=== PATIENT | female | born 1960 | race Caucasian/White ===

== ENCOUNTER 2019-08-13 07:08 | Outpatient (CLI) | payer OTHER, SELFPAY ==
[2019-08-13 08:14] LABS: Alanine Aminotransferase 24 U/L (4-35); Albumin Level 4.2 g/dL (3.5-5.1); Alkaline Phosphatase 97 U/L (38-126); Aspartate Amino Transferase 26 U/L (14-36); Bilirubin,Total 0.5 mg/dL (0.2-1.3); Blood Urea Nitrogen 15 mg/dL (7-17); CRP 0.7 mg/dL (<1.0); Calcium 9.3 mg/dL (8.4-10.2); Carbon Dioxide 24 mmol/L (22-30); Chloride 102 mmol/L (98-107); Creatine Kinase 84 U/L (30-135); Estimated Glomerular Filt Rate > 60; Glucose 171 mg/dL (65-105); Potassium 3.7 mmol/L (3.4-5.0); Sodium 136 mmol/L (137-145)
[2019-08-13 08:17] LABS: Rheumatoid Factor < 8.6 IU/ML (<12)
[2019-08-13 08:19] LABS: Basophils Percent Auto 0.6 % (0.2-1.2); Eosinophils Absolute Auto 0.3 K/mm3 (0-0.3); Eosinophils Percent Auto 6.1 % (0-4.4); Hematocrit 41.8 % (37.0-47.0); Hemoglobin 13.9 g/dL (12.0-15.0); Immature Granulocyte Absolute 0.01 K/mm3 (0.00-0.031); Immature Granulocyte Percent A 0.2 % (0-0.5); Lymphocytes Absolute Auto 1.78 K/mm3 (0.9-3.2); Lymphocytes Percent Auto 33.1 % (18.3-44.2); Mean Corpuscular HGB Conc 33.3 g/dl (32-36); Mean Corpuscular Volume 93.1 fl (80-100); Mean Platelet Volume 10.5 fl (7.4-10.4); Monocytes Absolute Auto 0.5 K/mm3 (0.1-0.6); Monocytes Percent Auto 8.8 % (2.6-8.5); Neutrophils Absolute Auto 2.8 K/mm3 (1.3-6.7); Neutrophils Percent Auto 51.2 % (45.5-73.1); Platelet Count Result 209 k/mm3 (150-375); Red Blood Count 4.49 M/mm3 (4.2-5.4); Red Cell Distribution Width 12.6 % (11.5-14.5); White Blood Count 5.4 K/mm3 (4.5-10.0)
[2019-08-13 09:31] LABS: Add Urine Microscopic? NO; Appearance Urine Clear (Clear); Bilirubin Urine Negative (Negative); Blood Urine Negative (Negative); Color Urine Yellow (Yellow); Glucose Urine UA Negative (Negative); Ketones Urine Negative (Negative); Leukocyte Esterase Ur Negative LEU/UL (NEGATIVE); Mucus Urine Rare /lpf; Nitrate Urine Negative (Negative); Protein Urine Negative (Negative); RBC Urine 0-2 /hpf (0-2); Specific Grav Ur 1.016 (1.001-1.035); Squamous Epithelial Cell Urine Occasional /hpf (Few); Urobilinogen Urine Negative mg/dL (<2.0); WBC Urine 0-3 /hpf (0-3)
[2019-08-15 12:11] LABS: Aldolase 6.4 U/L (<=8.1)
[2019-08-15 20:48] LABS: Anti Cardio Antibody IgM <12 MPL (<=12); Anti Cardiolipin Antibody IgA <11 APL (<=11); Anti Cardiolipin Antibody IgG <14 GPL (<=14)
[2019-08-18 19:58] LABS: JO 1 Antibody <1.0; SS-A <1.0; SS-B <1.0
[2019-08-20 12:54] LABS: Anti Nuclear Antibody Pattern Nuclear, Speckled; Anti Nuclear Antibody Titer 1:40 (Negative)
== END 2019-08-13 07:09 | disposition home or self-care (01) ==
PROVIDERS: PCP Physician Assistant
DX: R21 Rash and other nonspecific skin eruption (principal)
CPT/HCPCS: 36415; 80053; 81003; 82085; 82550; 85025; 86038; 86039; 86140; 86147; 86225; 86235; 86430

== ENCOUNTER 2019-09-13 08:13 | Outpatient (RCR) | payer OTHER, SELFPAY ==
[2019-09-12 15:29] LABS: Basophils Percent Auto 0.6 % (0.2-1.2); Eosinophils Absolute Auto 0.5 K/mm3 (0-0.3); Eosinophils Percent Auto 8.9 % (0-4.4); Hematocrit 39.2 % (37.0-47.0); Hemoglobin 13.2 g/dL (12.0-15.0); Immature Granulocyte Absolute 0.01 K/mm3 (0.00-0.031); Immature Granulocyte Percent A 0.2 % (0-0.5); Lymphocytes Absolute Auto 1.48 K/mm3 (0.9-3.2); Lymphocytes Percent Auto 28.5 % (18.3-44.2); Mean Corpuscular HGB Conc 33.7 g/dl (32-36); Mean Corpuscular Hemoglobin 31.3 pg (26-34); Mean Corpuscular Volume 92.9 fl (80-100); Monocytes Absolute Auto 0.5 K/mm3 (0.1-0.6); Neutrophils Absolute Auto 2.7 K/mm3 (1.3-6.7); Neutrophils Percent Auto 51.8 % (45.5-73.1); Platelet Count Result 228 k/mm3 (150-375); Red Blood Count 4.22 M/mm3 (4.2-5.4); Red Cell Distribution Width 12.8 % (11.5-14.5); White Blood Count 5.2 K/mm3 (4.5-10.0)
[2019-09-12 15:44] LABS: Alanine Aminotransferase 33 U/L (4-35); Alkaline Phosphatase 82 U/L (38-126); Aspartate Amino Transferase 37 U/L (14-36); Bilirubin,Total 0.4 mg/dL (0.2-1.3); Blood Urea Nitrogen 20 mg/dL (7-17); CRP < 0.5 mg/dL (<1.0); Calcium 8.9 mg/dL (8.4-10.2); Carbon Dioxide 25 mmol/L (22-30); Chloride 100 mmol/L (98-107); Creatine Kinase 162 U/L (30-135); Estimated Glomerular Filt Rate > 60; Glucose 140 mg/dL (65-105); Potassium 3.7 mmol/L (3.4-5.0); Sodium 136 mmol/L (137-145)
[2019-09-12 15:55] LABS: Erythrocyte Sedimentation Rate 17 mm/hr (0-20)
[2019-09-13 09:35] LABS: Cholesterol 187 mg/dL (0-200); HDL Direct 88 mg/dL; Triglycerides 83 mg/dL (<150)
[2019-09-13 09:46] LABS: LDL Cholesterol Direct 86 mg/dL
== END 2019-12-11 23:59 | disposition home or self-care (01) ==
LOC: ANHLAB 08:13
PROVIDERS: PCP Physician Assistant
DX: R21 Rash and other nonspecific skin eruption (principal)
CPT/HCPCS: 36415; 80053; 80061; 82550; 84182; 85025; 85652; 86140; 86235

== ENCOUNTER 2019-09-19 13:07 | Outpatient (CLI) | payer OTHER, SELFPAY ==
--- NOTE | ~2019-09-19 | XR_ITS ---
EXAMINATION: XR chest 2V DATE: 09/19/2019 13:41 INDICATION: Rash of unknown origin. TECHNIQUE: Frontal and lateral views of the chest were obtained. COMPARISON: Chest 2 views 08/22/2014 FINDINGS: The chest demonstrates clear lungs without pneumonia, pleural effusion, or pneumothorax. Th e heart size is normal. There is a fracture deformity of left seventh rib, new from 08/22/2014. IMPRESSION: 1. No acute cardiopulmonary disease. Reviewed, dictated and finalized at location A. R WORKER
--- NOTE | ~2019-09-19 | MR_ITS ---
EXAMINATION: MR femur RT wo/w con, MR femur LT wo/w con DATE: 09/19/2019 15:12 INDICATION: Rash/other nonspecific skin interruption. TECHNIQUE: Magnetic resonance imaging (MRI) of the right thigh and left thigh were performed without and with 18 mL Multihance intravenous contrast. Sequences included axial, sagittal and coronal T1-weighted FSE, axial and sagittal T2-weighted FS FSE, coronal fluid sensitive FSE STIR, axial, coronal T1-weighted F S FSE and post contrast axial, and coronal T1-weighted FS FSE. Axial and coronal images of both thigh s were obtained together. Sagittal images of the left and right thigh were obtained separately. COMPARISON: None. FINDINGS: Bone alignment is normal. There is normal bone marrow signal throughout. No evident the hip or knee j oint effusions. There is a relatively symmetric pattern of small patchy regions of increased fluid si gnal and enhancement in some of the musculature of the proximal thighs. This includes within the bila teral proximal vastus lateralis, proximal semitendinosus muscles, obturator internus and quadratus fe kate with relatively symmetric distribution. Small region of mild increased T2 signal at the proxima l left gracilis muscle which is without evident associated enhancement. No asymmetric fatty muscular atrophy of the thighs or pelvis. Subcutaneous varicosities at the lateral, posterolateral and to a le sser degree medial aspect of both thighs. IMPRESSION: 1. Relatively symmetric pattern of small regions of nonspecific increased T2 signal and enhancement w ithin bilateral obturator internus, quadratus femoris, semitendinosus and vastus lateralis muscles. D ifferential particularly given the distribution the proximal lower limbs would include dermatomyositi s, polymyositis, drug related myelopathy, HIV related myelopathy, autoimmune connective tissue diseas es and inclusion body myositis. Given the distribution, infection, vascular, trauma or overuse etiolo gies would be less likely. Reviewed, dictated and finalized at location A. E TEAM LEADER IMPRESSION: 1. Relatively symmetric pattern of small regions of nonspecific increased T2 si gnal and enhancement within bilateral obturator internus, quadratus femoris, se mitendinosus and vastus lateralis muscles. Differential particularly given the distribution the proximal lower limbs would include dermatomyositis, polymyosit is, drug related myelopathy, HIV related myelopathy, autoimmune connective tiss ue diseases and inclusion body myositis. Given the distribution, infection, vas cular, trauma or overuse etiologies would be less likely.
[2019-09-19 13:54] LABS: Estimated Glomerular Filt Rate > 60
== END 2019-09-19 13:08 | disposition home or self-care (01) ==
PROVIDERS: PCP Physician Assistant
DX: R21 Rash and other nonspecific skin eruption (principal); R93.7 Abnormal findings on diagnostic imaging of other parts of musculoskeletal system
CPT/HCPCS: 36415; 71046; 73720; A9577

== ENCOUNTER 2019-09-23 14:05 | Outpatient (CLI) | payer OTHER, SELFPAY ==
--- NOTE | ~2019-09-23 | MR_ITS ---
EXAMINATION: MR shoulder LT wo/w con DATE: 09/23/2019 17:36 INDICATION: Dermatomyositis. Rash and other nonspecific skin interruption. TECHNIQUE: Magnetic resonance imaging (MRI) of the left shoulder was performed without and with 18 mL MultiHance intravenous contrast. Sequences included axial PD-weighted FS FSE, coronal oblique PD-barb ghted FS FSE and T2-weighted FS FSE, and sagittal oblique T2-weighted FS FSE and T1-weighted FSE. Pos tcontrast sequences included coronal oblique and axial oblique T1-weighted FS FSE. COMPARISON: None. FINDINGS: Coracoacromial arch: The acromion undersurface is curved in morphology (type II). Subacromial spurring is noted. There is moderate acromioclavicular joint osteoarthritis. There is moderate subacromial/subdeltoid bursitis. Rotator cuff: There is a full-thickness tear of anterior supraspinatus tendon measuring 4 mm anterior to posterior by 1.8 cm proximal to distal. There is moderate infraspinatus tendinopathy. Teres minor tendon is nor mal. There is severe subscapularis tendinopathy with partial tear. There is volume loss and mild fatt y atrophy of supraspinatus and subscapularis muscle bellies. There is patchy increased T2-weighted si gnal intensity and contrast enhancement involving the supraspinatus, infraspinatus, teres minor, delt oid, coracobrachialis, and triceps muscles. Biceps tendon and glenoid labrum: There is a complete tear of proximal biceps tendon. The glenoid labrum is intact. Fluid: There is no glenohumeral joint effusion. Bones/cartilage: Humeral head cartilage is normal. Glenoid cartilage is normal. IMPRESSION: 1. Patchy abnormalities of the musculature. These findings are not specific for any particular myopat hy. The differential diagnosis includes rhabdomyolysis, autoimmune myositis, polymyositis, dermatomyo sitis, infectious myositis, sarcoid myopathy, and muscular dystrophy. 2. Full-thickness rotator cuff tear. 3. Complete tear of proximal biceps tendon. Reviewed, dictated and finalized at location A. IMPRESSION: 1. Patchy abnormalities of the musculature. These findings are not specific for any particular myopathy. The differential diagnosis includes rhabdomyolysis, a utoimmune myositis, polymyositis, dermatomyositis, infectious myositis, sarcoid myopathy, and muscular dystrophy. 2. Full-thickness rotator cuff tear. 3. Complete tear of proximal biceps tendon.
--- NOTE | ~2019-09-23 | MR_ITS ---
EXAMINATION: MR shoulder RT wo/w con DATE: 09/23/2019 17:36 INDICATION: Dermatomyositis. Rash and other nonspecific skin eruption. TECHNIQUE: Magnetic resonance imaging (MRI) of the right shoulder was performed without intravenous c ontrast. Sequences included axial PD-weighted FS FSE, coronal oblique PD-weighted FS FSE and T2-weigh lissette FS FSE, and sagittal oblique T2-weighted FS FSE and T1-weighted FSE. Postcontrast sequences inclu ded sagittal oblique and coronal oblique T1-weighted FS FSE. COMPARISON: None. FINDINGS: Coracoacromial arch: The acromion undersurface is curved in morphology (type II). Subacromial spurring is noted. There is mild acromioclavicular joint osteoarthritis. There is moderate subacromial/subdeltoid bursitis. Rotator cuff: There is a full-thickness tear of anterior supraspinatus tendon measuring 9 mm anterior to posterior by 10 mm proximal to distal. There is severe infraspinatus tendinopathy. There is a partial tear of t he infraspinatus myotendinous junction. Teres minor tendon is normal. There is mild subscapularis ten dinopathy. There is no asymmetric fatty atrophy of the rotator cuff muscle bellies. There is patchy i ncreased T2-weighted signal intensity and contrast enhancement involving the rotator cuff muscles, de ltoid muscle, and triceps muscle. Biceps tendon and glenoid labrum: Biceps tendon is in bicipital groove. There is mild intra-articular biceps tendinopathy. The glenoid labrum is normal. Fluid: There is no glenohumeral joint effusion. Bones/cartilage: Glenoid cartilage is normal. Humeral head cartilage is normal. IMPRESSION: 1. Patchy abnormalities of the musculature including the rotator cuff muscles, deltoid muscle, and tr iceps muscle. These findings are not specific for any particular diffuse myopathy. The differential d iagnosis includes rhabdomyolysis, autoimmune myositis, polymyositis, dermatomyositis, infectious myos itis, sarcoid myopathy, and muscular dystrophy. 2. Full-thickness rotator cuff tear. Partial tear of infraspinatus myotendinous junction. Reviewed, dictated and finalized at location A. IMPRESSION: 1. Patchy abnormalities of the musculature including the rotator cuff muscles, deltoid muscle, and triceps muscle. These findings are not specific for any par ticular diffuse myopathy. The differential diagnosis includes rhabdomyolysis, a utoimmune myositis, polymyositis, dermatomyositis, infectious myositis, sarcoid myopathy, and muscular dystrophy. 2. Full-thickness rotator cuff tear. Partial tear of infraspinatus myotendinous junction.
[2019-09-23 15:20] LABS: Estimated Glomerular Filt Rate > 60
== END 2019-09-23 14:06 | disposition home or self-care (01) ==
LOC: ANHIMG 14:09
PROVIDERS: PCP Physician Assistant
DX: R21 Rash and other nonspecific skin eruption (principal); S46.212A Strain of muscle, fascia and tendon of other parts of biceps, left arm, initial encounter; X58.XXXA Exposure to other specified factors, initial encounter
CPT/HCPCS: 36415; 73223; A9577

== ENCOUNTER 2019-10-03 10:07 | Outpatient (CLI) | payer OTHER, SELFPAY ==
--- NOTE | 2019-10-11 12:10 | WPDPFTINT ---
PFT Interpretation PFT Interpretation: DOS: 10/03/2019 REQUESTING: Yolis Gonzalez MD REASON FOR TESTING: Autoimmune disease PULMONARY FUNCTION TESTS The results are reproducible. Spirometry: Normal FEV1, FVC, and FEV1%. No significant change with bronchodilator. Lung volumes: Normal total lung capacity 108%, mild air trapping residual volume 129%, increased airway resistance 143%. Diffusion: DLCO 94% normal Flow volume loop: Normal. IMPRESSION: Normal spirometry, mild air trapping suggestive of an obstructive defect, normal diffusion and flow volume loop. No evidence of interstitial lung disease. Leah Farias MD
== END 2019-10-03 10:08 | disposition home or self-care (01) ==
PROVIDERS: PCP Physician Assistant
DX: R21 Rash and other nonspecific skin eruption (principal)
CPT/HCPCS: 94060; 94726; 94729

== ENCOUNTER 2019-10-19 13:01 | Emergency (ER) | payer OTHER, SELFPAY ==
[2019-10-19 13:08] VITALS: BP 130/100; PULSE 119; RESP 19; TEMP 36.4; O2SAT 95
--- NOTE | 2019-10-19 13:14 | ED.URI ---
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 Pt's PCP called in a prescription of Ciprodex for her that she has been taking with no relief. Pt has also been using OTC antihistamine. Pt notes that she had a hole that collapsed in her right ear when she was a child. Pt has a recent PMHx of Dermatomyositis that she was diagnosed with after she started to experience a rash and itching. Pt denies any drainage from these lesions. Pt is on Prednisone, etc for this. She denies congestion, a fever, a sore throat, rhinorrhea, a cough, ear drainage, dental pain, tinnitus, hearing changes, and recent travel. Onset (ago): day(s) (5) Relieving factors: nothing Treatments prior to arrival: other (Ciprodex) Related Data Home Medications Medication Instructions Recorded Confirmed aspirin 81 mg tablet,delayed 81 mg PO DAILY 07/02/19 10/19/19 release calcium polycarbophil 625 mg tablet 1,250 mg PO DAILY 07/02/19 10/19/19 cholecalciferol (vitamin D3) 125 5,000 unit PO DAILY 07/02/19 10/19/19 mcg (5,000 unit) capsule dexlansoprazole 60 mg 60 mg PO DAILY 07/02/19 10/19/19 capsule,biphase delayed release vitamin B complex 1 cap PO DAILY 07/02/19 10/19/19 hydroxychloroquine 200 mg tablet 200 mg PO BID 10/15/19 10/19/19 methotrexate sodium 2.5 mg tablet 2.5 mg PO WEEKLY 10/15/19 10/19/19 prednisone 10 mg tablet 10 mg PO DAILY 10/15/19 10/19/19 Allergies Allergy/AdvReac Type Severity Reaction Status Date / Time No Known Allergies Allergy Unverified 10/15/19 15:10 Review of Systems Review of Systems: Narrative: The patient has been informed that they may have pre-hypertension or Hypertension based on a BP reading in the department. I recommend that the patient call the primary care provider listed on their discharge instructions or a physician of their choice this week to arrange follow up for further evaluation of possible pre-hypertension or Hypertension General/Constitutional: Denies: weight loss,fever Eyes: Denies: Redness,discharge Ears/Nose/Throat: Reports: right ear discomfort; Denies: Epistaxis, ear drainage, congestion, sore throat, rhinorrhea, dental pain, tinnitus, hearing changes Respiratory: Denies: Hemoptysis, cough Gastrointestinal: Denies: Vomiting, Bleeding-rectal Skin: Denies: Lumps, eruption Neurologic: Denies: Focal Weakness,Sz Hematologic: Denies: Petechiae/Purpura Psychiatric: Denies: Suicidal ideation REPLACED BY [facility] Past Medical History Medical History Dermatomyositis Gallstones GERD (gastroesophageal reflux disease) IBS (irritable bowel syndrome) Surgical History Surgical History H/O: hysterectomy Family History Family History Mother Family history of thyroid disease Family history of diabetes mellitus in first degree relative Family history of malignant neoplasm of breast in first degree relative Sibling Family history of malignant neoplasm of breast in first degree relative Family history of type 2 diabetes mellitus Social History Social History Smoking status: Never smoker Second hand tobacco smoke exposure: Yes Alcohol intake: never Comments PCP: TRINY Lopez At time of signature, agree with nursing past medical, surgical, social and family history. There is no relevant family history pertinent to the presenting complaint Exam Narrative: Exam Narrative: General Appearance: Obese Normocephalic, Conjunctiva clear Ear: L. Ext
== END 2019-10-19 13:45 | disposition home or self-care (01) ==
PROVIDERS: Emergency Provider Emergency Medicine; PCP Physician Assistant
DX: H92.01 Otalgia, right ear (principal); K21.9 Gastro-esophageal reflux disease without esophagitis; Z79.82 Long term (current) use of aspirin
CPT/HCPCS: 99213; G0463

== ENCOUNTER 2019-11-12 10:33 | Outpatient (CLI) | payer OTHER, SELFPAY ==
--- NOTE | ~2019-11-12 | MM_ITS ---
EXAMINATION: MM screening thuy BI w gina HISTORY: Screening mammogram TECHNIQUE: Craniocaudal and mediolateral oblique 3-D tomosynthesis images were obtained and synthetic 2-D images were generated. CAD analysis was submitted and interpreted. COMPARISON: Comparison to multiple prior studies sequentially, with oldest reviewed study dated 06/16. BREAST PARENCHYMAL COMPOSITION: The breasts are almost entirely fatty. FINDINGS: There is no evidence of suspicious mass, calcification, or architectural distortion to sugg est malignancy in either breast. There has been no suspicious interval change. IMPRESSION: 1. No mammographic evidence of malignancy. 2. Recommend routine screening mammography in one year. BI-RADS Category 1: Negative Reviewed, dictated and finalized at location A.
== END 2019-11-12 10:34 | disposition home or self-care (01) ==
LOC: ANHIMG 10:35
PROVIDERS: PCP Physician Assistant; Visit Provider Obstetrics & Gynecology
DX: Z12.31 Encounter for screening mammogram for malignant neoplasm of breast (principal)
CPT/HCPCS: 77063; 77067

== ENCOUNTER 2019-11-23 08:30 | Outpatient (CLI) | payer OTHER, SELFPAY ==
--- NOTE | 2019-11-23 09:09 | ECG_ITS ---
Measurements Intervals [place] Rate: 93 P: 38 MT: 150 QRS: -20 QRSD: 98 T: 30 QT: 346 QTc: 431 Interpretive Statements SINUS RHYTHM VOLTAGE CRITERIA FOR LVH LATERAL INFARCT, AGE INDETERMINATE ABNORMAL ECG Electronically Signed On 11-23-2019 14:48:38 CDT by David Tsang D.O.
[2019-11-23 09:48] LABS: Hemoglobin A1C 8.7 % (<5.7)
[2019-11-23 09:52] LABS: Alanine Aminotransferase 32 U/L (4-35); Albumin Level 3.9 g/dL (3.5-5.1); Alkaline Phosphatase 84 U/L (38-126); Aspartate Amino Transferase 24 U/L (14-36); Bilirubin,Total 0.5 mg/dL (0.2-1.3); Blood Urea Nitrogen 12 mg/dL (7-17); Calcium 8.9 mg/dL (8.4-10.2); Carbon Dioxide 29 mmol/L (22-30); Chloride 103 mmol/L (98-107); Estimated Glomerular Filt Rate > 60; Glucose 171 mg/dL (65-105); Potassium 3.6 mmol/L (3.4-5.0); Sodium 136 mmol/L (137-145)
== END 2019-11-23 08:31 | disposition home or self-care (01) ==
PROVIDERS: PCP Physician Assistant; Visit Provider Physician Assistant
DX: E11.9 Type 2 diabetes mellitus without complications (principal); R94.31 Abnormal electrocardiogram [ECG] [EKG]
CPT/HCPCS: 36415; 80053; 83036; 93005

== ENCOUNTER 2020-01-03 16:09 | Outpatient (CLI) | payer OTHER, SELFPAY ==
--- NOTE | ~2020-01-03 | US_ITS ---
EXAMINATION: US venous doppler [facility] DATE: 01/03/2020 16:43 INDICATION: Left lower limb pain and swelling. TECHNIQUE: Grayscale ultrasound images without and with compression and Doppler ultrasound images of the left lower extremity veins were obtained. COMPARISON: None. FINDINGS: The visualized portions of left common femoral vein, profunda (deep) femoral vein, femoral vein, popl iteal vein, peroneal veins, posterior tibial veins, gastrocnemius vein and greater saphenous vein out flow are patent. IMPRESSION: 1. No deep venous thrombosis in the left lower limb. Reviewed, dictated and finalized at location A.
== END 2020-01-03 16:10 | disposition home or self-care (01) ==
PROVIDERS: PCP Physician Assistant; Visit Provider Physician Assistant
DX: M79.89 Other specified soft tissue disorders (principal)
CPT/HCPCS: 93971

== ENCOUNTER 2020-02-12 16:06 | Outpatient (CLI) | payer OTHER, SELFPAY ==
[2020-02-12 17:05] LABS: Hemoglobin 12.8 g/dL (12.0-15.0); Mean Corpuscular HGB Conc 34.6 g/dl (32-36); Mean Corpuscular Hemoglobin 32.8 pg (26-34); Mean Corpuscular Volume 94.9 fl (80-100); Mean Platelet Volume 10.1 fl (7.4-10.4); Platelet Count Result 214 k/mm3 (150-375); Red Cell Distribution Width 13.1 % (11.5-14.5); White Blood Count 4.7 K/mm3 (4.5-10.0)
[2020-02-12 17:36] LABS: Erythrocyte Sedimentation Rate 14 mm/hr (0-20)
[2020-02-12 17:46] LABS: Alanine Aminotransferase 92 U/L (4-35); Albumin Level 4.3 g/dL (3.5-5.1); Alkaline Phosphatase 76 U/L (38-126); Anion Gap 10.8 mmol/L (7-16); Aspartate Amino Transferase 56 U/L (14-36); Bilirubin,Total 0.4 mg/dL (0.2-1.3); Blood Urea Nitrogen 20 mg/dL (7-17); CRP < 0.5 mg/dL (<1.0); Calcium 10.2 mg/dL (8.4-10.2); Carbon Dioxide 27 mmol/L (22-30); Chloride 102 mmol/L (98-107); Creatine Kinase 93 U/L (30-135); Estimated Glomerular Filt Rate 57; Glucose 105 mg/dL (65-105); Potassium 3.8 mmol/L (3.4-5.0); Sodium 136 mmol/L (137-145)
[2020-02-12 17:50] LABS: Complement C3 92 mg/dL (88-165)
[2020-02-12 18:46] LABS: Folic Acid > 20.0 ng/mL (2.76->20)
[2020-02-14 22:11] LABS: Mitochondrial (M2) Ab (IgG) <=20.0 U (<=20.0)
[2020-02-15 18:36] LABS: Anti Cardio Antibody IgM <12 MPL (<=12); Anti Cardiolipin Antibody IgA <11 APL (<=11); Anti Cardiolipin Antibody IgG <14 GPL (<=14)
[2020-02-16 10:30] LABS: SS-A <1.0; SS-B <1.0
[2020-02-16 17:47] LABS: JO 1 Antibody <1.0; Scleroderma 70 Antibody <1.0
[2020-02-16 21:55] LABS: Anti Nuclear Antibody Pattern Nuclear, Speckled; Anti Nuclear Antibody Titer 1:40 (Negative)
[2020-02-17 01:52] LABS: Aldolase 9.1 U/L (<=8.1)
[2020-02-19 20:05] LABS: Complement Total CH50 >60 U/mL (31-60)
== END 2020-02-12 16:07 | disposition home or self-care (01) ==
PROVIDERS: PCP Internal Medicine; Visit Provider Internal Medicine Rheumatology
DX: R53.83 Other fatigue (principal); E55.9 Vitamin D deficiency, unspecified; E53.8 Deficiency of other specified B group vitamins; Z51.81 Encounter for therapeutic drug level monitoring; M33.90 Dermatopolymyositis, unspecified, organ involvement unspecified
CPT/HCPCS: 36415; 80053; 82085; 82306; 82550; 82607; 82746; 83520; 84439; 84443; 85027; 85652; 86038; 86039; 86140; 86146; 86147; 86160; 86162; 86225; 86235

== ENCOUNTER 2020-02-13 15:03 | Outpatient (CLI) | payer OTHER, SELFPAY ==
[2020-02-13 19:37] LABS: Add Urine Microscopic? YES; Appearance Urine Clear (Clear); Bilirubin Urine Negative (Negative); Blood Urine Negative (Negative); Color Urine Yellow (Yellow); Glucose Urine UA Negative (Negative); Ketones Urine Negative (Negative); Leukocyte Esterase Ur Trace LEU/UL (NEGATIVE); Mucus Urine Rare /lpf; Nitrate Urine Negative (Negative); Protein Urine Negative (Negative); RBC Urine 0-2 /hpf (0-2); Specific Grav Ur 1.018 (1.001-1.035); Squamous Epithelial Cell Urine Occasional /hpf (Few); Urobilinogen Urine Negative mg/dL (<2.0); WBC Urine 0-3 /hpf (0-3)
[2020-02-20 21:12] LABS: Lupus dRVVT 1:1 Mix Interpreta Not Indicated; Lupus dRVVT Screen 26 sec (<=45); PTT-LA Screen 29 sec (<=40)
== END 2020-02-13 15:04 | disposition home or self-care (01) ==
LOC: ANHWCLAB 15:07
PROVIDERS: PCP Internal Medicine; Visit Provider Internal Medicine Rheumatology
DX: D23.9 Other benign neoplasm of skin, unspecified (principal)
CPT/HCPCS: 36415; 81001; 85613; 85730

== ENCOUNTER 2020-03-04 14:38 | Outpatient (CLI) | payer OTHER, SELFPAY ==
[2020-03-13 16:05] LABS: TPMT Activity 13
== END 2020-03-04 14:39 | disposition home or self-care (01) ==
PROVIDERS: PCP Internal Medicine
DX: M33.90 Dermatopolymyositis, unspecified, organ involvement unspecified (principal)
CPT/HCPCS: 36415; 82657

== ENCOUNTER 2020-04-01 08:09 | Outpatient (CLI) | payer OTHER, SELFPAY ==
[2020-04-01 08:41] LABS: Hemoglobin A1C 6.7 % (<5.7)
[2020-04-01 08:43] LABS: Alanine Aminotransferase 26 U/L (4-35); Alkaline Phosphatase 75 U/L (38-126); Anion Gap 3 mmol/L (8-16); Aspartate Amino Transferase 25 U/L (14-36); Bilirubin,Total 0.5 mg/dL (0.2-1.3); Blood Urea Nitrogen 17 mg/dL (7-17); Carbon Dioxide 30 mmol/L (22-30); Chloride 106 mmol/L (98-107); Estimated Glomerular Filt Rate > 60; Glucose 186 mg/dL (65-105); Potassium 3.8 mmol/L (3.4-5.0); Sodium 139 mmol/L (137-145)
== END 2020-04-01 08:10 | disposition home or self-care (01) ==
PROVIDERS: PCP Internal Medicine; Visit Provider Physician Assistant
DX: E11.9 Type 2 diabetes mellitus without complications (principal)
CPT/HCPCS: 36415; 80053; 83036

== ENCOUNTER 2020-04-03 14:58 | Outpatient (CLI) | payer OTHER, SELFPAY ==
[2020-04-03 15:53] LABS: Basophils Percent Auto 0.3 % (0.2-1.2); Eosinophils Absolute Auto 0.1 K/mm3 (0-0.3); Eosinophils Percent Auto 0.5 % (0-4.4); Hemoglobin 13.6 g/dL (12.0-15.0); Immature Granulocyte Absolute 0.06 K/mm3 (0.00-0.031); Immature Granulocyte Percent A 0.6 % (0-0.5); Lymphocytes Absolute Auto 1.57 K/mm3 (0.9-3.2); Lymphocytes Percent Auto 16.8 % (18.3-44.2); Mean Corpuscular Hemoglobin 32.8 pg (26-34); Mean Corpuscular Volume 96.4 fl (80-100); Mean Platelet Volume 10.4 fl (7.4-10.4); Monocytes Absolute Auto 0.6 K/mm3 (0.1-0.6); Monocytes Percent Auto 6.2 % (2.6-8.5); Neutrophils Absolute Auto 7.1 K/mm3 (1.3-6.7); Neutrophils Percent Auto 75.6 % (45.5-73.1); Platelet Count Result 231 k/mm3 (150-375); Red Blood Count 4.15 M/mm3 (4.2-5.4); Red Cell Distribution Width 13.2 % (11.5-14.5); White Blood Count 9.4 K/mm3 (4.5-10.0)
[2020-04-03 16:03] LABS: Alanine Aminotransferase 32 U/L (4-35); Albumin Level 4.1 g/dL (3.5-5.1); Alkaline Phosphatase 77 U/L (38-126); Anion Gap 3 mmol/L (8-16); Aspartate Amino Transferase 30 U/L (14-36); Bilirubin,Total 0.5 mg/dL (0.2-1.3); Blood Urea Nitrogen 18 mg/dL (7-17); Calcium 9.7 mg/dL (8.4-10.2); Carbon Dioxide 28 mmol/L (22-30); Chloride 103 mmol/L (98-107); Estimated Glomerular Filt Rate > 60; Glucose 150 mg/dL (65-105); Potassium 3.8 mmol/L (3.4-5.0); Sodium 134 mmol/L (137-145)
== END 2020-04-03 14:59 | disposition home or self-care (01) ==
PROVIDERS: PCP Internal Medicine
DX: Z51.81 Encounter for therapeutic drug level monitoring (principal); Z79.899 Other long term (current) drug therapy
CPT/HCPCS: 36415; 80053; 85025

== ENCOUNTER 2020-04-17 14:32 | Outpatient (CLI) | payer OTHER, SELFPAY ==
[2020-04-17 15:05] LABS: Basophils Percent Auto 0.3 % (0.2-1.2); Eosinophils Absolute Auto 0.1 K/mm3 (0-0.3); Eosinophils Percent Auto 1.4 % (0-4.4); Hematocrit 38.7 % (37.0-47.0); Hemoglobin 13.4 g/dL (12.0-15.0); Immature Granulocyte Absolute 0.02 K/mm3 (0.00-0.031); Immature Granulocyte Percent A 0.3 % (0-0.5); Lymphocytes Absolute Auto 1.27 K/mm3 (0.9-3.2); Lymphocytes Percent Auto 19.7 % (18.3-44.2); Mean Corpuscular HGB Conc 34.6 g/dl (32-36); Mean Corpuscular Hemoglobin 33.2 pg (26-34); Mean Corpuscular Volume 95.8 fl (80-100); Mean Platelet Volume 10.2 fl (7.4-10.4); Monocytes Absolute Auto 0.5 K/mm3 (0.1-0.6); Neutrophils Absolute Auto 4.6 K/mm3 (1.3-6.7); Neutrophils Percent Auto 71.3 % (45.5-73.1); Platelet Count Result 200 k/mm3 (150-375); Red Blood Count 4.04 M/mm3 (4.2-5.4); Red Cell Distribution Width 13.1 % (11.5-14.5); White Blood Count 6.5 K/mm3 (4.5-10.0)
[2020-04-17 15:19] LABS: Alanine Aminotransferase 22 U/L (4-35); Albumin Level 3.9 g/dL (3.5-5.1); Alkaline Phosphatase 71 U/L (38-126); Anion Gap 5 mmol/L (8-16); Aspartate Amino Transferase 28 U/L (14-36); Bilirubin,Total 0.5 mg/dL (0.2-1.3); Blood Urea Nitrogen 21 mg/dL (7-17); Calcium 9.9 mg/dL (8.4-10.2); Carbon Dioxide 31 mmol/L (22-30); Chloride 103 mmol/L (98-107); Creatine Kinase 93 U/L (30-135); Estimated Glomerular Filt Rate > 60; Glucose 173 mg/dL (65-105); Potassium 3.6 mmol/L (3.4-5.0); Sodium 139 mmol/L (137-145)
== END 2020-04-17 14:33 | disposition home or self-care (01) ==
PROVIDERS: PCP Internal Medicine; Visit Provider Internal Medicine Rheumatology
DX: M33.10 Other dermatomyositis, organ involvement unspecified (principal); Z51.81 Encounter for therapeutic drug level monitoring
CPT/HCPCS: 36415; 80053; 82085; 82550; 85025

== ENCOUNTER 2020-05-01 14:49 | Outpatient (CLI) | payer OTHER, SELFPAY ==
[2020-05-01 15:30] LABS: Basophils Percent Auto 0.5 % (0.2-1.2); Eosinophils Absolute Auto 0.2 K/mm3 (0-0.3); Eosinophils Percent Auto 3.5 % (0-4.4); Hematocrit 39.6 % (37.0-47.0); Hemoglobin 13.5 g/dL (12.0-15.0); Immature Granulocyte Absolute 0.03 K/mm3 (0.00-0.031); Immature Granulocyte Percent A 0.5 % (0-0.5); Lymphocytes Absolute Auto 1.41 K/mm3 (0.9-3.2); Lymphocytes Percent Auto 23.7 % (18.3-44.2); Mean Corpuscular HGB Conc 34.1 g/dl (32-36); Mean Corpuscular Hemoglobin 32.8 pg (26-34); Mean Corpuscular Volume 96.4 fl (80-100); Mean Platelet Volume 9.6 fl (7.4-10.4); Monocytes Absolute Auto 0.7 K/mm3 (0.1-0.6); Monocytes Percent Auto 11.1 % (2.6-8.5); Neutrophils Absolute Auto 3.6 K/mm3 (1.3-6.7); Neutrophils Percent Auto 60.7 % (45.5-73.1); Platelet Count Result 246 k/mm3 (150-375); Red Blood Count 4.11 M/mm3 (4.2-5.4); Red Cell Distribution Width 13.1 % (11.5-14.5)
[2020-05-01 15:45] LABS: Alanine Aminotransferase 22 U/L (4-35); Albumin Level 4.1 g/dL (3.5-5.1); Alkaline Phosphatase 76 U/L (38-126); Anion Gap 3 mmol/L (8-16); Aspartate Amino Transferase 28 U/L (14-36); Bilirubin,Total 0.4 mg/dL (0.2-1.3); Blood Urea Nitrogen 22 mg/dL (7-17); Calcium 9.7 mg/dL (8.4-10.2); Carbon Dioxide 32 mmol/L (22-30); Chloride 104 mmol/L (98-107); Estimated Glomerular Filt Rate > 60; Glucose 154 mg/dL (65-105); Potassium 3.9 mmol/L (3.4-5.0); Sodium 139 mmol/L (137-145)
== END 2020-05-01 14:50 | disposition home or self-care (01) ==
LOC: ANHLAB 14:54
PROVIDERS: PCP Internal Medicine
DX: Z51.81 Encounter for therapeutic drug level monitoring (principal); Z79.899 Other long term (current) drug therapy
CPT/HCPCS: 36415; 80053; 85025

== ENCOUNTER 2020-05-06 14:40 | Outpatient (CLI) | payer OTHER, SELFPAY ==
--- NOTE | ~2020-05-06 | DEXA_ITS ---
Bone Density Report Name: Rachel Galvan Age: 60 Sex: Female Ethnicity: White Date of : 1960 Indication: postmenopausal; height loss; inflammatory bowel disease; history of glucocorticoids; hysterectomy; Referring Provider: WAGNER BRINK Study: Bone densitometry was performed. Exam Date: May 06, 2020 Accession number: [id number] Bone Density: Region BMD T-score Z-score Classification AP Spine (L1-L4) 0.871 -1.6 -0.2 Osteopenia Femoral Neck (Left) 0.796 -0.5 0.8 Normal Total Hip (Left) 0.971 0.2 1.1 Normal Total Hip Bilateral Avg 0.972 0.2 1.1 Normal Femoral Neck (Right) 0.749 -0.9 0.3 Normal Total Hip (Right) 0.972 0.2 1.1 Normal World Health Organization criteria for BMD impression classify patients as: Normal (T-score at or above -1.0), Osteopenia (T-score between -1.0 and -2.5), or Osteoporosis (T-score at or below -2.5). 10-year Fracture Risk(1): Major Osteoporotic Fracture 10% Hip Fracture 0.6% Reported Risk Factors: [place] (), Neck BMD=0.749, BMI=34.2, glucocorticoids (1) FRAX(R) Version 3.08. Fracture probability calculated for an untreated patient. Fracture probability may be lower if the patient has received treatment. Previous Exams: Region Exam Age BMD T-score BMD Change BMD Change Date g/cm2 vs Baseline vs Previous AP Spine(L1-L4) 05/06/2020 60 0.871 -1.6 -0.070(-7.4%)* -0.070(-7.4%)* 07/01/2013 53 0.941 -1.0 Total Hip(Left) 05/06/2020 60 0.971 0.2 -0.176(-15.3%) -0.176(-15.3%) 07/01/2013 53 1.147 1.7 Total Hip(Right) 05/06/2020 60 0.972 0.2 -0.213(-18.0%) -0.213(-18.0%) 07/01/2013 53 1.185 2.0 *Denotes significance at 95% confidence level, LSC for AP Spine = 0.022 g/cm2, LSC for Total Hip = 0.027 g/cm2 Clinical Information Provided by Patient: Has taken Glucocorticoids Has used the following medications: Vitamin D Has the following medical conditions: Inflammatory bowel diseases, Hysterectomy Patient maximum height was 65 Menopause Age: 53 Onset of menses at age 17 Number of children 3 Impression: The patient has low bone mass, based on the Total Spine T-score. The patient has an estimated ten-year risk of hip fracture of 0.6% and an estimated ten-year risk of major fracture of 10%, based on the WHO FRAX algorithm. The patient has risk factors, including: history of glucocorticoid therapy. The BMD for the AP Spine(L1-L4) decreased, changing by -7.4% since the last DXA exam. T
== END 2020-05-06 14:41 | disposition home or self-care (01) ==
LOC: ANHIMG 14:41
PROVIDERS: PCP Internal Medicine; Visit Provider Internal Medicine Rheumatology
DX: Z78.0 Asymptomatic menopausal state (principal); M85.88 Other specified disorders of bone density and structure, other site
CPT/HCPCS: 77080

== ENCOUNTER 2020-05-15 14:42 | Outpatient (CLI) | payer OTHER, SELFPAY ==
[2020-05-15 15:11] LABS: Basophils Percent Auto 0.6 % (0.2-1.2); Eosinophils Absolute Auto 0.2 K/mm3 (0-0.3); Eosinophils Percent Auto 3.4 % (0-4.4); Hemoglobin 12.7 g/dL (12.0-15.0); Immature Granulocyte Absolute 0.01 K/mm3 (0.00-0.031); Immature Granulocyte Percent A 0.2 % (0-0.5); Lymphocytes Absolute Auto 1.15 K/mm3 (0.9-3.2); Lymphocytes Percent Auto 21.5 % (18.3-44.2); Mean Corpuscular HGB Conc 34.3 g/dl (32-36); Mean Corpuscular Hemoglobin 32.5 pg (26-34); Mean Corpuscular Volume 94.6 fl (80-100); Mean Platelet Volume 9.7 fl (7.4-10.4); Monocytes Absolute Auto 0.5 K/mm3 (0.1-0.6); Monocytes Percent Auto 8.4 % (2.6-8.5); Neutrophils Absolute Auto 3.5 K/mm3 (1.3-6.7); Neutrophils Percent Auto 65.9 % (45.5-73.1); Platelet Count Result 227 k/mm3 (150-375); Red Blood Count 3.91 M/mm3 (4.2-5.4); Red Cell Distribution Width 12.5 % (11.5-14.5); White Blood Count 5.4 K/mm3 (4.5-10.0)
[2020-05-15 15:27] LABS: Alanine Aminotransferase 22 U/L (4-35); Alkaline Phosphatase 84 U/L (38-126); Anion Gap 7 mmol/L (8-16); Aspartate Amino Transferase 28 U/L (14-36); Bilirubin,Total 0.5 mg/dL (0.2-1.3); Blood Urea Nitrogen 17 mg/dL (7-17); Calcium 9.4 mg/dL (8.4-10.2); Carbon Dioxide 27 mmol/L (22-30); Chloride 105 mmol/L (98-107); Estimated Glomerular Filt Rate > 60; Glucose 137 mg/dL (65-105); Sodium 139 mmol/L (137-145)
== END 2020-05-15 14:43 | disposition home or self-care (01) ==
LOC: ANHLAB 14:46
PROVIDERS: PCP Internal Medicine
DX: Z51.81 Encounter for therapeutic drug level monitoring (principal); Z79.899 Other long term (current) drug therapy
CPT/HCPCS: 36415; 80053; 85025

== ENCOUNTER 2020-05-16 01:35 | Outpatient (CLI) | payer OTHER, SELFPAY ==
[2020-05-16 22:13] LABS: SARS-CoV-2 RNA PCR Negative
== END 2020-05-16 01:36 | disposition home or self-care (01) ==
LOC: ANHCOVIDDT 01:36
PROVIDERS: PCP Internal Medicine; Visit Provider Internal Medicine Gastroenterology
DX: Z01.812 Encounter for preprocedural laboratory examination (principal); Z20.828 Contact with and (suspected) exposure to other viral communicable diseases
CPT/HCPCS: 87635; C9803; U0003

== ENCOUNTER 2020-05-19 00:14 | Day surgery (SDC) | payer OTHER, SELFPAY ==
[2020-05-13 15:21] VITALS: BMI 34.3
--- NOTE | 2020-05-18 14:29 | WPDANESEPPF ---
Anes - Initial Pre Proc Eval Procedure: Operation Date: 05/19/20 07:30 Proposed Procedures p Screening Colonoscopy - Regino López MD Date/Time: 05/18/20 14:29 Surgeon: Regino López MD Pre Op Diagnosis: Neoplasm Screening Patient Data Age: 60 Gender: F Height: 1.6 m Weight: 88 kg Allergies Allergy/AdvReac Type Severity Reaction Status Date / Time No Known Allergies Allergy Verified 05/19/20 06:27 Home Medications Medication Instructions Recorded Confirmed Type aspirin 81 mg tablet,delayed 81 mg PO DAILY 07/02/19 05/13/20 History release calcium polycarbophil 625 mg tablet 1,250 mg PO DAILY 07/02/19 05/13/20 History cholecalciferol (vitamin D3) 125 5,000 unit PO DAILY 07/02/19 05/13/20 History mcg (5,000 unit) capsule vitamin B complex 1 cap PO DAILY 07/02/19 05/13/20 History multivitamin 1 tablet PO DAILY 11/20/19 05/13/20 History hydrocortisone 2.5 % lotion 1 applic TOPICAL BID PRN 11/27/19 05/13/20 History metformin 500 mg tablet 500 mg PO DAILY #90 tablet 01/06/20 05/13/20 Rx azathioprine 100 mg PO BID 05/13/20 05/13/20 History fluticasone propionate [Flonase 2 spray NASAL DAILY PRN 05/13/20 05/13/20 History Allergy Relief] prednisone 2.5 mg PO EVERY OTHER DAY 05/13/20 05/13/20 History triamcinolone acetonide See Rx Instructions .ROUTE .COMPLEX 05/13/20 05/13/20 History Patient hx anesthesia problems: none Family hx anesthesia problems: none PMFSH Past Medical History Medical History (Updated 05/18/20 @ 14:30 by Jim Blake MD) Dermatomyositis Diabetes Gallstones GERD (gastroesophageal reflux disease) IBS (irritable bowel syndrome) Obesity Surgical History Surgical History H/O: hysterectomy Family History Family History Mother Family history of thyroid disease Family history of diabetes mellitus in first degree relative Family history of malignant neoplasm of breast in first degree relative Sibling Family history of malignant neoplasm of breast in first degree relative Family history of type 2 diabetes mellitus Social History Social History Smoking status: Never smoker Second hand tobacco smoke exposure: Yes Alcohol intake: never Substance use: never Substance use type: does not use Living arrangements: with family Spiritual care concerns: No Anes - Eval Final PreProcedure Day of Procedure 05/18/20 14:29 Patient weight: obese Heart: regular rate and rhythm Lungs: clear to auscultation and normal air movement Airway: Mallampati scale class II Neurological: alert and oriented Last oral intake: >/= 8 hours ASA classification: III Emergent: no Anesthetic plan: proceed Anesthesia type and monitoring: general GIVS Informed Consent: The patient's anesthetic plan and its attendant risks and benefits were discussed with the patient/family/POA. Questions were solicited and answers provided to the satisfaction of the patient/family/POA.
[2020-05-19 06:28] VITALS: BP 120/73; PULSE 97; RESP 16; TEMP 37.1; O2SAT 97; BMI 33.6
[2020-05-19] MEDS: LACTATED RINGERS 1,000 ML 150 ML IV CONT (06:43)
[2020-05-19 06:46] LABS: Glucose Point of Care 171 (65-105)
--- NOTE | 2020-05-19 07:49 | WPDGICN ---
Assessment and Plan Assessment and plan (1) Encounter for screening colonoscopy: Code(s): Z12.11 - Encounter for screening for malignant neoplasm of colon Status: Acute Assessment and Plan: Patient appears to be at average risk for colon polyps. Screening colonoscopy will be performed. Further recommendations after endoscopy. High-fiber diet advised for irritable bowel syndrome GI Consult Note Consult date/time: 05/19/20 07:49 HPI: Rachel Galvan is a 60 year old female Seen in evaluation at the request of Sawyer Gardner and Dr Jaron Sosa. patient presents for screening colonoscopy. Her current weight appetite bowel movements are normal. She denies abdominal pain. She has had no bleeding. Her weight remains stable. Last colonoscopy was more than 10 years ago. She has been treated for irritable bowel syndrome. Review of Systems Review of Systems: All systems reviewed & are unremarkable except as noted in HPI and below PMFSH Past Medical History Medical History (Updated 05/19/20 @ 07:51 by Regino López MD) Dermatomyositis Diabetes Gallstones GERD (gastroesophageal reflux disease) IBS (irritable bowel syndrome) Obesity Surgical History Surgical History H/O: hysterectomy Family History Family History Mother Family history of thyroid disease Family history of diabetes mellitus in first degree relative Family history of malignant neoplasm of breast in first degree relative Sibling Family history of malignant neoplasm of breast in first degree relative Family history of type 2 diabetes mellitus Social History Social History Smoking status: Never smoker Second hand tobacco smoke exposure: Yes Alcohol intake: never Substance use: never Substance use type: does not use Living arrangements: with family Spiritual care concerns: No Meds Home Medications and Allergies Home Medications Medication Instructions Recorded Confirmed Type aspirin 81 mg tablet,delayed 81 mg PO DAILY 07/02/19 05/13/20 History release calcium polycarbophil 625 mg tablet 1,250 mg PO DAILY 07/02/19 05/13/20 History cholecalciferol (vitamin D3) 125 5,000 unit PO DAILY 07/02/19 05/13/20 History mcg (5,000 unit) capsule vitamin B complex 1 cap PO DAILY 07/02/19 05/13/20 History multivitamin 1 tablet PO DAILY 11/20/19 05/13/20 History hydrocortisone 2.5 % lotion 1 applic TOPICAL BID PRN 11/27/19 05/13/20 History metformin 500 mg tablet 500 mg PO DAILY #90 tablet 01/06/20 05/13/20 Rx azathioprine 100 mg PO BID 05/13/20 05/13/20 History fluticasone propionate [Flonase 2 spray NASAL DAILY PRN 05/13/20 05/13/20 History Allergy Relief] prednisone 2.5 mg PO EVERY OTHER DAY 05/13/20 05/13/20 History triamcinolone acetonide See Rx Instructions .ROUTE .COMPLEX 05/13/20 05/13/20 History Allergies Allergy/AdvReac Type Severity Reaction Status Date / Time No Known Allergies Allergy Verified 05/19/20 06:27 Vital Signs Vital Signs - 24 hr 05/19/20 06:28 Temperature 98.8 F Pulse Rate 97 Respiratory Rate 16 Blood Pressure 120/73 Pulse Oximetry 97 Exam Narrative: Exam Narrative: Physical exam reveals Vital Signs to be stable. HEENT exam unremarkable. Lungs are clear to auscultation and percussion. Heart is without murmur or extra sounds. Abdominal exam bowel sounds are present soft nontender with no organomegaly. Digital external rectal exam is normal.
[2020-05-19 07:52] VITALS: BP 100/61; PULSE 78; RESP 25; O2SAT 94
[2020-05-19 08:02] VITALS: BP 105/72; PULSE 77; RESP 21; O2SAT 96
[2020-05-19 08:12] VITALS: BP 129/81; PULSE 69; RESP 22; O2SAT 94
== END 2020-05-19 08:25 | disposition home or self-care (01) ==
PROVIDERS: PCP Internal Medicine; Visit Provider Internal Medicine Gastroenterology
PROC: 0DJD8ZZ Inspection of Lower Intestinal Tract, Via Natural or Artificial Opening Endoscopic (ICD-10-PCS; CPT 45378; principal; 2020-05-19 07:30)
DX: Z12.11 Encounter for screening for malignant neoplasm of colon (principal); K64.8 Other hemorrhoids; E11.9 Type 2 diabetes mellitus without complications; K58.9 Irritable bowel syndrome, unspecified; K21.9 Gastro-esophageal reflux disease without esophagitis; E66.9 Obesity, unspecified; Z68.33 Body mass index [BMI] 33.0-33.9, adult; Z79.82 Long term (current) use of aspirin; Z79.84 Long term (current) use of oral hypoglycemic drugs
CPT/HCPCS: 45378; J2001; J2704; J7120

== ENCOUNTER 2020-05-29 14:37 | Outpatient (CLI) | payer OTHER, SELFPAY ==
[2020-05-29 15:42] LABS: Basophils Percent Auto 0.4 % (0.2-1.2); Eosinophils Absolute Auto 0.1 K/mm3 (0-0.3); Eosinophils Percent Auto 1.6 % (0-4.4); Hematocrit 36.3 % (37.0-47.0); Hemoglobin 12.4 g/dL (12.0-15.0); Immature Granulocyte Absolute 0.02 K/mm3 (0.00-0.031); Immature Granulocyte Percent A 0.4 % (0-0.5); Lymphocytes Absolute Auto 0.98 K/mm3 (0.9-3.2); Lymphocytes Percent Auto 17.5 % (18.3-44.2); Mean Corpuscular HGB Conc 34.2 g/dl (32-36); Mean Corpuscular Hemoglobin 32.7 pg (26-34); Mean Corpuscular Volume 95.8 fl (80-100); Mean Platelet Volume 10.4 fl (7.4-10.4); Monocytes Absolute Auto 0.4 K/mm3 (0.1-0.6); Monocytes Percent Auto 6.8 % (2.6-8.5); Neutrophils Absolute Auto 4.1 K/mm3 (1.3-6.7); Neutrophils Percent Auto 73.3 % (45.5-73.1); Platelet Count Result 233 k/mm3 (150-375); Red Blood Count 3.79 M/mm3 (4.2-5.4); Red Cell Distribution Width 12.2 % (11.5-14.5); White Blood Count 5.6 K/mm3 (4.5-10.0)
[2020-05-29 15:56] LABS: Alanine Aminotransferase 20 U/L (4-35); Albumin Level 4.1 g/dL (3.5-5.1); Alkaline Phosphatase 80 U/L (38-126); Anion Gap 7 mmol/L (8-16); Aspartate Amino Transferase 27 U/L (14-36); Bilirubin,Total 0.5 mg/dL (0.2-1.3); Blood Urea Nitrogen 17 mg/dL (7-17); Calcium 9.3 mg/dL (8.4-10.2); Carbon Dioxide 28 mmol/L (22-30); Chloride 102 mmol/L (98-107); Estimated Glomerular Filt Rate > 60; Glucose 198 mg/dL (65-105); Potassium 3.7 mmol/L (3.4-5.0); Sodium 137 mmol/L (137-145)
== END 2020-05-29 14:38 | disposition home or self-care (01) ==
PROVIDERS: PCP Physician Assistant
DX: Z51.81 Encounter for therapeutic drug level monitoring (principal); Z79.899 Other long term (current) drug therapy
CPT/HCPCS: 36415; 80053; 85025

== ENCOUNTER 2020-06-12 10:57 | Outpatient (CLI) | payer OTHER, SELFPAY ==
[2020-06-12 11:39] LABS: Basophils Percent Auto 0.7 % (0.2-1.2); Eosinophils Absolute Auto 0.2 K/mm3 (0-0.3); Eosinophils Percent Auto 3.9 % (0-4.4); Hematocrit 39.7 % (37.0-47.0); Hemoglobin 13.4 g/dL (12.0-15.0); Immature Granulocyte Absolute 0.01 K/mm3 (0.00-0.031); Immature Granulocyte Percent A 0.2 % (0-0.5); Lymphocytes Absolute Auto 1.05 K/mm3 (0.9-3.2); Lymphocytes Percent Auto 22.8 % (18.3-44.2); Mean Corpuscular HGB Conc 33.8 g/dl (32-36); Mean Corpuscular Hemoglobin 32.4 pg (26-34); Mean Corpuscular Volume 96.1 fl (80-100); Mean Platelet Volume 9.9 fl (7.4-10.4); Monocytes Absolute Auto 0.5 K/mm3 (0.1-0.6); Monocytes Percent Auto 10.2 % (2.6-8.5); Neutrophils Absolute Auto 2.9 K/mm3 (1.3-6.7); Neutrophils Percent Auto 62.2 % (45.5-73.1); Platelet Count Result 210 k/mm3 (150-375); Red Blood Count 4.13 M/mm3 (4.2-5.4); Red Cell Distribution Width 12.6 % (11.5-14.5); White Blood Count 4.6 K/mm3 (4.5-10.0)
[2020-06-12 11:43] LABS: Hemoglobin A1C 7.1 % (<5.7)
[2020-06-12 11:48] LABS: Alanine Aminotransferase 17 U/L (4-35); Alkaline Phosphatase 77 U/L (38-126); Anion Gap 4 mmol/L (8-16); Aspartate Amino Transferase 22 U/L (14-36); Bilirubin,Total 0.4 mg/dL (0.2-1.3); Blood Urea Nitrogen 19 mg/dL (7-17); Calcium 9.6 mg/dL (8.4-10.2); Carbon Dioxide 30 mmol/L (22-30); Chloride 103 mmol/L (98-107); Estimated Glomerular Filt Rate > 60; Glucose 174 mg/dL (65-105); Potassium 3.9 mmol/L (3.4-5.0); Sodium 137 mmol/L (137-145)
== END 2020-06-12 10:58 | disposition home or self-care (01) ==
LOC: ANHLAB 11:04
PROVIDERS: PCP Physician Assistant; Visit Provider Physician Assistant
DX: E11.9 Type 2 diabetes mellitus without complications (principal); Z51.81 Encounter for therapeutic drug level monitoring; Z79.899 Other long term (current) drug therapy
CPT/HCPCS: 36415; 80053; 83036; 85025

== ENCOUNTER 2020-07-27 14:43 | Outpatient (CLI) | payer OTHER, SELFPAY ==
[2020-07-27 16:41] LABS: Creatine Kinase 78 U/L (30-135)
[2020-08-04 03:57] LABS: Aldolase 6.5 U/L (<=8.1)
== END 2020-07-27 14:44 | disposition home or self-care (01) ==
LOC: ANHLAB 14:45
PROVIDERS: PCP Physician Assistant; Visit Provider Internal Medicine Rheumatology
DX: B36.9 Superficial mycosis, unspecified (principal)
CPT/HCPCS: 36415; 82085; 82550

== ENCOUNTER 2020-09-21 14:49 | Outpatient (RCR) | payer OTHER, SELFPAY ==
[2020-06-29 15:37] LABS: Basophils Percent Auto 0.4 % (0.2-1.2); Eosinophils Absolute Auto 0.1 K/mm3 (0-0.3); Eosinophils Percent Auto 1.9 % (0-4.4); Hemoglobin 13.7 g/dL (12.0-15.0); Immature Granulocyte Absolute 0.01 K/mm3 (0.00-0.031); Immature Granulocyte Percent A 0.2 % (0-0.5); Lymphocytes Percent Auto 15.8 % (18.3-44.2); Mean Corpuscular HGB Conc 34.3 g/dl (32-36); Mean Corpuscular Hemoglobin 32.6 pg (26-34); Mean Corpuscular Volume 95.2 fl (80-100); Mean Platelet Volume 10.1 fl (7.4-10.4); Monocytes Absolute Auto 0.5 K/mm3 (0.1-0.6); Monocytes Percent Auto 8.8 % (2.6-8.5); Neutrophils Absolute Auto 4.2 K/mm3 (1.3-6.7); Neutrophils Percent Auto 72.9 % (45.5-73.1); Platelet Count Result 216 k/mm3 (150-375); Red Cell Distribution Width 12.4 % (11.5-14.5); White Blood Count 5.7 K/mm3 (4.5-10.0)
[2020-06-29 15:50] LABS: Alanine Aminotransferase 20 U/L (4-35); Alkaline Phosphatase 87 U/L (38-126); Anion Gap 6 mmol/L (8-16); Aspartate Amino Transferase 29 U/L (14-36); Bilirubin,Total 0.5 mg/dL (0.2-1.3); Blood Urea Nitrogen 17 mg/dL (7-17); Calcium 9.9 mg/dL (8.4-10.2); Carbon Dioxide 28 mmol/L (22-30); Chloride 105 mmol/L (98-107); Estimated Glomerular Filt Rate > 60; Glucose 166 mg/dL (65-105); Potassium 3.8 mmol/L (3.4-5.0); Sodium 139 mmol/L (137-145)
[2020-07-13 15:26] LABS: Basophils Percent Auto 0.4 % (0.2-1.2); Eosinophils Absolute Auto 0.1 K/mm3 (0-0.3); Eosinophils Percent Auto 2.8 % (0-4.4); Hematocrit 39.6 % (37.0-47.0); Hemoglobin 13.6 g/dL (12.0-15.0); Immature Granulocyte Absolute 0.01 K/mm3 (0.00-0.031); Immature Granulocyte Percent A 0.2 % (0-0.5); Lymphocytes Absolute Auto 0.82 K/mm3 (0.9-3.2); Lymphocytes Percent Auto 17.9 % (18.3-44.2); Mean Corpuscular HGB Conc 34.3 g/dl (32-36); Mean Corpuscular Hemoglobin 32.5 pg (26-34); Mean Corpuscular Volume 94.5 fl (80-100); Mean Platelet Volume 10.1 fl (7.4-10.4); Monocytes Absolute Auto 0.4 K/mm3 (0.1-0.6); Monocytes Percent Auto 9.4 % (2.6-8.5); Neutrophils Absolute Auto 3.2 K/mm3 (1.3-6.7); Neutrophils Percent Auto 69.3 % (45.5-73.1); Platelet Count Result 213 k/mm3 (150-375); Red Blood Count 4.19 M/mm3 (4.2-5.4); Red Cell Distribution Width 12.6 % (11.5-14.5); White Blood Count 4.6 K/mm3 (4.5-10.0)
[2020-07-13 15:42] LABS: Alanine Aminotransferase 17 U/L (4-35); Albumin Level 3.8 g/dL (3.5-5.1); Alkaline Phosphatase 84 U/L (38-126); Anion Gap 7 mmol/L (8-16); Aspartate Amino Transferase 29 U/L (14-36); Bilirubin,Total 0.4 mg/dL (0.2-1.3); Blood Urea Nitrogen 19 mg/dL (7-17); Calcium 9.4 mg/dL (8.4-10.2); Carbon Dioxide 25 mmol/L (22-30); Chloride 105 mmol/L (98-107); Estimated Glomerular Filt Rate > 60; Glucose 170 mg/dL (65-105); Potassium 3.8 mmol/L (3.4-5.0); Sodium 137 mmol/L (137-145)
[2020-07-27 16:32] LABS: Basophils Percent Auto 0.2 % (0.2-1.2); Eosinophils Absolute Auto 0.2 K/mm3 (0-0.3); Eosinophils Percent Auto 3.2 % (0-4.4); Hematocrit 39.3 % (37.0-47.0); Hemoglobin 13.7 g/dL (12.0-15.0); Immature Granulocyte Absolute 0.03 K/mm3 (0.00-0.031); Immature Granulocyte Percent A 0.6 % (0-0.5); Lymphocytes Absolute Auto 0.75 K/mm3 (0.9-3.2); Lymphocytes Percent Auto 14.9 % (18.3-44.2); Mean Corpuscular HGB Conc 34.9 g/dl (32-36); Mean Corpuscular Hemoglobin 32.4 pg (26-34); Mean Corpuscular Volume 92.9 fl (80-100); Mean Platelet Volume 10.3 fl (7.4-10.4); Monocytes Absolute Auto 0.5 K/mm3 (0.1-0.6); Monocytes Percent Auto 9.2 % (2.6-8.5); Neutrophils Absolute Auto 3.6 K/mm3 (1.3-6.7); Neutrophils Percent Auto 71.9 % (45.5-73.1); Platelet Count Result 222 k/mm3 (150-375); Red Blood Count 4.23 M/mm3 (4.2-5.4); Red Cell Distribution Width 12.6 % (11.5-14.5)
[2020-07-27 16:46] LABS: Alanine Aminotransferase 17 U/L (4-35); Albumin Level 4.1 g/dL (3.5-5.1); Alkaline Phosphatase 90 U/L (38-126); Anion Gap 6 mmol/L (8-16); Aspartate Amino Transferase 29 U/L (14-36); Bilirubin,Total 0.5 mg/dL (0.2-1.3); Blood Urea Nitrogen 19 mg/dL (7-17); Calcium 9.3 mg/dL (8.4-10.2); Carbon Dioxide 24 mmol/L (22-30); Chloride 105 mmol/L (98-107); Estimated Glomerular Filt Rate > 60; Glucose 155 mg/dL (65-105); Potassium 3.7 mmol/L (3.4-5.0); Sodium 135 mmol/L (137-145)
[2020-08-10 16:16] LABS: Basophils Percent Auto 0.2 % (0.2-1.2); Eosinophils Absolute Auto 0.1 K/mm3 (0-0.3); Eosinophils Percent Auto 2.2 % (0-4.4); Hematocrit 38.7 % (37.0-47.0); Hemoglobin 13.4 g/dL (12.0-15.0); Immature Granulocyte Absolute 0.01 K/mm3 (0.00-0.031); Immature Granulocyte Percent A 0.2 % (0-0.5); Lymphocytes Absolute Auto 0.79 K/mm3 (0.9-3.2); Lymphocytes Percent Auto 17.6 % (18.3-44.2); Mean Corpuscular HGB Conc 34.6 g/dl (32-36); Mean Corpuscular Hemoglobin 32.4 pg (26-34); Mean Corpuscular Volume 93.5 fl (80-100); Mean Platelet Volume 10.1 fl (7.4-10.4); Monocytes Absolute Auto 0.5 K/mm3 (0.1-0.6); Monocytes Percent Auto 10.9 % (2.6-8.5); Neutrophils Absolute Auto 3.1 K/mm3 (1.3-6.7); Neutrophils Percent Auto 68.9 % (45.5-73.1); Platelet Count Result 204 k/mm3 (150-375); Red Blood Count 4.14 M/mm3 (4.2-5.4); Red Cell Distribution Width 12.8 % (11.5-14.5); White Blood Count 4.5 K/mm3 (4.5-10.0)
[2020-08-10 16:51] LABS: Alanine Aminotransferase 17 U/L (4-35); Albumin Level 4.1 g/dL (3.5-5.1); Alkaline Phosphatase 78 U/L (38-126); Anion Gap 7 mmol/L (8-16); Aspartate Amino Transferase 31 U/L (14-36); Bilirubin,Total 0.6 mg/dL (0.2-1.3); Blood Urea Nitrogen 21 mg/dL (7-17); Calcium 9.2 mg/dL (8.4-10.2); Carbon Dioxide 26 mmol/L (22-30); Chloride 103 mmol/L (98-107); Estimated Glomerular Filt Rate > 60; Glucose 141 mg/dL (65-105); Potassium 3.7 mmol/L (3.4-5.0); Sodium 136 mmol/L (137-145)
[2020-08-24 15:42] LABS: Alanine Aminotransferase 16 U/L (4-35); Albumin Level 4.2 g/dL (3.5-5.1); Alkaline Phosphatase 80 U/L (38-126); Anion Gap 5 mmol/L (8-16); Aspartate Amino Transferase 31 U/L (14-36); Bilirubin,Total 0.4 mg/dL (0.2-1.3); Blood Urea Nitrogen 19 mg/dL (7-17); Calcium 9.6 mg/dL (8.4-10.2); Carbon Dioxide 28 mmol/L (22-30); Chloride 105 mmol/L (98-107); Estimated Glomerular Filt Rate > 60; Glucose 175 mg/dL (65-105); Potassium 3.9 mmol/L (3.4-5.0); Sodium 138 mmol/L (137-145)
[2020-08-24 16:11] LABS: Basophils Percent Auto 0.4 % (0.2-1.2); Eosinophils Absolute Auto 0.1 K/mm3 (0-0.3); Eosinophils Percent Auto 2.3 % (0-4.4); Hematocrit 39.2 % (37.0-47.0); Hemoglobin 13.4 g/dL (12.0-15.0); Immature Granulocyte Absolute 0.02 K/mm3 (0.00-0.031); Immature Granulocyte Percent A 0.4 % (0-0.5); Lymphocytes Absolute Auto 0.87 K/mm3 (0.9-3.2); Lymphocytes Percent Auto 18.1 % (18.3-44.2); Mean Corpuscular HGB Conc 34.2 g/dl (32-36); Mean Corpuscular Hemoglobin 32.1 pg (26-34); Mean Corpuscular Volume 93.8 fl (80-100); Mean Platelet Volume 10.3 fl (7.4-10.4); Monocytes Absolute Auto 0.5 K/mm3 (0.1-0.6); Monocytes Percent Auto 10.6 % (2.6-8.5); Neutrophils Absolute Auto 3.3 K/mm3 (1.3-6.7); Neutrophils Percent Auto 68.2 % (45.5-73.1); Platelet Count Result 216 k/mm3 (150-375); Red Blood Count 4.18 M/mm3 (4.2-5.4); Red Cell Distribution Width 12.9 % (11.5-14.5); White Blood Count 4.8 K/mm3 (4.5-10.0)
[2020-09-07 14:58] LABS: Basophils Percent Auto 0.4 % (0.2-1.2); Eosinophils Absolute Auto 0.1 K/mm3 (0-0.3); Eosinophils Percent Auto 2.9 % (0-4.4); Hematocrit 39.7 % (37.0-47.0); Hemoglobin 13.7 g/dL (12.0-15.0); Immature Granulocyte Absolute 0.01 K/mm3 (0.00-0.031); Immature Granulocyte Percent A 0.2 % (0-0.5); Lymphocytes Absolute Auto 0.81 K/mm3 (0.9-3.2); Lymphocytes Percent Auto 18.2 % (18.3-44.2); Mean Corpuscular HGB Conc 34.5 g/dl (32-36); Mean Corpuscular Hemoglobin 32.8 pg (26-34); Mean Platelet Volume 9.7 fl (7.4-10.4); Monocytes Absolute Auto 0.5 K/mm3 (0.1-0.6); Monocytes Percent Auto 10.5 % (2.6-8.5); Neutrophils Percent Auto 67.8 % (45.5-73.1); Platelet Count Result 216 k/mm3 (150-375); Red Blood Count 4.18 M/mm3 (4.2-5.4); Red Cell Distribution Width 13.2 % (11.5-14.5); White Blood Count 4.5 K/mm3 (4.5-10.0)
[2020-09-07 15:21] LABS: Hemoglobin A1C 7.5 % (<5.7)
[2020-09-21 15:58] LABS: Basophils Percent Auto 0.2 % (0.2-1.2); Eosinophils Absolute Auto 0.1 K/mm3 (0-0.3); Eosinophils Percent Auto 2.1 % (0-4.4); Hematocrit 38.6 % (37.0-47.0); Hemoglobin 13.3 g/dL (12.0-15.0); Immature Granulocyte Absolute 0.01 K/mm3 (0.00-0.031); Immature Granulocyte Percent A 0.2 % (0-0.5); Lymphocytes Absolute Auto 0.65 K/mm3 (0.9-3.2); Lymphocytes Percent Auto 15.4 % (18.3-44.2); Mean Corpuscular HGB Conc 34.5 g/dl (32-36); Mean Corpuscular Hemoglobin 33.1 pg (26-34); Mean Platelet Volume 9.9 fl (7.4-10.4); Monocytes Absolute Auto 0.4 K/mm3 (0.1-0.6); Monocytes Percent Auto 9.5 % (2.6-8.5); Neutrophils Absolute Auto 3.1 K/mm3 (1.3-6.7); Neutrophils Percent Auto 72.6 % (45.5-73.1); Platelet Count Result 220 k/mm3 (150-375); Red Blood Count 4.02 M/mm3 (4.2-5.4); Red Cell Distribution Width 13.3 % (11.5-14.5); White Blood Count 4.2 K/mm3 (4.5-10.0)
[2020-09-21 16:21] LABS: Alanine Aminotransferase 15 U/L (4-35); Albumin Level 4.1 g/dL (3.5-5.1); Alkaline Phosphatase 81 U/L (38-126); Anion Gap 4 mmol/L (8-16); Aspartate Amino Transferase 29 U/L (14-36); Bilirubin,Total 0.5 mg/dL (0.2-1.3); Blood Urea Nitrogen 23 mg/dL (7-17); Calcium 9.4 mg/dL (8.4-10.2); Carbon Dioxide 28 mmol/L (22-30); Chloride 105 mmol/L (98-107); Estimated Glomerular Filt Rate > 60; Glucose 186 mg/dL (65-105); Sodium 137 mmol/L (137-145)
== END 2020-09-27 23:59 | disposition home or self-care (01) ==
LOC: ANHLAB 14:49
PROVIDERS: PCP Physician Assistant
DX: Z51.81 Encounter for therapeutic drug level monitoring (principal); Z79.899 Other long term (current) drug therapy
CPT/HCPCS: 36415; 80053; 83036; 85025

== ENCOUNTER 2020-11-13 14:40 | Outpatient (CLI) | payer OTHER, SELFPAY ==
--- NOTE | ~2020-11-13 | MM_ITS ---
EXAMINATION: MM screening thuy BI w gina HISTORY: Screening mammogram TECHNIQUE: Craniocaudal and mediolateral oblique 3-D tomosynthesis images were obtained and synthetic 2-D images were generated. CAD analysis was submitted and interpreted. COMPARISON: 11/12/2019, 10/09/2018, 08/28/2017, 08/18/2016 bilateral digital screening mammogram examinati ons BREAST PARENCHYMAL COMPOSITION: The breasts are almost entirely fatty. FINDINGS: Stable chronic 4.8 x 12 mm circumscribed opacity in the posterior lower outer left breast, unchanged since 08/18/2016. There is no evidence of suspicious mass, calcification, or architectural di stortion to suggest malignancy in either breast. There has been no suspicious interval change. IMPRESSION: 1. No mammographic evidence of malignancy. 2. Recommend routine screening mammography in one year. BI-RADS Category 2: Benign finding(s). Reviewed, dictated and finalized at location A.
== END 2020-11-13 14:41 | disposition home or self-care (01) ==
LOC: ANHIMG 14:47
PROVIDERS: PCP Physician Assistant; Visit Provider Nurse Practitioner Obstetrics & Gynecology
DX: Z12.31 Encounter for screening mammogram for malignant neoplasm of breast (principal)
CPT/HCPCS: 77063; 77067

== ENCOUNTER 2020-12-08 08:25 | Outpatient (CLI) | payer OTHER, SELFPAY ==
[2020-12-08 09:07] LABS: Cholesterol 213 mg/dL (0-200); HDL Direct 80 mg/dL; Triglycerides 92 mg/dL (<150)
[2020-12-08 09:17] LABS: LDL Cholesterol Direct 93 mg/dL
[2020-12-08 10:21] LABS: Hemoglobin A1C 8.4 % (<5.7)
== END 2020-12-08 08:26 | disposition home or self-care (01) ==
PROVIDERS: PCP Physician Assistant; Visit Provider Physician Assistant
DX: E11.9 Type 2 diabetes mellitus without complications (principal); R53.83 Other fatigue
CPT/HCPCS: 36415; 80061; 83036; 84443

== ENCOUNTER 2020-12-22 17:04 | Outpatient (RCR) | payer OTHER, SELFPAY ==
[2020-10-06 15:10] LABS: Basophils Percent Auto 0.3 % (0.2-1.2); Eosinophils Absolute Auto 0.2 K/mm3 (0-0.3); Eosinophils Percent Auto 4.3 % (0-4.4); Hematocrit 36.9 % (37.0-47.0); Hemoglobin 12.8 g/dL (12.0-15.0); Immature Granulocyte Absolute 0.01 K/mm3 (0.00-0.031); Immature Granulocyte Percent A 0.3 % (0-0.5); Lymphocytes Absolute Auto 0.75 K/mm3 (0.9-3.2); Lymphocytes Percent Auto 21.6 % (18.3-44.2); Mean Corpuscular HGB Conc 34.7 g/dl (32-36); Mean Corpuscular Hemoglobin 32.7 pg (26-34); Mean Corpuscular Volume 94.1 fl (80-100); Mean Platelet Volume 9.8 fl (7.4-10.4); Monocytes Absolute Auto 0.3 K/mm3 (0.1-0.6); Monocytes Percent Auto 7.2 % (2.6-8.5); Neutrophils Absolute Auto 2.3 K/mm3 (1.3-6.7); Neutrophils Percent Auto 66.3 % (45.5-73.1); Platelet Count Result 202 k/mm3 (150-375); Red Blood Count 3.92 M/mm3 (4.2-5.4); Red Cell Distribution Width 13.7 % (11.5-14.5); White Blood Count 3.5 K/mm3 (4.5-10.0)
[2020-10-06 15:32] LABS: Alanine Aminotransferase 24 U/L (4-35); Albumin Level 4.1 g/dL (3.5-5.1); Alkaline Phosphatase 87 U/L (38-126); Anion Gap 6 mmol/L (8-16); Aspartate Amino Transferase 41 U/L (14-36); Bilirubin,Total 0.9 mg/dL (0.2-1.3); Blood Urea Nitrogen 24 mg/dL (7-17); Calcium 9.3 mg/dL (8.4-10.2); Carbon Dioxide 26 mmol/L (22-30); Chloride 103 mmol/L (98-107); Estimated Glomerular Filt Rate > 60; Glucose 197 mg/dL (65-105); Potassium 3.9 mmol/L (3.4-5.0); Sodium 135 mmol/L (137-145)
[2020-11-03 15:55] LABS: Basophils Percent Auto 0.4 % (0.2-1.2); Eosinophils Absolute Auto 0.1 K/mm3 (0-0.3); Eosinophils Percent Auto 3.1 % (0-4.4); Hematocrit 35.8 % (37.0-47.0); Hemoglobin 12.5 g/dL (12.0-15.0); Immature Granulocyte Absolute 0.01 K/mm3 (0.00-0.031); Immature Granulocyte Percent A 0.4 % (0-0.5); Lymphocytes Absolute Auto 0.58 K/mm3 (0.9-3.2); Lymphocytes Percent Auto 22.8 % (18.3-44.2); Mean Corpuscular HGB Conc 34.9 g/dl (32-36); Mean Corpuscular Hemoglobin 34.6 pg (26-34); Mean Corpuscular Volume 99.2 fl (80-100); Mean Platelet Volume 9.8 fl (7.4-10.4); Monocytes Absolute Auto 0.3 K/mm3 (0.1-0.6); Monocytes Percent Auto 11.4 % (2.6-8.5); Neutrophils Absolute Auto 1.6 K/mm3 (1.3-6.7); Neutrophils Percent Auto 61.9 % (45.5-73.1); Platelet Count Result 190 k/mm3 (150-375); Red Blood Count 3.61 M/mm3 (4.2-5.4); Red Cell Distribution Width 15.6 % (11.5-14.5); White Blood Count 2.5 K/mm3 (4.5-10.0)
[2020-11-03 16:09] LABS: Alanine Aminotransferase 27 U/L (4-35); Albumin Level 3.9 g/dL (3.5-5.1); Alkaline Phosphatase 96 U/L (38-126); Anion Gap 3 mmol/L (8-16); Aspartate Amino Transferase 40 U/L (14-36); Bilirubin,Total 0.7 mg/dL (0.2-1.3); Blood Urea Nitrogen 17 mg/dL (7-17); Calcium 8.6 mg/dL (8.4-10.2); Carbon Dioxide 29 mmol/L (22-30); Chloride 104 mmol/L (98-107); Estimated Glomerular Filt Rate > 60; Glucose 225 mg/dL (65-105); Potassium 3.9 mmol/L (3.4-5.0); Sodium 136 mmol/L (137-145)
[2020-12-08 08:58] LABS: Basophils Percent Auto 0.4 % (0.2-1.2); Eosinophils Absolute Auto 0.1 K/mm3 (0-0.3); Eosinophils Percent Auto 3.6 % (0-4.4); Hemoglobin 13.3 g/dL (12.0-15.0); Immature Granulocyte Absolute 0.01 K/mm3 (0.00-0.031); Immature Granulocyte Percent A 0.4 % (0-0.5); Lymphocytes Absolute Auto 0.67 K/mm3 (0.9-3.2); Lymphocytes Percent Auto 26.8 % (18.3-44.2); Mean Platelet Volume 9.9 fl (7.4-10.4); Monocytes Absolute Auto 0.3 K/mm3 (0.1-0.6); Monocytes Percent Auto 12.8 % (2.6-8.5); Neutrophils Absolute Auto 1.4 K/mm3 (1.3-6.7); Platelet Count Result 187 k/mm3 (150-375); Red Cell Distribution Width 14.8 % (11.5-14.5); White Blood Count 2.5 K/mm3 (4.5-10.0)
[2020-12-08 09:06] LABS: Alanine Aminotransferase 40 U/L (4-35); Albumin Level 4.1 g/dL (3.5-5.1); Alkaline Phosphatase 93 U/L (38-126); Anion Gap 6 mmol/L (8-16); Aspartate Amino Transferase 52 U/L (14-36); Bilirubin,Total 0.7 mg/dL (0.2-1.3); Blood Urea Nitrogen 14 mg/dL (7-17); Calcium 9.5 mg/dL (8.4-10.2); Carbon Dioxide 29 mmol/L (22-30); Chloride 107 mmol/L (98-107); Estimated Glomerular Filt Rate > 60; Glucose 192 mg/dL (65-105); Sodium 142 mmol/L (137-145)
[2020-12-22 17:20] LABS: Basophils Percent Auto 0.6 % (0.2-1.2); Eosinophils Absolute Auto 0.2 K/mm3 (0-0.3); Immature Granulocyte Absolute 0.01 K/mm3 (0.00-0.031); Immature Granulocyte Percent A 0.3 % (0-0.5); Lymphocytes Absolute Auto 0.76 K/mm3 (0.9-3.2); Lymphocytes Percent Auto 20.9 % (18.3-44.2); Mean Corpuscular HGB Conc 35.1 g/dl (32-36); Mean Corpuscular Hemoglobin 34.8 pg (26-34); Mean Corpuscular Volume 98.9 fl (80-100); Mean Platelet Volume 9.8 fl (7.4-10.4); Monocytes Absolute Auto 0.5 K/mm3 (0.1-0.6); Monocytes Percent Auto 13.2 % (2.6-8.5); Neutrophils Absolute Auto 2.2 K/mm3 (1.3-6.7); Platelet Count Result 182 k/mm3 (150-375); Red Blood Count 3.74 M/mm3 (4.2-5.4); Red Cell Distribution Width 13.8 % (11.5-14.5); White Blood Count 3.6 K/mm3 (4.5-10.0)
[2020-12-22 17:31] LABS: Alanine Aminotransferase 25 U/L (4-35); Albumin Level 4.1 g/dL (3.5-5.1); Alkaline Phosphatase 99 U/L (38-126); Anion Gap 8 mmol/L (8-16); Aspartate Amino Transferase 34 U/L (14-36); Bilirubin,Total 0.7 mg/dL (0.2-1.3); Blood Urea Nitrogen 24 mg/dL (7-17); Calcium 9.7 mg/dL (8.4-10.2); Carbon Dioxide 27 mmol/L (22-30); Chloride 105 mmol/L (98-107); Estimated Glomerular Filt Rate > 60; Glucose 155 mg/dL (65-105); Potassium 3.9 mmol/L (3.4-5.0); Sodium 140 mmol/L (137-145)
== END 2021-01-04 23:59 | disposition home or self-care (01) ==
LOC: ANHLAB 17:04
PROVIDERS: PCP Physician Assistant; Visit Provider Dermatology
DX: Z51.81 Encounter for therapeutic drug level monitoring (principal); Z79.899 Other long term (current) drug therapy
CPT/HCPCS: 36415; 80053; 85025

== ENCOUNTER 2021-01-26 15:16 | Outpatient (RCR) | payer OTHER, SELFPAY ==
[2021-01-26 16:06] LABS: Basophils Percent Auto 0.5 % (0.2-1.2); Eosinophils Absolute Auto 0.1 K/mm3 (0-0.3); Eosinophils Percent Auto 2.9 % (0-4.4); Hematocrit 38.7 % (37.0-47.0); Hemoglobin 13.1 g/dL (12.0-15.0); Immature Granulocyte Absolute 0.01 K/mm3 (0.00-0.031); Immature Granulocyte Percent A 0.2 % (0-0.5); Lymphocytes Absolute Auto 0.61 K/mm3 (0.9-3.2); Lymphocytes Percent Auto 13.8 % (18.3-44.2); Mean Corpuscular HGB Conc 33.9 g/dl (32-36); Mean Corpuscular Hemoglobin 33.8 pg (26-34); Mean Corpuscular Volume 99.7 fl (80-100); Mean Platelet Volume 9.8 fl (7.4-10.4); Monocytes Absolute Auto 0.5 K/mm3 (0.1-0.6); Monocytes Percent Auto 10.9 % (2.6-8.5); Neutrophils Absolute Auto 3.2 K/mm3 (1.3-6.7); Neutrophils Percent Auto 71.7 % (45.5-73.1); Platelet Count Result 191 k/mm3 (150-375); Red Blood Count 3.88 M/mm3 (4.2-5.4); Red Cell Distribution Width 12.4 % (11.5-14.5); White Blood Count 4.4 K/mm3 (4.5-10.0)
[2021-01-26 16:14] LABS: Alanine Aminotransferase 17 U/L (4-35); Albumin Level 4.4 g/dL (3.5-5.1); Alkaline Phosphatase 81 U/L (38-126); Anion Gap 7 mmol/L (8-16); Aspartate Amino Transferase 32 U/L (14-36); Bilirubin,Total 0.7 mg/dL (0.2-1.3); Blood Urea Nitrogen 20 mg/dL (7-17); Calcium 10.2 mg/dL (8.4-10.2); Carbon Dioxide 29 mmol/L (22-30); Chloride 101 mmol/L (98-107); Estimated Glomerular Filt Rate > 60; Glucose 154 mg/dL (65-105); Potassium 3.7 mmol/L (3.4-5.0); Sodium 137 mmol/L (137-145)
== END 2021-01-26 15:17 | disposition home or self-care (01) ==
LOC: ANHLAB 15:16
PROVIDERS: PCP Physician Assistant; Visit Provider Dermatology
DX: Z51.81 Encounter for therapeutic drug level monitoring (principal); Z79.899 Other long term (current) drug therapy
CPT/HCPCS: 36415; 80053; 85025

== ENCOUNTER 2021-03-31 15:07 | Outpatient (RCR) | payer OTHER, SELFPAY ==
[2021-01-05 15:15] LABS: Basophils Percent Auto 0.5 % (0.2-1.2); Eosinophils Absolute Auto 0.2 K/mm3 (0-0.3); Eosinophils Percent Auto 3.8 % (0-4.4); Hematocrit 37.6 % (37.0-47.0); Hemoglobin 12.9 g/dL (12.0-15.0); Immature Granulocyte Absolute 0.01 K/mm3 (0.00-0.031); Immature Granulocyte Percent A 0.3 % (0-0.5); Lymphocytes Absolute Auto 0.69 K/mm3 (0.9-3.2); Lymphocytes Percent Auto 17.4 % (18.3-44.2); Mean Corpuscular HGB Conc 34.3 g/dl (32-36); Mean Corpuscular Hemoglobin 34.4 pg (26-34); Mean Corpuscular Volume 100.3 fl (80-100); Mean Platelet Volume 9.9 fl (7.4-10.4); Monocytes Absolute Auto 0.5 K/mm3 (0.1-0.6); Monocytes Percent Auto 12.1 % (2.6-8.5); Neutrophils Absolute Auto 2.6 K/mm3 (1.3-6.7); Neutrophils Percent Auto 65.9 % (45.5-73.1); Platelet Count Result 185 k/mm3 (150-375); Red Blood Count 3.75 M/mm3 (4.2-5.4); Red Cell Distribution Width 12.9 % (11.5-14.5)
[2021-01-05 15:26] LABS: Alanine Aminotransferase 17 U/L (4-35); Albumin Level 4.2 g/dL (3.5-5.1); Alkaline Phosphatase 82 U/L (38-126); Anion Gap 6 mmol/L (8-16); Aspartate Amino Transferase 32 U/L (14-36); Bilirubin,Total 0.6 mg/dL (0.2-1.3); Blood Urea Nitrogen 19 mg/dL (7-17); Calcium 9.3 mg/dL (8.4-10.2); Carbon Dioxide 29 mmol/L (22-30); Chloride 103 mmol/L (98-107); Estimated Glomerular Filt Rate > 60; Glucose 147 mg/dL (65-105); Potassium 3.8 mmol/L (3.4-5.0); Sodium 138 mmol/L (137-145)
[2021-02-09 11:28] LABS: Basophils Percent Auto 0.7 % (0.2-1.2); Eosinophils Absolute Auto 0.2 K/mm3 (0-0.3); Eosinophils Percent Auto 5.6 % (0-4.4); Hematocrit 36.9 % (37.0-47.0); Hemoglobin 12.9 g/dL (12.0-15.0); Lymphocytes Absolute Auto 0.56 K/mm3 (0.9-3.2); Lymphocytes Percent Auto 18.5 % (18.3-44.2); Mean Corpuscular Hemoglobin 33.8 pg (26-34); Mean Corpuscular Volume 96.6 fl (80-100); Mean Platelet Volume 9.4 fl (7.4-10.4); Monocytes Absolute Auto 0.4 K/mm3 (0.1-0.6); Monocytes Percent Auto 13.5 % (2.6-8.5); Neutrophils Absolute Auto 1.9 K/mm3 (1.3-6.7); Neutrophils Percent Auto 61.7 % (45.5-73.1); Platelet Count Result 173 k/mm3 (150-375); Red Blood Count 3.82 M/mm3 (4.2-5.4); Red Cell Distribution Width 12.2 % (11.5-14.5)
[2021-02-09 11:45] LABS: Alanine Aminotransferase 15 U/L (4-35); Albumin Level 4.1 g/dL (3.5-5.1); Alkaline Phosphatase 69 U/L (38-126); Anion Gap 5 mmol/L (8-16); Aspartate Amino Transferase 29 U/L (14-36); Bilirubin,Total 0.6 mg/dL (0.2-1.3); Blood Urea Nitrogen 19 mg/dL (7-17); Calcium 9.4 mg/dL (8.4-10.2); Carbon Dioxide 28 mmol/L (22-30); Chloride 104 mmol/L (98-107); Estimated Glomerular Filt Rate > 60; Glucose 147 mg/dL (65-110); Potassium 4.1 mmol/L (3.4-5.0); Sodium 137 mmol/L (137-145)
[2021-02-23 16:57] LABS: Basophils Percent Auto 0.6 % (0.2-1.2); Eosinophils Absolute Auto 0.2 K/mm3 (0-0.3); Eosinophils Percent Auto 4.2 % (0-4.4); Hematocrit 37.7 % (37.0-47.0); Hemoglobin 12.6 g/dL (12.0-15.0); Immature Granulocyte Absolute 0.01 K/mm3 (0.00-0.031); Immature Granulocyte Percent A 0.3 % (0-0.5); Lymphocytes Absolute Auto 0.52 K/mm3 (0.9-3.2); Lymphocytes Percent Auto 14.5 % (18.3-44.2); Mean Corpuscular HGB Conc 33.4 g/dl (32-36); Mean Corpuscular Hemoglobin 32.7 pg (26-34); Mean Corpuscular Volume 97.9 fl (80-100); Mean Platelet Volume 9.6 fl (7.4-10.4); Monocytes Absolute Auto 0.4 K/mm3 (0.1-0.6); Monocytes Percent Auto 10.6 % (2.6-8.5); Neutrophils Absolute Auto 2.5 K/mm3 (1.3-6.7); Neutrophils Percent Auto 69.8 % (45.5-73.1); Platelet Count Result 177 k/mm3 (150-375); Red Blood Count 3.85 M/mm3 (4.2-5.4); Red Cell Distribution Width 12.6 % (11.5-14.5); White Blood Count 3.6 K/mm3 (4.5-10.0)
[2021-02-23 17:09] LABS: Alanine Aminotransferase 20 U/L (4-35); Albumin Level 4.3 g/dL (3.5-5.1); Alkaline Phosphatase 75 U/L (38-126); Anion Gap 8 mmol/L (8-16); Aspartate Amino Transferase 32 U/L (14-36); Bilirubin,Total 0.4 mg/dL (0.2-1.3); Blood Urea Nitrogen 19 mg/dL (7-17); Calcium 9.2 mg/dL (8.4-10.2); Carbon Dioxide 25 mmol/L (22-30); Chloride 102 mmol/L (98-107); Estimated Glomerular Filt Rate 57; Glucose 133 mg/dL (65-110); Potassium 3.6 mmol/L (3.4-5.0); Sodium 135 mmol/L (137-145)
[2021-03-31 16:04] LABS: Basophils Percent Auto 0.3 % (0.2-1.2); Eosinophils Absolute Auto 0.1 K/mm3 (0-0.3); Eosinophils Percent Auto 0.8 % (0-4.4); Hematocrit 36.6 % (37.0-47.0); Hemoglobin 12.6 g/dL (12.0-15.0); Immature Granulocyte Absolute 0.03 K/mm3 (0.00-0.031); Immature Granulocyte Percent A 0.5 % (0-0.5); Lymphocytes Absolute Auto 0.97 K/mm3 (0.9-3.2); Lymphocytes Percent Auto 15.1 % (18.3-44.2); Mean Corpuscular HGB Conc 34.4 g/dl (32-36); Mean Corpuscular Hemoglobin 32.6 pg (26-34); Mean Corpuscular Volume 94.6 fl (80-100); Mean Platelet Volume 10.1 fl (7.4-10.4); Monocytes Absolute Auto 0.5 K/mm3 (0.1-0.6); Neutrophils Absolute Auto 4.8 K/mm3 (1.3-6.7); Neutrophils Percent Auto 75.3 % (45.5-73.1); Platelet Count Result 203 k/mm3 (150-375); Red Blood Count 3.87 M/mm3 (4.2-5.4); Red Cell Distribution Width 12.5 % (11.5-14.5); White Blood Count 6.4 K/mm3 (4.5-10.0)
[2021-03-31 16:24] LABS: Alanine Aminotransferase 21 U/L (4-35); Albumin Level 3.7 g/dL (3.5-5.1); Alkaline Phosphatase 78 U/L (38-126); Anion Gap 8 mmol/L (8-16); Aspartate Amino Transferase 32 U/L (14-36); Bilirubin,Total 0.5 mg/dL (0.2-1.3); Blood Urea Nitrogen 22 mg/dL (7-17); Carbon Dioxide 26 mmol/L (22-30); Chloride 102 mmol/L (98-107); Estimated Glomerular Filt Rate > 60; Glucose 133 mg/dL (65-110); Potassium 3.3 mmol/L (3.4-5.0); Sodium 136 mmol/L (137-145)
== END 2021-04-05 23:59 | disposition home or self-care (01) ==
LOC: ANHLAB 15:07
PROVIDERS: PCP Physician Assistant; Visit Provider Dermatology
DX: Z51.81 Encounter for therapeutic drug level monitoring (principal); Z79.899 Other long term (current) drug therapy
CPT/HCPCS: 36415; 80053; 85025

== ENCOUNTER 2021-05-05 16:05 | Outpatient (RCR) | payer OTHER, SELFPAY ==
[2021-05-05 16:24] LABS: Basophils Percent Auto 0.6 % (0.2-1.2); Eosinophils Absolute Auto 0.2 K/mm3 (0-0.3); Hematocrit 34.8 % (37.0-47.0); Hemoglobin 11.9 g/dL (12.0-15.0); Immature Granulocyte Absolute 0.01 K/mm3 (0.00-0.031); Immature Granulocyte Percent A 0.3 % (0-0.5); Lymphocytes Absolute Auto 0.51 K/mm3 (0.9-3.2); Lymphocytes Percent Auto 14.2 % (18.3-44.2); Mean Corpuscular HGB Conc 34.2 g/dl (32-36); Mean Corpuscular Hemoglobin 33.7 pg (26-34); Mean Corpuscular Volume 98.6 fl (80-100); Mean Platelet Volume 9.6 fl (7.4-10.4); Monocytes Absolute Auto 0.3 K/mm3 (0.1-0.6); Monocytes Percent Auto 9.5 % (2.6-8.5); Neutrophils Absolute Auto 2.5 K/mm3 (1.3-6.7); Neutrophils Percent Auto 70.4 % (45.5-73.1); Platelet Count Result 193 k/mm3 (150-375); Red Blood Count 3.53 M/mm3 (4.2-5.4); Red Cell Distribution Width 14.6 % (11.5-14.5); White Blood Count 3.6 K/mm3 (4.5-10.0)
[2021-05-05 16:35] LABS: Alanine Aminotransferase 16 U/L (4-35); Albumin Level 4.2 g/dL (3.5-5.1); Alkaline Phosphatase 82 U/L (38-126); Anion Gap 8 mmol/L (8-16); Aspartate Amino Transferase 32 U/L (14-36); Bilirubin,Total 0.4 mg/dL (0.2-1.3); Blood Urea Nitrogen 19 mg/dL (7-17); Calcium 9.4 mg/dL (8.4-10.2); Carbon Dioxide 25 mmol/L (22-30); Chloride 105 mmol/L (98-107); Estimated Glomerular Filt Rate > 60; Glucose 176 mg/dL (65-110); Potassium 3.9 mmol/L (3.4-5.0); Sodium 138 mmol/L (137-145)
== END 2021-08-03 23:59 | disposition home or self-care (01) ==
LOC: ANHLAB 16:05
PROVIDERS: PCP Physician Assistant; Visit Provider Dermatology
DX: Z51.81 Encounter for therapeutic drug level monitoring (principal); Z79.899 Other long term (current) drug therapy
CPT/HCPCS: 36415; 80053; 85025

== ENCOUNTER 2021-11-01 09:35 | Outpatient (RCR) | payer OTHER, SELFPAY ==
[2021-08-11 17:36] LABS: Basophils Percent Auto 0.3 % (0.2-1.2); Eosinophils Absolute Auto 0.2 K/mm3 (0-0.3); Eosinophils Percent Auto 5.1 % (0-4.4); Hemoglobin 13.3 g/dL (12.0-15.0); Immature Granulocyte Absolute 0.01 K/mm3 (0.00-0.031); Immature Granulocyte Percent A 0.3 % (0-0.5); Lymphocytes Absolute Auto 0.78 K/mm3 (0.9-3.2); Lymphocytes Percent Auto 20.8 % (18.3-44.2); Mean Corpuscular Hemoglobin 32.6 pg (26-34); Mean Corpuscular Volume 93.1 fl (80-100); Mean Platelet Volume 9.5 fl (7.4-10.4); Monocytes Absolute Auto 0.5 K/mm3 (0.1-0.6); Monocytes Percent Auto 12.5 % (2.6-8.5); Neutrophils Absolute Auto 2.3 K/mm3 (1.3-6.7); Platelet Count Result 184 k/mm3 (150-375); Red Blood Count 4.08 M/mm3 (4.2-5.4); Red Cell Distribution Width 13.2 % (11.5-14.5); White Blood Count 3.8 K/mm3 (4.5-10.0)
[2021-08-11 18:17] LABS: Alanine Aminotransferase 18 U/L (4-35); Albumin Level 4.4 g/dL (3.5-5.1); Alkaline Phosphatase 95 U/L (38-126); Anion Gap 7 mmol/L (8-16); Aspartate Amino Transferase 28 U/L (14-36); Bilirubin,Total 0.6 mg/dL (0.2-1.3); Blood Urea Nitrogen 25 mg/dL (7-17); Calcium 9.4 mg/dL (8.4-10.2); Carbon Dioxide 27 mmol/L (22-30); Chloride 103 mmol/L (98-107); Estimated Glomerular Filt Rate > 60; Glucose 167 mg/dL (65-110); Potassium 4.1 mmol/L (3.4-5.0); Sodium 137 mmol/L (137-145)
[2021-11-01 10:08] LABS: Eosinophils Absolute Auto 0.2 K/mm3 (0-0.3); Eosinophils Percent Auto 6.1 % (0-4.4); Hematocrit 41.2 % (37.0-47.0); Hemoglobin 13.8 g/dL (12.0-15.0); Immature Granulocyte Absolute 0.01 K/mm3 (0.00-0.031); Immature Granulocyte Percent A 0.3 % (0-0.5); Lymphocytes Absolute Auto 0.63 K/mm3 (0.9-3.2); Lymphocytes Percent Auto 20.1 % (18.3-44.2); Mean Corpuscular HGB Conc 33.5 g/dl (32-36); Mean Corpuscular Hemoglobin 32.5 pg (26-34); Mean Corpuscular Volume 97.2 fl (80-100); Mean Platelet Volume 9.6 fl (7.4-10.4); Monocytes Absolute Auto 0.4 K/mm3 (0.1-0.6); Monocytes Percent Auto 11.5 % (2.6-8.5); Neutrophils Absolute Auto 1.9 K/mm3 (1.3-6.7); Platelet Count Result 180 k/mm3 (150-375); Red Blood Count 4.24 M/mm3 (4.2-5.4); Red Cell Distribution Width 13.6 % (11.5-14.5); White Blood Count 3.1 K/mm3 (4.5-10.0)
[2021-11-01 10:15] LABS: Alanine Aminotransferase 15 U/L (4-35); Albumin Level 4.3 g/dL (3.5-5.1); Alkaline Phosphatase 87 U/L (38-126); Anion Gap 6 mmol/L (8-16); Aspartate Amino Transferase 30 U/L (14-36); Bilirubin,Total 0.3 mg/dL (0.2-1.3); Blood Urea Nitrogen 12 mg/dL (7-17); Calcium 9.3 mg/dL (8.4-10.2); Carbon Dioxide 27 mmol/L (22-30); Chloride 104 mmol/L (98-107); Estimated Glomerular Filt Rate > 60; Glucose 166 mg/dL (65-110); Potassium 3.9 mmol/L (3.4-5.0); Sodium 137 mmol/L (137-145)
== END 2021-11-09 23:59 | disposition home or self-care (01) ==
LOC: ANHLAB 09:35
PROVIDERS: PCP Physician Assistant; Visit Provider Dermatology
DX: Z51.81 Encounter for therapeutic drug level monitoring (principal); Z79.899 Other long term (current) drug therapy
CPT/HCPCS: 36415; 80053; 85025

== ENCOUNTER 2021-11-01 09:37 | Outpatient (CLI) | payer OTHER, SELFPAY ==
[2021-11-01 10:17] LABS: CRP < 0.5 mg/dL (<1.0); Creatine Kinase 50 U/L (30-135)
[2021-11-01 10:37] LABS: Erythrocyte Sedimentation Rate 11 mm/hr (0-20)
[2021-11-01 10:38] LABS: Vitamin D 25 Hydroxy 51.5 ng/mL
[2021-11-01 11:31] LABS: Folic Acid > 20.0 ng/mL (2.76->20)
[2021-11-05 04:59] LABS: Aldolase 3.8 U/L (<=8.1)
== END 2021-11-01 09:38 | disposition home or self-care (01) ==
LOC: ANHLAB 09:39
PROVIDERS: PCP Physician Assistant; Visit Provider Internal Medicine Rheumatology
DX: E55.9 Vitamin D deficiency, unspecified (principal); Z51.81 Encounter for therapeutic drug level monitoring; M33.90 Dermatopolymyositis, unspecified, organ involvement unspecified
CPT/HCPCS: 36415; 82085; 82306; 82550; 82607; 82746; 85652; 86140

== ENCOUNTER 2021-11-16 16:24 | Outpatient (RCR) | payer OTHER, SELFPAY ==
[2021-11-16 16:41] LABS: Basophils Percent Auto 0.6 % (0.2-1.2); Eosinophils Absolute Auto 0.2 K/mm3 (0-0.3); Eosinophils Percent Auto 4.3 % (0-4.4); Hematocrit 37.8 % (37.0-47.0); Hemoglobin 13.2 g/dL (12.0-15.0); Immature Granulocyte Absolute 0.02 K/mm3 (0.00-0.031); Immature Granulocyte Percent A 0.4 % (0-0.5); Lymphocytes Absolute Auto 0.87 K/mm3 (0.9-3.2); Lymphocytes Percent Auto 17.9 % (18.3-44.2); Mean Corpuscular HGB Conc 34.9 g/dl (32-36); Mean Corpuscular Hemoglobin 32.8 pg (26-34); Mean Corpuscular Volume 93.8 fl (80-100); Mean Platelet Volume 9.3 fl (7.4-10.4); Monocytes Absolute Auto 0.6 K/mm3 (0.1-0.6); Monocytes Percent Auto 11.3 % (2.6-8.5); Neutrophils Absolute Auto 3.2 K/mm3 (1.3-6.7); Neutrophils Percent Auto 65.5 % (45.5-73.1); Platelet Count Result 208 k/mm3 (150-375); Red Blood Count 4.03 M/mm3 (4.2-5.4); Red Cell Distribution Width 12.9 % (11.5-14.5); White Blood Count 4.9 K/mm3 (4.5-10.0)
[2021-11-16 16:50] LABS: Alanine Aminotransferase 17 U/L (4-35); Albumin Level 4.2 g/dL (3.5-5.1); Alkaline Phosphatase 92 U/L (38-126); Anion Gap 2 mmol/L (8-16); Aspartate Amino Transferase 35 U/L (14-36); Bilirubin,Total 0.4 mg/dL (0.2-1.3); Blood Urea Nitrogen 20 mg/dL (7-17); Calcium 9.1 mg/dL (8.4-10.2); Carbon Dioxide 29 mmol/L (22-30); Chloride 105 mmol/L (98-107); Estimated Glomerular Filt Rate > 60; Glucose 127 mg/dL (65-110); Potassium 4.2 mmol/L (3.4-5.0); Sodium 136 mmol/L (137-145)
== END 2022-02-14 23:59 | disposition home or self-care (01) ==
LOC: ANHLAB 16:24
PROVIDERS: PCP Physician Assistant; Visit Provider Dermatology
DX: Z51.81 Encounter for therapeutic drug level monitoring (principal); Z79.899 Other long term (current) drug therapy
CPT/HCPCS: 36415; 80053; 85025

== ENCOUNTER 2021-12-16 15:01 | Outpatient (CLI) | payer OTHER, SELFPAY ==
--- NOTE | ~2021-12-16 | MM_ITS ---
EXAMINATION: MM screening thuy BI w gina HISTORY: Screening mammogram TECHNIQUE: Craniocaudal and mediolateral oblique 3-D tomosynthesis images were obtained and synthetic 2-D images were generated. CAD analysis was submitted and interpreted. COMPARISON: 11/13/2020, 11/04/2019, 10/09/2018 bilateral screening mammogram examinations BREAST PARENCHYMAL COMPOSITION: The breasts are almost entirely fatty. FINDINGS: Stable small circumscribed opacity in the posterior outer left breast since prior examinati ons. There is no evidence of suspicious mass, calcification, or architectural distortion to suggest m alignancy in either breast. There has been no suspicious interval change. IMPRESSION: 1. No mammographic evidence of malignancy. 2. Recommend routine screening mammography in one year. BI-RADS Category 2: Benign Reviewed, dictated and finalized at location A.
== END 2021-12-16 15:02 | disposition home or self-care (01) ==
LOC: ANHIMG 15:03
PROVIDERS: PCP Physician Assistant; Visit Provider Nurse Practitioner Obstetrics & Gynecology
DX: Z12.31 Encounter for screening mammogram for malignant neoplasm of breast (principal)
CPT/HCPCS: 77063; 77067

== ENCOUNTER 2022-01-08 07:44 | Outpatient (CLI) | payer OTHER, SELFPAY ==
[2022-01-08 08:52] LABS: Cholesterol 193 mg/dL (0-200); HDL Direct 88 mg/dL; Triglycerides 52 mg/dL (<150)
[2022-01-08 08:59] LABS: Creatinine Urine 191.4 mg/dL
[2022-01-08 09:02] LABS: LDL Cholesterol Direct 70 mg/dL
[2022-01-08 09:05] LABS: MALB Creatinine Ratio 5.6 mg/g (0-30); Microalbumin Urine Random 10.8 mg/L (0-16.7)
[2022-01-08 09:07] LABS: Hemoglobin A1C 6.6 % (<5.7)
== END 2022-01-08 07:45 | disposition home or self-care (01) ==
LOC: ANHLAB 07:46
PROVIDERS: PCP Physician Assistant; Visit Provider Physician Assistant
DX: E11.9 Type 2 diabetes mellitus without complications (principal); R53.83 Other fatigue
CPT/HCPCS: 36415; 80061; 82043; 83036; 84443

== ENCOUNTER 2022-05-29 14:48 | Emergency (ER) | payer OTHER, SELFPAY ==
--- NOTE | 2022-05-29 14:57 | ED.URI ---
HPI - URI/Sore Throat General Chief Complaint: Upper Respiratory Infection Stated Complaint: eye redness and sinus pressure and drainage Time Seen by Provider: 05/29/22 14:57 Source: patient Mode of arrival: ambulatory Limitations: no limitations History of Present Illness HPI Narrative: Is a 62-year-old female patient presenting to clinic today with possible sinus infection and eyes matting shut. She reports she is having sinus pressure and drainage as well as eye redness. She denies any fever or chills. She reports that her eyes have been matting shut in the morning with yellow discharge. Eyes were itching and mild mildly painful MD elicited complaint: sore throat and nasal congestion Related Data Home Medications Medication Instructions Recorded Confirmed aspirin 81 mg tablet,delayed 81 mg PO DAILY 07/02/19 12/03/21 release (Adult Low Dose Aspirin) calcium polycarbophil 625 mg 1,250 mg PO DAILY 07/02/19 12/03/21 tablet (Fiber (calcium polycarbophil)) cholecalciferol (vitamin D3) 125 5,000 unit PO DAILY 07/02/19 12/03/21 mcg (5,000 unit) capsule vitamin B complex 1 cap PO DAILY 07/02/19 12/03/21 multivitamin (Multiple Vitamins 1 tablet PO DAILY 11/20/19 12/03/21 tablet) azathioprine 50 mg tablet 100 mg PO BID 05/13/20 12/03/21 Allergies Allergy/AdvReac Type Severity Reaction Status Date / Time No Known Allergies Allergy Verified 12/03/21 15:06 Review of Systems Review of Systems: Pertinent positives per HPI. Patient denies any fever, chills, rash, visual changes, dizziness, cough, shortness of breath, chest pain, palpitations, nausea, vomiting, diarrhea, constipation, abdominal pain, or any urinary issues. [facility] Past Medical History Medical History Dermatomyositis Diabetes Gallstones GERD (gastroesophageal reflux disease) IBS (irritable bowel syndrome) Obesity Surgical History Surgical History H/O: hysterectomy Family History Family History Mother Family history of thyroid disease Family history of diabetes mellitus in first degree relative Family history of malignant neoplasm of breast in first degree relative Sibling Family history of malignant neoplasm of breast in first degree relative Family history of type 2 diabetes mellitus Social History Social History Smoking status: Never smoker Second hand tobacco smoke exposure: Yes Alcohol intake: never Substance use: never Substance use type: does not use Spiritual care concerns: No Comments At the time of my signature, I reviewed and agree with the nursing past medical, surgical, social, and family history. There is no relevant family history pertinent to the patient complaint. Exam Narrative: General: Well-developed, well nourished, in no apparent distress Head: Normocephalic, atraumatic Eyes: Pupils equally round and reactive to light bilaterally, EOM intact, sclera and conjunctive injected right greater than left with yellow mucopurulent discharge, bilateral lid swelling Ears: TMs intact and clear, ear canals clear, no drainage, grossly hearing normal. Nose: Nares patent, clear nasal discharge, moderate inflammation, maxillary sinus tenderness. Mouth: Oral pharynx without lesions or masses, good dentition, MMM. Postnasal drip Neck: Supple, trachea midline, no enlargement of anterior or posterior cervical nodes, no thyroid masses or goiter palpable. Cardio: Regular rate and rhythm, s1 and s2 normal, no murmur appreciated. Resp: Clear to auscultation bilaterally, no rhonchi, rales, wheezing or rubs Course Course Emergency Course: Portions of this record may have been created with voice recognition software. Level of Care: Express Care Visit Vital Signs
[2022-05-29 14:58] VITALS: BP 126/76; PULSE 113; RESP 16; TEMP 36.9; O2SAT 96
== END 2022-05-29 15:11 | disposition home or self-care (01) ==
PROVIDERS: Emergency Provider Nurse Practitioner Family; PCP Physician Assistant
DX: J01.00 Acute maxillary sinusitis, unspecified (principal); H10.33 Unspecified acute conjunctivitis, bilateral; E11.9 Type 2 diabetes mellitus without complications; K21.9 Gastro-esophageal reflux disease without esophagitis; E66.9 Obesity, unspecified; Z68.32 Body mass index [BMI] 32.0-32.9, adult; Z79.82 Long term (current) use of aspirin
CPT/HCPCS: 99213; G0463

== ENCOUNTER 2022-06-01 15:26 | Outpatient (RCR) | payer OTHER, SELFPAY ==
[2022-03-24 16:36] LABS: Basophils Percent Auto 0.6 % (0.2-1.2); Eosinophils Absolute Auto 0.2 K/mm3 (0-0.3); Eosinophils Percent Auto 2.8 % (0-4.4); Hematocrit 38.4 % (37.0-47.0); Hemoglobin 13.4 g/dL (12.0-15.0); Immature Granulocyte Absolute 0.01 K/mm3 (0.00-0.031); Immature Granulocyte Percent A 0.2 % (0-0.5); Lymphocytes Absolute Auto 1.07 K/mm3 (0.9-3.2); Lymphocytes Percent Auto 20.3 % (18.3-44.2); Mean Corpuscular HGB Conc 34.9 g/dl (32-36); Mean Corpuscular Hemoglobin 31.9 pg (26-34); Mean Corpuscular Volume 91.4 fl (80-100); Mean Platelet Volume 9.6 fl (7.4-10.4); Monocytes Absolute Auto 0.5 K/mm3 (0.1-0.6); Monocytes Percent Auto 8.5 % (2.6-8.5); Neutrophils Absolute Auto 3.6 K/mm3 (1.3-6.7); Neutrophils Percent Auto 67.6 % (45.5-73.1); Platelet Count Result 187 k/mm3 (150-375); Red Cell Distribution Width 13.3 % (11.5-14.5); White Blood Count 5.3 K/mm3 (4.5-10.0)
[2022-03-24 16:48] LABS: Alanine Aminotransferase 19 U/L (6-35); Albumin Level 4.5 g/dL (3.5-5.1); Alkaline Phosphatase 81 U/L (38-126); Anion Gap 11 mmol/L (8-16); Aspartate Amino Transferase 32 U/L (14-36); Bilirubin,Total 0.4 mg/dL (0.2-1.3); Blood Urea Nitrogen 20 mg/dL (7-17); Calcium 9.2 mg/dL (8.4-10.2); Carbon Dioxide 24 mmol/L (22-30); Chloride 102 mmol/L (98-107); Estimated Glomerular Filt Rate > 60; Glucose 122 mg/dL (65-110); Potassium 3.9 mmol/L (3.4-5.0); Sodium 137 mmol/L (137-145)
[2022-06-01 16:08] LABS: Basophils Percent Auto 0.6 % (0.2-1.2); Eosinophils Absolute Auto 0.1 K/mm3 (0-0.3); Hematocrit 37.7 % (37.0-47.0); Hemoglobin 12.7 g/dL (12.0-15.0); Immature Granulocyte Absolute 0.03 K/mm3 (0.00-0.031); Immature Granulocyte Percent A 0.4 % (0-0.5); Lymphocytes Absolute Auto 0.95 K/mm3 (0.9-3.2); Lymphocytes Percent Auto 13.4 % (18.3-44.2); Mean Corpuscular HGB Conc 33.7 g/dl (32-36); Mean Corpuscular Hemoglobin 31.8 pg (26-34); Mean Corpuscular Volume 94.3 fl (80-100); Mean Platelet Volume 9.2 fl (7.4-10.4); Monocytes Absolute Auto 0.8 K/mm3 (0.1-0.6); Monocytes Percent Auto 10.7 % (2.6-8.5); Neutrophils Absolute Auto 5.2 K/mm3 (1.3-6.7); Neutrophils Percent Auto 72.9 % (45.5-73.1); Platelet Count Result 249 k/mm3 (150-375); Red Cell Distribution Width 12.5 % (11.5-14.5); White Blood Count 7.1 K/mm3 (4.5-10.0)
[2022-06-01 16:13] LABS: Alanine Aminotransferase 19 U/L (6-35); Albumin Level 4.2 g/dL (3.5-5.1); Alkaline Phosphatase 95 U/L (38-126); Anion Gap 11 mmol/L (8-16); Aspartate Amino Transferase 31 U/L (14-36); Bilirubin,Total 0.5 mg/dL (0.2-1.3); Blood Urea Nitrogen 25 mg/dL (7-17); Calcium 9.6 mg/dL (8.4-10.2); Carbon Dioxide 24 mmol/L (22-30); Chloride 102 mmol/L (98-107); Estimated Glomerular Filt Rate 56; Glucose 136 mg/dL (65-110); Sodium 137 mmol/L (137-145)
== END 2022-06-22 23:59 | disposition home or self-care (01) ==
LOC: ANHLAB 15:26
PROVIDERS: PCP Physician Assistant; Visit Provider Dermatology
DX: Z51.81 Encounter for therapeutic drug level monitoring (principal); Z79.899 Other long term (current) drug therapy
CPT/HCPCS: 36415; 80053; 85025

== ENCOUNTER 2022-11-05 07:11 | Outpatient (CLI) | payer OTHER, SELFPAY ==
[2022-11-05 08:24] LABS: Basophils Percent Auto 0.8 % (0.2-1.2); Eosinophils Absolute Auto 0.2 K/mm3 (0-0.3); Eosinophils Percent Auto 6.1 % (0-4.4); Hematocrit 41.5 % (37.0-47.0); Immature Granulocyte Absolute 0.01 K/mm3 (0.00-0.031); Immature Granulocyte Percent A 0.3 % (0-0.5); Lymphocytes Absolute Auto 1.26 K/mm3 (0.9-3.2); Lymphocytes Percent Auto 32.1 % (18.3-44.2); Mean Corpuscular HGB Conc 33.7 g/dl (32-36); Mean Corpuscular Hemoglobin 32.3 pg (26-34); Mean Corpuscular Volume 95.6 fl (80-100); Mean Platelet Volume 10.4 fl (7.4-10.4); Monocytes Absolute Auto 0.3 K/mm3 (0.1-0.6); Monocytes Percent Auto 8.2 % (2.6-8.5); Neutrophils Absolute Auto 2.1 K/mm3 (1.3-6.7); Neutrophils Percent Auto 52.5 % (45.5-73.1); Platelet Count Result 186 k/mm3 (150-375); Red Blood Count 4.34 M/mm3 (4.2-5.4); Red Cell Distribution Width 13.2 % (11.5-14.5); White Blood Count 3.9 K/mm3 (4.5-10.0)
[2022-11-05 08:42] LABS: Alanine Aminotransferase 24 U/L (6-35); Albumin Level 4.3 g/dL (3.5-5.1); Alkaline Phosphatase 84 U/L (38-126); Anion Gap 3 mmol/L (8-16); Aspartate Amino Transferase 29 U/L (14-36); Bilirubin,Total 0.6 mg/dL (0.2-1.3); Blood Urea Nitrogen 19 mg/dL (7-17); Calcium 8.9 mg/dL (8.4-10.2); Carbon Dioxide 31 mmol/L (22-30); Chloride 105 mmol/L (98-107); Estimated Glomerular Filt Rate > 60; Glucose 154 mg/dL (65-110); Potassium 4.2 mmol/L (3.4-5.0); Sodium 139 mmol/L (137-145)
[2022-11-05 09:31] LABS: Hemoglobin A1C 6.3 % (<5.7)
== END 2022-11-05 07:12 | disposition home or self-care (01) ==
PROVIDERS: PCP Physician Assistant; Visit Provider Physician Assistant
DX: E11.9 Type 2 diabetes mellitus without complications (principal); Z79.899 Other long term (current) drug therapy
CPT/HCPCS: 36415; 80053; 83036; 85025

== ENCOUNTER 2023-03-17 09:05 | Outpatient (CLI) | payer OTHER, SELFPAY ==
--- NOTE | ~2023-03-17 | MM_ITS ---
EXAMINATION: MM screening thuy BI w gina HISTORY: Screening mammogram, family history of breast cancer in her mother and sister. TECHNIQUE: Craniocaudal and mediolateral oblique 3-D tomosynthesis images were obtained and synthetic 2-D images were generated. CAD analysis was submitted and interpreted. COMPARISON: 12/16/2021, 11/13/2020, 11/12/2019 BREAST PARENCHYMAL COMPOSITION: The breasts are almost entirely fatty. FINDINGS: Again noted is a stable benign mass in the posterior third of the outer left breast. No shreyas picious mass, calcification, or architectural distortion are identified in either breast to suggest m alignancy. There has been no suspicious interval change. IMPRESSION: 1. No mammographic evidence of malignancy. 2. Recommend routine screening mammography in one year. BI-RADS Category 2: Benign finding(s). Reviewed, dictated and finalized at location B.
== END 2023-03-17 09:06 | disposition home or self-care (01) ==
LOC: ANHIMG 09:07
PROVIDERS: PCP Physician Assistant; Visit Provider Nurse Practitioner Obstetrics & Gynecology
DX: Z12.31 Encounter for screening mammogram for malignant neoplasm of breast (principal)
CPT/HCPCS: 77063; 77067

== ENCOUNTER 2023-05-20 07:31 | Outpatient (CLI) | payer OTHER, SELFPAY ==
[2023-05-20 08:14] LABS: Basophils Percent Auto 0.7 % (0.2-1.2); Eosinophils Absolute Auto 0.3 K/mm3 (0-0.3); Eosinophils Percent Auto 6.6 % (0-4.4); Hematocrit 40.6 % (37.0-47.0); Hemoglobin 13.7 g/dL (12.0-15.0); Immature Granulocyte Absolute 0.01 K/mm3 (0.00-0.031); Immature Granulocyte Percent A 0.2 % (0-0.5); Lymphocytes Absolute Auto 1.44 K/mm3 (0.9-3.2); Lymphocytes Percent Auto 31.8 % (18.3-44.2); Mean Corpuscular HGB Conc 33.7 g/dl (32-36); Mean Corpuscular Hemoglobin 31.4 pg (26-34); Mean Corpuscular Volume 92.9 fl (80-100); Monocytes Absolute Auto 0.3 K/mm3 (0.1-0.6); Monocytes Percent Auto 7.3 % (2.6-8.5); Neutrophils Absolute Auto 2.4 K/mm3 (1.3-6.7); Neutrophils Percent Auto 53.4 % (45.5-73.1); Platelet Count Result 193 k/mm3 (150-375); Red Blood Count 4.37 M/mm3 (4.2-5.4); Red Cell Distribution Width 12.7 % (11.5-14.5); White Blood Count 4.5 K/mm3 (4.5-10.0)
[2023-05-20 08:28] LABS: Alanine Aminotransferase 24 U/L (6-35); Albumin Level 4.1 g/dL (3.5-5.1); Alkaline Phosphatase 77 U/L (38-126); Anion Gap 3 mmol/L (8-16); Aspartate Amino Transferase 27 U/L (14-36); Bilirubin,Total 0.6 mg/dL (0.2-1.3); Blood Urea Nitrogen 19 mg/dL (7-17); Calcium 9.1 mg/dL (8.4-10.2); Carbon Dioxide 27 mmol/L (22-30); Chloride 108 mmol/L (98-107); Cholesterol 197 mg/dL (0-200); Estimated Glomerular Filt Rate > 60; Glucose 145 mg/dL (65-110); HDL Direct 101 mg/dL; Potassium 3.7 mmol/L (3.4-5.0); Sodium 138 mmol/L (137-145); Triglycerides 63 mg/dL (<150)
[2023-05-20 08:39] LABS: Hemoglobin A1C 6.2 % (<5.7); LDL Cholesterol Direct 74 mg/dL
[2023-05-20 08:57] LABS: Thyroid Stimulating Hormone 0.642 uIU/mL (0.465-4.680)
[2023-05-20 09:07] LABS: Creatinine Urine 87.5 mg/dL
[2023-05-20 09:13] LABS: MALB Creatinine Ratio < 6.9 mg/g (0-30); Microalbumin Urine Random < 6.0 mg/L (0-16.7)
[2023-05-20 09:38] LABS: Folic Acid > 20.0 ng/mL (2.76->20)
== END 2023-05-20 07:32 | disposition home or self-care (01) ==
PROVIDERS: Dermatology; PCP Physician Assistant; Visit Provider Physician Assistant
DX: R53.83 Other fatigue (principal); E11.9 Type 2 diabetes mellitus without complications
CPT/HCPCS: 36415; 80053; 80061; 82043; 82607; 82746; 83036; 84443; 85025

== ENCOUNTER 2023-12-07 09:02 | Outpatient (CLI) | payer OTHER, SELFPAY ==
[2023-12-07 09:45] LABS: Alanine Aminotransferase 20 U/L (6-35); Alkaline Phosphatase 91 U/L (38-126); Anion Gap 3 mmol/L (4-12); Aspartate Amino Transferase 24 U/L (14-36); Bilirubin,Total 0.5 mg/dL (0.2-1.3); Blood Urea Nitrogen 18 mg/dL (7-17); Calcium 8.9 mg/dL (8.4-10.2); Carbon Dioxide 25 mmol/L (22-30); Chloride 112 mmol/L (98-107); Estimated Glomerular Filt Rate > 60; Glucose 141 mg/dL (65-110); Hemoglobin A1C 6.5 % (<5.7); Sodium 140 mmol/L (137-145)
== END 2023-12-07 09:03 | disposition home or self-care (01) ==
LOC: ANHLAB 09:03
PROVIDERS: PCP Internal Medicine; Visit Provider Physician Assistant
DX: E11.9 Type 2 diabetes mellitus without complications (principal)
CPT/HCPCS: 36415; 80053; 83036

== ENCOUNTER 2024-03-19 08:03 | Outpatient (CLI) | payer OTHER, SELFPAY ==
--- NOTE | ~2024-03-19 | MM_ITS ---
EXAMINATION: MM screening thuy BI w gina HISTORY: Screening TECHNIQUE: Craniocaudal and mediolateral oblique 3-D tomosynthesis images were obtained and synthetic 2-D images were generated. CAD analysis was submitted and interpreted. COMPARISON: Comparison to multiple prior studies sequentially, with oldest reviewed study dated 08/28. BREAST PARENCHYMAL COMPOSITION: Not Dense. The breasts are almost entirely fatty. FINDINGS: There is no evidence of suspicious mass, calcification, or architectural distortion to sugg est malignancy in either breast. There has been no suspicious interval change. IMPRESSION: 1. No mammographic evidence of malignancy. 2. Recommend routine screening mammography in one year. BI-RADS Category 1: Negative Reviewed, dictated and finalized at location B.
== END 2024-03-19 08:04 | disposition home or self-care (01) ==
LOC: ANHIMG 08:05
PROVIDERS: PCP Internal Medicine; Visit Provider Obstetrics & Gynecology
DX: Z12.31 Encounter for screening mammogram for malignant neoplasm of breast (principal)
CPT/HCPCS: 77063; 77067

== ENCOUNTER 2024-06-27 11:39 | Outpatient (CLI) | payer OTHER, SELFPAY ==
[2024-06-27 12:05] LABS: Basophils Percent Auto 0.5 % (0.2-1.2); Eosinophils Absolute Auto 0.3 K/mm3 (0-0.3); Eosinophils Percent Auto 4.3 % (0-4.4); Hematocrit 40.4 % (37.0-47.0); Hemoglobin 13.5 g/dL (12.0-15.0); Immature Granulocyte Absolute 0.01 K/mm3 (0.00-0.031); Immature Granulocyte Percent A 0.2 % (0-0.5); Lymphocytes Absolute Auto 2.21 K/mm3 (0.9-3.2); Lymphocytes Percent Auto 38.2 % (18.3-44.2); Mean Corpuscular HGB Conc 33.4 g/dl (32-36); Mean Corpuscular Hemoglobin 31.3 pg (26-34); Mean Corpuscular Volume 93.7 fl (80-100); Mean Platelet Volume 10.1 fl (7.4-10.4); Monocytes Absolute Auto 0.4 K/mm3 (0.1-0.6); Monocytes Percent Auto 7.4 % (2.6-8.5); Neutrophils Absolute Auto 2.9 K/mm3 (1.3-6.7); Neutrophils Percent Auto 49.4 % (45.5-73.1); Platelet Count Result 203 k/mm3 (150-375); Red Blood Count 4.31 M/mm3 (4.2-5.4); White Blood Count 5.8 K/mm3 (4.5-10.0)
[2024-06-27 12:23] LABS: Alanine Aminotransferase 23 U/L (6-35); Albumin Level 4.5 g/dL (3.5-5.1); Alkaline Phosphatase 73 U/L (38-126); Anion Gap 6 mmol/L (4-12); Aspartate Amino Transferase 28 U/L (14-36); Bilirubin,Total 0.6 mg/dL (0.2-1.3); Blood Urea Nitrogen 24 mg/dL (7-17); Calcium 9.4 mg/dL (8.4-10.2); Carbon Dioxide 24 mmol/L (22-30); Chloride 110 mmol/L (98-107); Cholesterol 189 mg/dL (0-200); Estimated Glomerular Filt Rate > 60; Glucose 127 mg/dL (65-110); Potassium 3.8 mmol/L (3.4-5.0); Sodium 140 mmol/L (137-145); Triglycerides 81 mg/dL (<150)
[2024-06-27 12:25] LABS: HDL Direct 107 mg/dL
[2024-06-27 12:27] LABS: LDL Cholesterol Direct 57 mg/dL
[2024-06-27 12:43] LABS: Creatinine Urine 182.9 mg/dL
[2024-06-27 12:43] LABS: Hemoglobin A1C 6.6 % (<5.7)
[2024-06-27 12:47] LABS: Thyroid Stimulating Hormone 0.808 uIU/mL (0.465-4.680)
[2024-06-27 12:47] LABS: MALB Creatinine Ratio 12.2 mg/g (0-30); Microalbumin Urine Random 22.3 mg/L (0-16.7)
[2024-06-27 13:05] LABS: Vitamin D 25 Hydroxy 43.4 ng/mL
== END 2024-06-27 11:40 | disposition home or self-care (01) ==
LOC: ANHLAB 11:41
PROVIDERS: PCP Internal Medicine; Visit Provider Internal Medicine
DX: E78.5 Hyperlipidemia, unspecified (principal); E55.9 Vitamin D deficiency, unspecified; E11.9 Type 2 diabetes mellitus without complications; R53.83 Other fatigue; Z13.29 Encounter for screening for other suspected endocrine disorder
CPT/HCPCS: 36415; 80053; 80061; 82043; 82306; 83036; 84443; 85025

== ENCOUNTER 2024-12-19 13:50 | Outpatient (CLI) | payer OTHER, SELFPAY ==
--- OUTSIDE RECORDS SUMMARY | 2024-12-19 14:32 | XMS_ITS | Encounter Summary ---
Author Organization [facility] Health Address [address] [place] [address] Care Team Providers Care Water Project Manager Name Role Phone Kayode Brizuela MD Unavailable [phone] Jacques Holguin DO Primary Care Provider [phone] Reason for Visit * Reason Onset Date Comments Appointment 11/18/2024 Encounter Details Date Type Department Care Team (Late st Contact Info) Description 11/18/2024 Telephone [facility] - Dermatology [address] [place] [address], [place] [address] Floridalma Gonzalez MD [facility] [place] [address] Appointment Social History Tobacco Use Types Packs/Day Years Used Date Smoking Tobacco: Never Smokeless Tobacco: Never Alcohol Use Standard Drinks/Week Comments Never 0 (1 standard drink = 0.6 oz pur e alcohol) AUDIT-C Answer Date Recorded Q1: How often do you have a drink containing alc ohol? 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 Pt would like to be seen sooner. Pt can be reached at * Telephone Encounter - Nii Perry - 11/18/2024 11:27 AM CDT Pt is requesting to scheduled sooner visit with provider. CB# [phone] documented in this encounter Plan of Treatment Upcoming Encounters Date Type Department Care Team (Late st Contact Info) Description 03/03/2025 11:30 AM CDT Office Visit [facility] - Dermatology [address] [place] [phone] Floridalma Gonzalez MD [address] [place] [address] [place] [address] 06/02/2025 10:00 AM KLYSTROM TUBE TESTER Office Visit [facility] Derm[facility]ology [address] [place] [phone] Floridalma Gonzalez MD [address] [place] [address] [place] [address] documented as of this encounter Visit Diagnoses Not on filedocumented in this encounter Care Teams Water Project Manager Relationship Specialty Start Date End Date Jacques Holguin DO [address] [place], [place] [phone] PCP - General Internal Medicine 06/03/24 Kayode Brizuela MD [address] [facility] [place] [address] Collaborating Physician Dermatology 09/12/19 documented as of this encounter
--- OUTSIDE RECORDS SUMMARY | 2024-12-19 14:32 | XMS_ITS | Clinical Summary ---
Author Organization [facility] Address [address] [place] [address] Care Team Providers Care Director Of Human Resources Name Role Phone Kayode Brizuela MD Unavailable [phone] Jacques Holguin DO Primary Care Provider [phone] Source Comments [facility],non-owned Affiliates and Associated Physician Practices is amultiple site organization consisting of ambulatory clinics and hospital sitesin [place], [place], [place] and [place]. This disclosure is being madepursuant to the Care Everywhere program and may not contain all information available regarding this patient. Last updated 18.[facility] Allergies No known active allergies Medications * Be aware that medications may not be up to date on this document. Alwaysverify current medications with the patient. metFORMIN (GLUCOPHAGE) 500 MG tablet Take 1 (one) tablet by mouth 2 times daily with morning and evening meal 9 Active aspirin (ASPIRIN) 81 MG tablet Take 1 (one) tablet by mouth once daily Active Calcium Polycarbophil (FIBER-CAPS PO) Take 1 capsule by mouth once daily Active Multiple Vitamin (MULTI-VITAMIN DAILY PO) Take 1 tablet by mouth once daily Active Calcium Carb-Cholecalcife rol (CALCIUM 1000 + D PO) Take 1 capsule by mouth once daily Active hydrocortisone (HYTONE) 2.5 % creamIndications: Rash and other nonspecific skin eruption Apply to rash on face twice daily. 30 days supply. 30 g 0 Active prednisoLONE acetate (PRED FORTE) 1 % ophthalmic suspension Instill 1 drop into left eye once daily 0 Active acyclovir (ZOVIRAX) 400 MG tablet Take 400 mg by mouth 3 times daily 2 Active ibuprofen (ADVIL) 200 MG capsule ibuprofen 200 mg capsule take 1 capsule by oral route every 6 hours as needed Active Vitamins-Lipotrop ics (SUPER B-50 COMPLEX PLUS PO) Super B-50 Complex Active valACYclovir (Valtrex) 1 GM tablet Take 2 (two) tablets by mouth every 12 hours 3 Active triamcinolone acetonide (Kenalog) 0.1 % creamIndications: Dermatomyositis (HCC) Apply to affected area on body BID PRN. 30 day supply. 80 g 5 4 Active azaTHIOprine (Imuran) 50 MG tabletIndications :Dermatomyositis (HCC) Take 1 (one) tablet by mouth 2 times daily 60 tablet 5 Active clobetasol (Temovate) 0.05 % solutionIndicatio ns:Dermatomyositi s (HCC) Apply to the scalp nightly. 30 days supply. Put on at night and wash your hair in the morning (on the scalp for 6-8 hours) 50 mL 3 5 Active predniSONE (Deltasone) 10 MG tabletIndications :Dermatomyositis (HCC) Take 4 (four) tablets by mouth once daily for 7 days, THEN 3 (three) tablets once daily for 7 days, THEN 2 (two) tablets once daily for 7 days, THEN 1 (one) tablet once daily for 7 days, THEN 0.5 (one-half) tablet once daily for 7 days, THEN 0.5 (one-half) tablet every 2 days for 7 days. 75 tablet 5 025 Active predniSONE (DELTASONE) 5 MG tabletIndications :Dermatomyositis (HCC) Take 1 tablet by mouth once daily 30 tablet 1 0 025 Discontin ued(List Clean-Up) azaTHIOprine (IMURAN) 50 MG tabletIndications :Dermatomyositis (HCC) Decrease to 75/50 mg for 3 months and if you are still clear then decrease to 50/50 mg for 3 months 120 tablet 2 2 025 Discontin ued(List Clean-Up) clobetasol (Temovate) 0.05 % solutionIndicatio ns:Dermatomyositi s (HCC) Apply to affected area on scalp BID PRN. 30 day supply. 50 mL 3 025 Discontin ued(List Clean-Up) Active Problems Problem Noted Date Diagnosed Date Dermatomyositis 12/11/2019 Assessment & Plan (12/28/2020 11:11 AM CDT): - Significantly improved from onset, persistent pink scaly patches to chest, back, arms, face - Continue Imuran 100 mg BID, if WBC stable/improved at next draw consider increasing to 125 mg BID - Continue clobetasol solution up to BID PRN to scalp - Switch TAC ointment to cream to use up to BID PRN on body - Continue HC 2.5% cream to face up to BID PRN Assessment & Plan (09/16/2020 5:24 PM RAILWAY HEAD TENDER): Status: better controlled, still active -Increase azathioprine to 150 mg BID - Clobetasol solution to scalp BID PRN for itch - TAC PRN to body for itch - Hydrocortisone 2.5% cream BID to face - Will ask rheum if he has any guidance on adding other medications Hair loss 12/11/2019 Rash and other nonspecific skin eruption 020 Medication monitoring encounter 09/12/2019 Assessment & Plan (12/28/2020 11:11 AM CDT): - Leukopenia to 2.5 on Imuran 150 mg BID, improved to 3.6 with decrease in dose - Continue lower dose of Imuran as above - Repeat CBC, CMP in 2 weeks - printed lab orders given to patient today Assessment & Plan (09/16/2020 4:19 PM RAILWAY HEAD TENDER): - CBC, CMP Q2w ORDERED; provided paper orders Encounters Date Type Department Care Team Description 12/18/2024 2:00 PM CDT Office Visit [facility] - Dermatology [address] [place] [address], [place] [phone] Floridalma Gonzalez MD Dermatomyositis (HCC) (Primary Dx); High risk medication use; Melanocytic nevi of trunk; Solar lentiginosis; Xerosis cutis; Medication monitoring encounter 12/18/2024 Travel 11/18/2024 Telephone [facility] Dermatology [address] [place] [address] Floridalma Gonzalez MD Appointment from Last 3 Months Immunizations Immunization Administration Dates Next Due INFLUENZA VACCINE 05/02/2022,05/05/2021,05/06/20,05/11/2019 Family History Medical History Relation Name Comments None Known Brother None Known Father Cancer - Breast Maternal Aunt None Known Maternal Grandfather None Known Maternal Grandmother None Known Maternal Uncle Cancer - Breast Mother None Known Other None Known Paternal Aunt None Known Paternal Grandfather None Known Paternal Grandmother None Known Paternal Uncle Cancer - Breast Sister Asthma Neg Hx CVA Neg Hx Cancer - Other Neg Hx Cancer - Skin, Melanoma Neg Hx Cancer - Skin, Non Melanoma Neg Hx Eczema Neg Hx Hemophilia Neg Hx Psoriasis Neg Hx Relation Name Status Comments Brother Father Maternal Aunt Maternal Grandfather Maternal Grandmother Maternal Uncle Mother Other Paternal Aunt Paternal Grandfather Paternal Grandmother Paternal Uncle Sister Social History Tobacco Use Types Packs/Day Years Used Date Smoking Tobacco: Never Smokeless Tobacco: Never Tobacco Cessation:Counseling Given: Not Answered Alcohol Use Standard Drinks/Week Comments Never 0 [...] on file Legal Sex Female 6:12 AM RAILWAY HEAD TENDER Gender Identity Not on file Sexual Orientation Not on file Last Filed Vital Signs Vital Sign Reading Time Taken Comments Blood Pressure 125/73 12/31/2020 10:02 AM CDT Pulse 76 12/31/2020 10:02 AM CDT Temperature 37.1 C (98.8 F) 12/31/2020 10:02 AM CDT Respiratory Rate - - Oxygen Saturation 96% 12/31/2020 10:02 AM CDT Inhaled Oxygen Concentration - - Weight 88.5 kg (195 lb) 12/31/2020 10:02 AM CDT Height 160 cm (5' 3) 12/31/2020 10:02 AM CDT Body Mass Index 34.54 12/31/2020 10:02 AM CDT Plan of Treatment Upcoming Encounters Date Type Department Care Team (Late st Contact Info) Description 03/03/2025 11:30 AM CDT Office Visit [facility] - Dermatology [address] [place] [phone] Floridalma Gonzalez MD [address] [place] [address] [place] [phone] 06/02/2025 10:00 AM RAILWAY HEAD TENDER Office Visit [facility] Dermatology [address] [place] [phone] Floridalma Gonzalez MD [address] [place] [address] [place] [phone] Health Maintenance Due Date Last Done Comments COLOGUARD (AGES 45-75) - COLON CA SCREENING 1961 COLON MONITORING 1961 COLONOSCOPY - COLON CA SCREENING 1961 CT COLONOGRAPHY - COLON CA SCREENING 1961 Colorectal Cancer Screening 1961 FIT - COLON CA SCREENING 1961 FLEX SIG - COLON CA SCREENING 1961 LIPID TESTING 1961 COVID-19 VACCINE (#1) 1966 HIV SCREENING 02/28/1976 HEPATITIS C SCREENING 02/23/1979 DTAP/TDAP/TD VACCINES (1 - Tdap) 02/28/1980 PNEUMOCOCCAL VACCINE 50+ (1 of 2 - PCV) 02/28/1980 ZOSTER VACCINE (1 of 2) 02/28/1980 Respiratory Syncytial Virus (RSV) Vaccine Pt: or over 60 yrs (1 - Risk 60-74 years 1-dose series) 2021 MAMMOGRAM 12/31/2022 12/31/2020 DEPRESSION SCREENING 07/17/2024 PAP SMEAR 09/28/2024 09/28/2021, 09/14, 09/24/2020, Additional history exists INFLUENZA VACCINE (Season Ended) 2025 05/02/2022, 05/05/2021, 05/06/2020, Additional history exists HEPATITIS B VACCINE Aged Out No longe r eligible based on patient's age to complete this topic HIB VACCINE Aged Out No longer eligi ble based on patient's age to complete this topic HPV VACCINE Aged Out No longer eligi ble based on patient's age to complete this topic MENINGOCOCCAL (Group B) VACCINE SHARED DECISION-MAKING Aged Out No longer eligible based on patient's age to complete this topic MENINGOCOCCAL GROUPS A/C/Y/W VACCINE Aged Out No longer eligible based on patient's age to complete this topic Procedures Procedure Name Priority Date/Time Associated Diagnosis Comments MM OUTSIDE MAMMOGRAM Routine 12/31/2020 11:03 AM CDT Lump or mass in breast from Last 3 Months or Most Recently Relevant to Health Maintenance Results * MM OUTSIDE MAMMO FILM READ (12/31/2020 11:03 AM CDT) Anatomical Region Laterality Modality Other 01/07/2021 8:03 AM CDT Impressions 01/07/2021 8:24 AM CDT IMPRESSION: No mammographic evidence of malignancy. No change from the prior. RECOMMENDATION: Return to annual screening intervals, pending no interval breast concerns. BI-RADS CATEGORY 2: BENIGN. This report was electronically signed by DANTE MEIER on 01/07/2021 8:24 AM . Narrative 01/07/2021 8:24 AM CDT EXAMINATION: RADIOLOGY CONSULTATION ON OUTSIDE IMAGING STUDY (Bilateral Digital Screening Mammography with Tomosynthesis, but without CAD, 11/13/2020) STUDY INITIALLY PERFORMED ON [11/13/2020] AT [[place], [place]]. The outside final report was provided at the time of this second opinion. DATE OF CONSULTATION: 01/06/2021 REASON FOR CONSULTATION: Left breast mass COMPARISON: Bilateral digital mammograms dated 11/12/2019 and 10/09/2018-[facility] The findings, conclusions and recommendations within this report do not replace the initial findings, conclusions and recommendations made at the facility where the study was performed based upon the imaging and clinical condition at that time. Comparison with the prior report and clinical history is necessary. The provided images may or may not represent the kake source data set and thus may contain changes which may lower the sensitivity in the second opinion interpretation. FINDINGS: BREAST COMPOSITION: Category A: Breasts are almost entirely fatty. FINDINGS: The 12 x 5 mm oval equal density focal asymmetry in the lower outer quadrant posterior depth of left breast, 11.5 cm deep to the nipple, is stable since the 2019 examination and is benign. This has been reported as an asymmetry in the 2019 examination and as a mass in 2020 examination, but is visible in all 3 studies without changes. No suspicious microcalcifications, focal dominant masses, or areas of architectural distortion are evident on mammography. No significant change from the prior. Procedure Note Dante Meier MD - 01/07/2021 EXAMINATION: RADIOLOGY CONSULTATION ON OUTSIDE IMAGING STUDY (Bilateral Digital Screening Mammography with Tomosynthesis, but without CAD, 11/13/2020) STUDY INITIALLY PERFORMED ON [11/13/2020] AT [[place], [place] The outside final report was provided at the time of this secondopinion. DATE OF CONSULTATION: 01/06/2021 REASON FOR CONSULTATION: Left breast mass COMPARISON: Bilateral digital mammograms dated 11/12/2019 and 10/09/2018-[facility] The findings, conclusions and recommendations within this report do not replace the initial findings, conclusions and recommendations made atthe facility where the study was performed based upon the imaging andclinical condition at that time. Comparison with the prior report and clinical history is necessary. The provided images may or may not represent the kake source data set and thus may contain changes which may lower the sensitivity in the second opinion interpretation. FINDINGS: BREAST COMPOSITION: Category A: Breasts are almost entirely fatty. FINDINGS: The 12 x 5 mm oval equal density focal asymmetry in the lower outer quadrant posterior depth of left breast, 11.5 cm deep to the nipple, is stable since the 2019 examination and is benign. This has been reportedas an asymmetry in the 2019 examination and as a mass in 2020 examination, but is visible in all 3 studies without changes. No suspicious microcalcifications, focal dominant masses, or areas of architectural distortion are evident on mammography. No significant change from the prior. IMPRESSION: No mammographic evidence of malignancy. No change from the prior. RECOMMENDATION: Return to annual screening intervals, pending nointerval breast concerns. BI-RADS CATEGORY 2: BENIGN. This report was electronically signed by DANTE MEIER on 01/07/2021 8:24 AM . Ladi Ralph MD IMAGING Final Resul t from Last 3 Months or Most Recently Relevant to Health Maintenance Insurance Care Teams Director Of Human Resources Relationship Specialty Start Date End Date Jacques Holguin DO [address] [place] [address] PCP - General Internal Medicine 06/03/24 Kayode Brizuela MD [address] [facility] [address] Collaborating Physician Dermatology 09/12/19
--- OUTSIDE RECORDS SUMMARY | 2024-12-19 14:32 | XMS_ITS | Encounter Summary ---
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 Gender Identity Not on file Sexual Orientation Not on file documented as of this encounter Plan of Treatment Upcoming Encounters Date Type Department Care Team (Late st Contact Info) Description 03/03/2025 11:30 AM CDT Office Visit [facility] - Dermatology [address] [place] [address], [facility] [place] [id number] Floridalma Gonzalez MD [address] [place] [address] [address] [place] [phone] 06/02/2025 10:00 AM BINDERY MACHINE SETTER Office Visit [facility] - Dermatology [address] [facility] [place] [phone] Floridalma Gonzalez MD [facility] [address] [place] [phone] documented as of this encounter Visit Diagnoses Not on filedocumented in this encounter Care Teams Through Operator Relationship Specialty Start Date End Date Jacques Holguin DO [address] [place], [place] [id number] PCP - General Internal Medicine 06/03/24 Kayode Brizuela MD [address] [place] [address] Collaborating Physician Dermatology 09/12/19 documented as of this encounter
--- OUTSIDE RECORDS SUMMARY | 2024-12-19 14:32 | XMS_ITS | Data Portability ---
Author Organization [facility] [place] Address [address] [place] [place] [address] [place] [address] Care Team Providers Care Siene Maker Name Role Phone [facility] Primary Care Provider Assessment Encounter Date Assessment Date Assessment LastModified by Organization Details LastModified Time 01/06/2023 01/06/2023 Annual gynecological exam performed. Patient will come back in a year unless there are new symptoms. [email or web address] Not available 01/06/2023 09:32:34 02/20/2024 02/20/2024 Annual gynecological exam performed. Patient will come back in a year unless there are new symptoms. [email or web address] Not available 02/20/2024 09:32:23 Plan of Treatment Reminders Order Date Submit Date Provider Last Modified By Organization Details Last Modified Time Details Appointments None recorded. Lab None recorded. Referral None recorded. Procedures None recorded. Surgeries None recorded. Imaging MAMMO, screening, digital, bilateral 2023 024 [facility], [address], [place], [address], 4 09:35:57 US, pelvis 2022 023 [email or web address] [place], [address], [address], [place], [address], 3 22:05:56 US, transvagina l [address] [facility], [address], [place], [address], 3 05:01:08 MAMMO, screening, bilateral [email or web address] [place] [address] Ctr, [address], [place], [address], 4 15:15:27 US, pelvis, complete [email or web address] [place] [address] Ctr, [address], [place], [address], 4 15:57:06 US, pelvis [email or web address] [facility] [address], [place], [address], 2 19:20:42 US, transvagina l 2021 [address]22 [address], [address], [place], [address], 2 19:20:42 Medication Orders None recorded. Patient TargetsNo targets recorded. Patient InstructionsNo instructions recorded. Reason for Referral None Reported. Results Created Date Observation Date Name Description Value Unit Range Abnormal Flag Note LastModifiedBy Organization Detail LastModifiedTime 11/02/19 22 11/01/2021 US, pelvi s No observ ation record ed. [email or web address] [place] [address], [place], [address], 11/01/2021 13:17:45 11/02/19 22 11/01/2021 US, trans vagin al No observ ation record ed. [email or web address] [place] [address], [place], [address], 11/01/2021 13:17:56 11/02/19 22 11/01/2021 US, pelvi s No observ ation record ed. LINA Kamryn [address], [place], [address], 11/15/2021 09:55:55 12/31/19 MAMMO , scree damon, bilat eral No observ ation record ed. [facility] [address], [place], [address], 01/23/2022 19:16:31 01/11/20 23 01/10/2023 US, pelvi s No observ ation record ed. [email or web address] [place] [address], [place], [address], 01/10/2023 10:51:45 01/11/20 23 01/10/2023 US, trans vagin al No observ ation record ed. [facility] [address], [place], [address], 01/24/2023 16:25:32 01/11/20 23 01/10/2023 US, pelvi s No observ ation record ed. [facility] [address], [place], [address], 01/24/2023 16:24:11 03/19/20 24 03/19/2024 MAMMO , scree damon, digit al, bilat eral No observ ation record ed. [facility] [address], [place], [address], 03/19/2024 20:58:54 Result Notes None recorded. Problems Name Problem SNOMED Code Status Onset Date Resolution Date Notes Provider Name and Address Organization Details Recorded Time Screenin g for malignan t neoplasm of rectum Completed 201009/04/2021 Screenin g for malignan t neoplasm s of the rectum;R ecorded Elsewher e: No Locat ion: [facility] S ource: EHR Bridge Crew Member francisco: N Practi ce ID: [id number] Vicente lable Time: 08:30:00 AM Dana Tejada [facility] [place] - [facility] 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 2 12:49:[address] Concept Completed 201709/04/2021 Encntr for general adult medical exam w/o abnormal findings ;Recorde d Elsewher e: No [facility] S ource: EHR Bridge Crew Member francisco: N Practi ce ID: 0001 Vicente lable Time: 09:30:00 AM Dana crespo [facility] 2 12:49:52 Glycosur ia [id number] Completed 201909/04/2021 Glycosur ia;Recor ded Elsewher e: No [facility] S ource: EHR Bridge Crew Member francisco: N Practi ce ID: 0001 Vicente lable Time: 08:15:00 AM Dana crespo [facility] 2 12:49:04 Adult health examinat ion Completed 201009/04/2021 Routine Medical Exam;Rec orded Elsewher e: No Locat ion: Kendrick dara [facility] S ource: EHR Bridge Crew Member francisco: N Practi ce ID: 0001 Vicente lable Time: 08:30:00 AM Dana Tejada [facility] 2 12:48:57 Vaginal vault smear result - finding [id number] Completed 201709/04/2021 Other abnormal cytologi pau findings on specimen s from vagina;R ecorded Elsewher e: No [facility] S ource: EHR Bridge Crew Member francisco: N Practi ce ID: 0001 Vicente lable Time: 01:45:00 PM Dana Tejada zak [facility] 2 12:49:58 Microsco pic hematuri a [id number] Completed 201209/04/2021 MICROSCO PIC HEMATURI A;Record ed Elsewher e: No Locat ion: [facility] S ource: EHR Bridge Crew Member francisco: N Practi ce ID: 0001 Vicente lable Time: 08:15:00 AM Dana crespo, [facility] 2 12:49:41 Evaluati on finding Completed 201709/04/2021 Hematuri a, unspecif ied;Jose rded Elsewher e: No Locat ion: [facility] S ource: EHR Bridge Crew Member francisco: N Violettati ce ID: 0001 Vicente lable Time: 09:30:00 AM [facility] 2 12:49:00 Speciali zed medical examinat ion Completed 201009/04/2021 Gynecolo gical Examinat ion;Jose rded Elsewher e: No Locat ion: [facility] S ource: EHR Bridge Crew Member francisco: N Practi ce ID: 0001 Vicente lable Time: 08:30:00 AM Dana crespo [facility] 2 12:49:56 Low grade squamous intraepi thelial lesion on cervical Papanico laou smear [id number] 105 Completed 201809/04/2021 Low grade intrepit h lesion cyto smr crvx (LGSIL); Recorded Elsewher e: No Locat ion: [facility] S ource: EHR Bridge Crew Member francisco: N Practi ce ID: 0001 Vicente lable Time: 08:15:00 AM Dana crespo [facility] 2 12:49:39 Evaluati on finding Completed 201709/04/2021 Unsp abnormal cytolog findings in specmn from cervix uteri;Re corded Elsewher e: No Locat ion: [facility] S ource: EHR Bridge Crew Member francisco: N Violettati ce ID: 0001 Vicente lable Time: 12:45:31 PM Dana crespo [facility] 2 12:49:02 Screenin g for malignan t neoplasm of cervix Completed 201009/04/2021 Screenin g for malignan t neoplasm s of the cervix;R ecorded Elsewher e: No Locat ion: [facility] S ource: EHR Bridge Crew Member francisco: N Violettati ce ID: 0001 Vicente lable Time: 08:30:00 AM Dana crespo [facility] [address] 12:49:[address] Concept Completed 201709/04/2021 Encounte r for general adult medical exam w abnormal findings ;Practic e ID: [id number] Dana Tejada [facility] 2 12:49:44 Problem Notes None recorded. Procedures Surgical History Date Name Laterality Status Provider Name and Address Organization Details Recorded Time 12/31/19 22 Date of Last Mammogram completed Judy Matamoros [facility] 01/06/2023 09:33:50 09/29/19 22 Date of Last Pap Smear completed Deanna Henderson [facility] 11/01/2021 12:26:27 04/16/20 19 Xcapsl ctrc rmvl cplx wo ecp completed Danaisidro Tejada [facility] 09/04/2021 12:53:23 09/11/19 18 Colposcopy completed Dana Tejada [facility] 09/03/2021 18:16:46 07/17/19 10 Partial Hysterectomy completed Danaisidro Tejada [facility] 09/04/2021 12:53:27 07/17/18 68 open reduction maxillary fracture completed Danaisidro Tejada [facility] 09/04/2021 12:54:04 Colposcopy completed [facility] 09/28/2021 13:11:49 Partial Hysterectomy completed [facility] 09/28/2021 13:11:49 Imaging Results None recorded. Procedure Notes None recorded. Medical Equipment None Reported. Allergies No known drug allergies Medications Name Sig Start Date Stop Date Status Note LastModified by Organization Details LastModified Time metformin 500 mg tablet take 1 tablet by oral route 2 times every day with morning and evening meals active Not Available Not Available No t Available cefuroxim e axetil 250 mg tablet TAKE 1 TABLET BY MOUTH EVERY 12 HOURS 01/06 completed Not Available Not Available Not Available valacyclo vir 1 gram tablet TAKE 2 TABLETS BY MOUTH EVERY 12 HOURS 01/06 completed Not Available Not Available Not Available hydrocodo ne 5 mg-acetam inophen 325 mg tablet TAKE 1 TABLET BY MOUTH EVERY 4 - 6 HOURS NEEDED FOR PAIN 09/28 completed Not Available Not Available Not Available ibuprofen 200 mg capsule take 1 capsule by oral route every 6 hours as needed 01/06 completed Prescrib ed Elsewher e: Yes Loca tion: [facility] odify By: rahul bills DateTime : 05/24/20 12 08:30:00 AM Not Available Not Available Not Available prednison e 5 mg tablet take 1 tablet by oral route every day 09/24 completed Prescrib ed Elsewher e: Yes Loca tion: [facility] odify By: mona reza DateTime : 09/16/19 08:15:00 AM Not Available Not Available Not Available folic acid 20 mg capsule 09/24 completed Prescrib ed Elsewher e: Yes [facility] By: mona cunninghamuntgi DateTime : 09/16/19 08:15:00 AM Not Available Not Available Not Available Alexis Low Dose Aspirin 81 mg tablet,de layed release take 1 tablet by oral route every day 09/24 completed Prescrib ed Elsewher e: Yes [facility] By: rahul bills DateTime : 05/24/20 12 08:30:00 AM Not Available Not Available Not Available azathiopr ine 50 mg tablet TAKE 3 TABLETS BY MOUTH DAILY 01/06 completed Not Available Not Available Not Available acyclovir 400 mg tablet TAKE 1 TABLET BY MOUTH THREE TIMES DAILY 02/19 completed Not Available Not Available Not Available Vitamins B Complex capsule 09/15 completed Prescrib ed Elsewher e: Yes Loca tion: [facility] odify By: mona reza DateTime : 05/24/20 12 08:30:00 AM Not Available Not Available Not Available triamcino lone acetonide 0.1 % topical cream APPLY TOPICALL Y TO THE AFFECTED AREA ON BODY TWICE DAILY 09/28 completed Not Available Not Available Not Available FiberCon 625 mg tablet active Prescrib ed Elsewher e: Yes Loca tion: [facility] odify By: elisa Licona ntgi DateTime : 05/15/20 11 03:06:41 PM Not Available Not Available Not Available methotrex ate sodium 2.5 mg tablet take 1 tablet by oral route every week 09/24 completed Prescrib ed Elsewher e: Yes Loca tion: [facility] odify By: mona reza DateTime : 09/16/19 08:15:00 AM Not Available Not Available Not Available Flagyl 500 mg tablet take 1 tablet (500MG) by oral route 2 times every day 05/24 completed Prescrib ed Elsewher e: No Locat ion: [facility] odify By: rahul bills DateTime : 05/30/20 11 09:55:49 AM Not Available Not Available Not Available tobramyci n 0.3 % eye drops INSTILL 1 DROP IN EACH EYE EVERY 4 HOURS FOR 7 DAYS 01/06 completed Not Available Not Available Not Available hydroxych loroquine 200 mg tablet take 1 tablet by oral route every day 09/24 completed Prescrib ed Elsewher e: No Locat ion: Melizaeverardo dara [facility] odify By: mona reza DateTime : 09/16/19 08:15:00 AM Not Available Not Available Not Available Vitamin D2 1,250 mcg (50,000 unit) capsule take 1 capsule ([id number] ITS) by oral route every week 09/15 completed Prescrib ed Elsewher e: Yes Loca tion: [facility] odify By: mona reza DateTime : 05/24/20 12 08:30:00 AM Not Available Not Available Not Available multivita min capsule take 1 capsule by oral route every day 09/15 completed Prescrib ed Elsewher e: Yes Loca tion: [facility] odify By: mona cunninghamuntgi DateTime : 06/05/20 14 03:30:00 PM Not Available Not Available Not Available Stanback Headache Powder 650 mg oral packet 05/24 completed Prescrib ed Elsewher e: Yes Loca tion: [facility] odify By: rahul bills DateTime : 05/15/20 11 03:06:41 PM Not Available Not Available Not Available nitrofura ntoin monohydra te/macroc rystals 100 mg capsule TAKE 1 CAPSULE BY MOUTH EVERY 12 HOURS FOR 7 DAYS 09/04 completed Not Available Not Available Not Available calcium active Not Available Not Avail able Not Available azathiopr ine 09/04 completed Not Available Not Available Not Available Vitamin D3 active Not Available Not Available Not Available Alexis Aspirin active Not Available Not Available Not Available Super B-50 Complex active Not Available Not Available Not Available Xyzal 2.5 mg/5 mL oral solution take 10 millilit er by oral route every day in the evening 09/15 completed Prescrib ed Elsewher e: Yes Loca tion: [facility] odify By: mona cunninghamuntgi DateTime : 05/19/20 11 08:30:00 AM Not Available Not Available Not Available Dexilant 30 mg capsule, delayed release take 1 capsule by oral route every day 09/15 completed Prescrib ed Elsewher e: Yes Loca tion: [facility] odify By: mona reza DateTime : 05/19/20 11 08:30:00 AM Not Available Not Available Not Available Multi Vitamin active Not Available Not Available Not Available Vitals Date Recorded Body height Body mass index (BMI) Body weight Systolic blood pressure Diastolic blood pressure Provider Name and Address Organization Details Last Updated DateTime 11/02/2021 159.39 cm 33.9 kg/m2 37081.83 g 126 mm[Hg] 78 mm[Hg] Deanna Henderson [facility] 2 09:41:18 Date Recorded Body height Body mass index (BMI) Body weight Systolic blood pressure Diastolic blood pressure Provider Name and Address Organization Details Last Updated DateTime 01/06/2023 159.39 cm 34.1 kg/m2 71603.14 g 125 mm[Hg] 79 mm[Hg] Judy Saturnino [facility] 3 09:32:56 Date Recorded Body height Body mass index (BMI) Body weight Systolic blood pressure Diastolic blood pressure Provider Name and Address Organization Details Last Updated DateTime 02/20/2024 159.39 cm 34.2 kg/m2 11484.02 g 120 mm[Hg] 79 mm[Hg] Liset Hodges [facility] 4 09:37:00 Social History Question Answer Notes LastModified by Organizat ion Details LastModified Time Tobacco Smoking Status Never Smoker Kateryna Machelle crespo, [facility] 09/28/2021 13:00:18 Do You Have An Advance Directive? No [email or web address] Information n ot available 09/04/2021 Are You Blind Or Do You Have Difficulty Seeing? No [email or web address] Information n ot available 09/04/2021 What Is Your Level Of Caffeine Consumption? Occasional Information not available 09/23/2020 How Much Tobacco Do You Chew? None [email or web address] Information not available 09/04/2021 In The 14 Days Before Symptom Onset, Have You Had Close Contact With A Laboratory-confirm ed COVID-19 While That Case Was Ill? No [email or web address] Information n ot available 09/04/2021 In The 14 Days Before Symptom Onset, Have You Had Close Contact With A Person Who Is Under Investigation For COVID-19 While That Person Was Ill? No [email or web address] Information not available 09/04/2021 Have You Been To An Area Known To Be High Risk For COVID-19? No [email or web address] Information not available 09/04/2021 Are You Deaf Or Do You Have Serious Difficulty Hearing? No [email or web address] Information not available 09/04/2021 What Type Of Diet Are You Following? REGULAR [email or web address] Information n ot available 09/04/2021 What Is The Highest Grade Or Level Of School You Have Completed Or The Highest Degree You Have Received? [id number] [email or web address] Information not available 09/04/2021 Do You Use Protection During Sex? No [email or web address] Information not available 09/04/2021 Do You Use Your Seat Belt Or Car Seat Routinely? Yes Information not available 09/04/2021 Do You Have Smoke And Carbon Monoxide Detectors In Your Home? Yes [email or web address] Information not available 09/04/2021 How Much Tobacco Do You Smoke? No [email or web address] Information not available 09/04/2021 Do You Use Sunscreen Routinely? Yes [email or web address] Information not available 09/04/2021 Has Tobacco Cessation Counseling Been Provided? No Information not available 09/28/2021 Have You Used IV Drugs? No [email or web address] Information not available 09/04/2021 Do You Have Difficulty Walking Or Climbing Stairs? No Information not available 09/28/2021 Sex: Unknown Functional Status Question Answer Note LastModified by Organizat ion Details LastModified Time Do you use any illicit or recreational drugs? No Information not available 09/23/2020 Do you or have you ever used any other forms of tobacco or nicotine? No Information not available 09/28/2021 What is your level of alcohol consumption? None Information not available 09/23/2020 Are you able to walk? [email or web address] Information not available 09/04/2021 Are you able to care for yourself? Yes Information n ot available 09/28/2021 What is your occupation? [employer] [email or web address] Information not available 09/04/2021 Do you have difficulty dressing or bathing? No Information not available 09/28/2021 What is your exercise level? Occasional [email or web address] Information not available 09/04/2021 Mental Status Question Answer Note LastModified by Organization D etails LastModified Time Do you feel stressed (tense, restless, nervous, or anxious, or unable to sleep at night)? [id number] [email or web address] Information not available 09/04/2021 Family History Relationship Description Onset Age of this Age Resolved Age Notes LastModified by Organization Details LastModified Time Maternal Grandmother Coronary arterioscler osis Not available 2021 13:00:17 Sister Coronary arterioscler osis Not available 2021 13:00:17 Sister Diabetes mellitus Not available 2020 11:49:21 Sister Carcinoma in situ of breast Not available 2021 13:00:17 Mother Diabetes mellitus Not available 2020 11:49:21 Mother Carcinoma in situ of breast Not available 2021 13:00:17 Mother Disorder of thyroid gland [email or web address] Not available 2021 12:29:40 Brother Diabetes mellitus Not available 2020 11:49:21 Maternal Aunt Diabetes mellitus Not available 2020 11:49:21 Maternal Aunt Carcinoma in situ of breast Not available 2021 13:00:18 Medical History Condition Response Allergies (Food, seasonal, environmental ) N Other N Breast Cancer N Drug/Latex Allergies/Reactions N Blood Transfusion N Dermatologic Disorders Y Lung Disease N Defects or Inherited Disease N Breast Problem N Gestational Diabetes N Hematologic disorders N Anesthesia Complications N History of STI N Deep Vein Thrombosis N Polycystic ovary syndrome N Anxiety Disorder N Autoimmune disease Y Arthritis N Infertility N Polyps N Acid Reflux (GERD) N History of abnormal pap Y Cancer N Stroke N Varicosities N Neurologic/Epilepsy Y Endometriosis N High Cholesterol N Headaches N Fibromyalgia N Kidney Disease N Heart Problems N Kidney or Bladder Problems N Thyroid Problems N GI Problems N Eating Disorder N Anemia N Art (IVF or FET) N Psychiatric Illness N Ovarian Cancer N Diabetes Y Pulmonary (TB, Asthma) N Hepatitis/Liver Disease N No Past Medical History N Eczema N Urinary Tract Infection N Abuse/Domestic Violence N Asthma N Trauma/Violence N Depression/ depression N Heart Disease N Pre-Eclampsia N Hypertension N Osteoporosis N Thrombophilias N Gynecological History Statement/Question Response Abnormal Pap Y Date of Last Mammogram 12/30/2021 Date of LMP 07/17/2009 STIs/STDs N Current Control Method Hysterectom y Most Recent Bone Density Sexually Active? Y Menses Monthly N Date of Last Pap Smear 09/28/2021 Sexual Problems? N Desired Control Method Hysterectom y LMP Unknown Obstetrics History GPAL:G 3 P 3 0 0 3 Type Value Full Term 3 Living 3 Total 3 Past Encounters Encounter ID Performer Location Encounter Start Date Encounter Closed Date Diagnosis/Indication Diagnosis SNOMED-CT Code Diagnosis ICD10 Code Diagnosis Note [id number] Jessica Flores [facility] [address] [address] 09/24/2020 09:16:55 09/24/2020 10:25:57 Gynecologic examination 42009591 Z01.419 Take Calcium with Vitamin D 12-1500mg daily. Do monthly self breast exams. It is advised to get annual flu shot in the fall and she could obtain at [facility] or [facility] care clinic. If you haven't received the Tdap vaccine in the last 10 years you should obtain one as well. Have mammogram yearly, bone density every 2-3 years and colonoscop y every 5-10 years depending on findings and history. Engage in daily exercise of low impact aerobic exercise 45-60 minutes 4-5 times weekly. Avoid tobacco and illicit drugs as well as using moderation with alcohol intake less than 1-2 8 oz beverages daily. This lifestyle behavior pattern will lead to less health conditions and longer life span. If BMI greater than 25 weight watchers or dietary consult advised. Questions have been answered. Patient appears to understand instructio ns, but if you have any further questions call or respond to this email Pap/hpv sent Mammo ordered Colonoscop y UTD wnl by PCP Dexa UTD 2019 [place] [id number] [facility] [address] [address] 09/04/2021 12:28:42 09/06/2021 10:29:55 Screening for malignant neoplasm of ovary 119027689 Z12.73 Today we discussed the followin. Adding in a yearly pelvic US for ovarian cancer screening- -she will schedule for this imaging at front for this year. There may be a chance insurance might not fully reimburse this test but we will attempt to code it appropriat beck; and it does seem to be justified based on her health history, medication s etc. 2. Unless imaging shows there is suspicion for ovarian cancer no lab work is routinely recommende d other than the basic routine adult wellness labs at this time. If there is suspicion for cancers we will complete a CA-125 3. Complete invitae cancer screening test & then refer to genetic counselor to discuss. She is open to this recommenda tion & was instructed to return during regular business hours to complete this blood test. 4. Resources: cancer.org (look up ovarian cancer for more informatio n). Time spent in visit is a total of 26 mins with at least 50% of visit consisting of counseling and review of plan of care. Additional precaution roseanna measures were taken to minimize potential exposure to the Covid-19 virus during this patient s visit, including available hand pie baker upon arrive, temperatur e check and being asked a series of screening questions. All staff wore face coverings during this encounter, as well as provided additional cleaning and sanitizing of all surfaces, including countertop s, pens, chairs, door handles, light switches, etc, prior to and following the patient s visit. [id number] Jessica Flores , [facility] [address] [address] 09/28/2021 12:58:02 09/28/2021 14:23:16 Gynecologic examination [id number] Z01.419 Take Calcium with Vitamin D 12-1500mg daily. Do monthly self breast exams. It is advised to get annual flu shot in the fall and [facility] obtain [facility] [facility] or [facility] take care clinic. If you haven't received the Tdap vaccine in the last 10 years you should obtain one as well. Have mammogram yearly, bone density every 2-3 years and colonoscop y every 5-10 years depending on findings and history. Engage in daily exercise of low impact aerobic exercise 45-60 minutes 4-5 times weekly. Avoid tobacco and illicit drugs as well as using moderation with alcohol intake less than 1-2 8 oz beverages daily. This lifestyle behavior pattern will lead to less health conditions and longer life span. If BMI greater than 25 weight watchers or dietary consult advised. Questions have been answered. Patient appears to understand instructio ns, but if you have any further questions call or respond to this email Pap/hpv sent (Hx of hysterecto my with post-pap abn cells in 2018) Mammo ordered Colonoscop y UTD wnl by PCP Dexa UTD 2020 wnl by PCPArnulfotadara genetic screening discussed & accepted. Coming for US for ovarian cancer screening- we previously talked about it. [id number] Cristo Serrano MD [place] [address] [address] 11/01/2021 09:52:17 11/01/2021 12:22:09 Screening for malignant neoplasm of ovary [id number] Z12.73 [id number] Jessica Flores [facility] [address] [address] 11/02/2021 09:26:32 11/02/2021 09:56:34 Family history of malignant neoplasm of ovary in first degree relative [id number] Z80.41 TVUS results reviewedCo py given for PCPWNLAll questions answered to patient satisfacti on.Will consider q1-2yrs US screening for ovarian cancer.Thi s is determined on case by case basis which patient understand s.NO concerns at this time. Time spent in visit is a total of 15 mins with at least 50% of visit consisting of counseling and review of plan of care. [id number] Jessica Flores [facility] [address] [address] 01/06/2023 09:19:27 01/06/2023 12:58:36 Gynecologic examination [id number] Z01.419 Z11.51 Take Calcium with Vitamin D 12-1500mg daily. Do monthly self breast exams. It is advised to get annual flu shot in the fall and she could obtain at [facility] or [facility] care clinic. If you haven't received the Tdap vaccine in the last 10 years you should obtain one as well. Have mammogram yearly, bone density every 2-3 years and colonoscop y every 5-10 years depending on findings and history. Engage in daily exercise of low impact aerobic exercise 45-60 minutes 4-5 times weekly. Avoid tobacco and illicit drugs as well as using moderation with alcohol intake less than 1-2 8 oz beverages daily. This lifestyle behavior pattern will lead to less health conditions and longer life span. If BMI greater than 25 weight watchers or dietary consult advised. Questions have been answered. Patient appears to understand instructio ns, but if you have any further questions call or respond to this email Pap/hpv sent (Hx of hysterecto my with post-pap abn cells in 2018) q3yrs since last 5+ pap smears have been wnl.Ovaria n screening every other year for now; ordered 2022 so next will be 2024 unless otherwise indicated. Mammo ordered Colonoscop y UTD wnl by PCP Nitin UTD 2020 wnl by PCPComing for US for ovarian cancer screening- we previously talked about it. Screening mammography 24 [id number] Z12.31 Screening for malignant neoplasm of ovary [id number] Z12.73 Today we reviewed previously discussed informatio n: 1. Adding in a yearly pelvic US for ovarian cancer screening- -she will schedule for this imaging at front for this year. There may be a chance insurance might not fully reimburse this test but we will attempt to code it appropriat beck; and it does seem to be justified based on her health history, medication s etc. 2. Unless imaging shows there is suspicion for ovarian cancer no lab work is routinely recommende d other than the basic routine adult wellness labs at this time. If there is suspicion for cancers we will complete a CA-125 3. Complete invitae cancer screening test & then refer to genetic counselor to discuss. She is open to this recommenda tion & was instructed to return during regular business hours to complete this blood test. 4. Resources: cancer.org (look up ovarian cancer for more informatio n). [id number] Cristo Serrano MD [place] [address],[place] [address] 01/10/2023 09:22:29 01/10/2023 10:34:46 Screening procedure [id number] Z12.73 [id number] LETTY HALEY MD [place] [address] [address] 02/20/2024 09:14:13 02/20/2024 10:12:04 Screening mammography [id number] Z12.31 Gynecologi c examination [id number] Z01.419 Well woman [facility]- Cervical cancer screening: Pap smear not indicated (next 09/2026)- Breast cancer screening: mammogram ordered- HPV immunizati on: does not qualify- STD testing: declined- hereditary cancer screening: does not qualify for testing Dermatomyositis [id number] M33.90 - in remission per patient, following with derm- discussed increased risk of multiple cancers after diagnosis, including ovarian- plan for q2 year pelvic US or sooner if symptoms develop Health Concerns Section Related Observation LastModified by Organization Detai ls LastModified Time None Recorded Concern Status LastModified by Organization Details LastModified Time None Recorded Advance Directives Directive N: Payers Encounter Date Sequence Insurance Name Policy Number Policy Cerda Covered Member ID Cerda Member ID Guarantor Name 11/01/2021 1 [employer] [id number] Rachel A Galvan [id number] Rachel Galvan 11/02/2021 1 UMR [id number] Rachel A Galvan [id number] Rachel Galvan 01/06/2023 1 UMR [id number] Rachel A Galvan [id number] Rachel Galvan 01/10/2023 1 UMR [id number] Rachel A Galvan [id number] Rachel Galvan 02/20/2024 1 UMR [id number] Rachel A Galvan [id number] Rachel Galvan Notes Date Note Type Note Provider Name and Address Organization Details Recorded Time 11/02/2021 text/html Here today for U S f/u. Jessica Flores, JOVAN- [address], [place], [address], [facility] 11/02/2021 09:52:29 01/06/2023 text/html Annual [employer] Officer Post-MenopausalRe ported bypatient.Menopau alex Symptoms:no menopausal symptoms; normal vaginal lubrication Vaginal Bleeding:history of menopause having occurred; no history of post menopausal bleeding Urinary Symptoms:no hematuria; no incontinence; no nocturia; no urinary frequency Vulva:no genital lesion; no vulvar atrophy Vagina:normal vaginal discharge; no vaginal atrophy Breast:no breast lump; no nipple discharge; no breast pain Sexual Complaints:no sexual complaints Psychological Symptoms:no depression; no anxiety Preventive Measures:encourag e regular mammograms starting age 40; encourage self breast examination; encourage regular exercise; encourage no tobacco use; needs to schedule mammogram; history of recent colonoscopy Jessica Flores [facility]- [address], [place], [address], [facility] 01/06/2023 12:24:18 02/20/2024 text/html Presents today for her annual well-woman exam. Denies abnormal vaginal discharge. She is sexually active and denies dyspareunia. She has not noticed any changes or masses in her breasts. Hx of dermatomyositis, follows with dermatology. Has increased risk of cancers including ovarian cancer. Completing screening with pelvic US q2 years. LETTY HALEY MD [address], [place], [address], [facility] 02/20/2024 10:06:23 OBGyn Episode Ob Episode Information Episode Created Date Number of Fetuses Patient Bloodtype Patient rh Status Prepregnancy Weight lbs Domestic Partner Domestic Partner Phone Father Name Cloud Software Engineer Status 09/24/19 21 1 CLOSED Fetus Data First Name Last Name Admitted to NICU Weight (g) Sex Living Outcome Pediatric Complications Fetus ID Race Codes Race Delivery Type 4025.62 9 M Full Term 8388 Vaginal Delivery Oscar Calculation Initial Oscar Date Initial Exam Date Initial Exam Provider Initial Ultrasound Date Last Menstrual Period Date Ultra Sound Weeks Gestation 0 Eighteen To Twenty Week Oscar Update Ultra Sound Date Fundal Height At Umbil Quickening Date Ultra Sound Latest Weeks Gestation Final Oscar Confirmed By Final Oscar Confirmed Date Final Oscar Date Ultra Sound Latest Days Gestation 0 0 Menstrual History Last Menstrual Date Menses Monthly On Bcp Conception Prior Menses Frequency Hcg Plus Date Menarche Onset Age Delivery Information Delivery Date Delivery Type Labor Anesthesia Weeks Gestation Incision Type Labor Labor Length Hrs Delivered By Post Complications Tubal Sterilization Discharge Date Comments 2 40 Discharge Information Feeding Method Contraceptive Method Maternal HG B and HCT Levels Ob Episode Information Episode Created Date Number of Fetuses Patient Bloodtype Patient rh Status Prepregnancy Weight lbs Domestic Partner Domestic Partner Phone Father Name Cloud Software Engineer Status 09/24/19 21 1 CLOSED Fetus Data First Name Last Name Admitted to NICU Weight (g) Sex Living Outcome Pediatric Complications Fetus ID Race Codes Race Delivery Type 3798.83 3 F Full Term 8389 Vaginal Delivery Oscar Calculation Initial Oscar Date Initial Exam Date Initial Exam Provider Initial Ultrasound Date Last Menstrual Period Date Ultra Sound Weeks Gestation 0 Eighteen To Twenty Week Oscar Update Ultra Sound Date Fundal Height At Umbil Quickening Date Ultra Sound Latest Weeks Gestation Final Oscar Confirmed By Final Oscar Confirmed Date Final Oscar Date Ultra Sound Latest Days Gestation 0 0 Menstrual History Last Menstrual Date Menses Monthly On Bcp Conception Prior Menses Frequency Hcg Plus Date Menarche Onset Age Delivery Information Delivery Date Delivery Type Labor Anesthesia Weeks Gestation Incision Type Labor Labor Length Hrs Delivered By Post Complications Tubal Sterilization Discharge Date Comments 1 40 Discharge Information Feeding Method Contraceptive Method Maternal HG B and HCT Levels Ob Episode Information Episode Created Date Number of Fetuses Patient Bloodtype Patient rh Status Prepregnancy Weight lbs Domestic Partner Domestic Partner Phone Father Name Cloud Software Engineer Status 09/24/19 21 1 CLOSED Fetus Data First Name Last Name Admitted to NICU Weight (g) Sex Living Outcome Pediatric Complications Fetus ID Race Codes Race Delivery Type 3826.95 5704 F Full Term 8390 Vaginal Delivery Oscar Calculation Initial Oscar Date Initial Exam Date Initial Exam Provider Initial Ultrasound Date Last Menstrual Period Date Ultra Sound Weeks Gestation 0 Eighteen To Twenty Week Oscar Update Ultra Sound Date Fundal Height At Umbil Quickening Date Ultra Sound Latest Weeks Gestation Final Oscar Confirmed By Final Oscar Confirmed Date Final Oscar Date Ultra Sound Latest Days Gestation 0 0 Menstrual History Last Menstrual Date Menses Monthly On Bcp Conception Prior Menses Frequency Hcg Plus Date Menarche Onset Age Delivery Information Delivery Date Delivery Type Labor Anesthesia Weeks Gestation Incision Type Labor Labor Length Hrs Delivered By Post Complications Tubal Sterilization Discharge Date Comments 0 40 Discharge Information Feeding Method Contraceptive Method Maternal HG B and HCT Levels
--- OUTSIDE RECORDS SUMMARY | 2024-12-19 14:32 | XMS_ITS | Encounter Summary ---
Author Organization [facility] Health Address [address] [facility] [place] [address] Care Team Providers Care Precision Crop Manager Name Role Phone Sawyer Gardner PA-C Primary Care Provide r Kayode Brizuela MD Unavailable Jacques Holguin DO Primary Care Provider Encounter Details Date Type Department Care Team (Late st Contact Info) Description 08/05/2019 Lab Requisition [facility] [address] [place] [phone] Kayode Brizuela MD [address] [place] [address] Social History Tobacco Use Types Packs/Day Years Used Date Smoking Tobacco: Never Assessed Comments Unknown Sex and Gender Information Value Date Recorded Sex Assigned at Not on file Legal Sex Female 6:12 AM SENIOR MEDIA DIRECTOR Gender Identity Not on file Sexual Orientation Not on file documented as of this encounter Plan of Treatment Upcoming Encounters Date Type Department Care Team (Late Contact Info) Description 03/03/2025 11:30 AM CDT Office Visit [facility] - Dermatology [address] [place] [phone] Floridalma Gonzalez MD [address] [place] [address] 3 [place] [phone] 06/02/2025 10:00 AM SENIOR MEDIA DIRECTOR Office Visit [facility] - Dermatology [address] [facility], [place] [phone] Floridalma Gonzalez MD [address] [facility] 3L [place] [phone] documented as of this encounter Procedures Procedure Name Priority Date/Time Associated Diagnosis Comments DERMATOPATHOLOGY Routine 08/01/2019 12:0 0 AM SENIOR MEDIA DIRECTOR documented in this encounter Results * DERMATOPATHOLOGY (08/01/2019 12:00 AM SENIOR MEDIA DIRECTOR) Case Report Dermatopathology Report Case: [id number] Authorizing Provider: Kayode Brizuela MD Collected: 08/01/2019 12:00 AM Ordering Location: [facility] Received: 08/05/2019 07:17 AM Pathologist: Floridalma Gonzalez MD Specimens: A) - Skin, left upper back B) - Skin, left flex FA C) - Skin, right chest D) - Skin, dorsal left 3rd finger MCP joine 0 1:54 PM SENIOR MEDIA DIRECTOR DERMATOPATHOLOGY LABORATORY Final Diagnosis Specimen A. SKIN, left upper back: VACUOLAR INTERFACE DERMATITIS (L30.8) SUPERFICIAL AND MID-DERMAL PERIVASCULAR LYMPHOCYTIC INFILTRATE (R21) (see microscopic description and comment) Specimen B. SKIN, left flex FA: VACUOLAR INTERFACE DERMATITIS WITH RARE EOSINOPHILS (L30.8) (see microscopic description and comment) Specimen C. SKIN, right chest: VACUOLAR INTERFACE DERMATITIS (L30.8) SUPERFICIAL PERIVASCULAR LYMPHOCYTIC INFILTRATE (L98.9) (see microscopic description and comment) Specimen D. SKIN, dorsal left 3rd finger MCP joine: VACUOLAR INTERFACE DERMATITIS (L30.8) SUPERFICIAL AND MID-DERMAL PERIVASCULAR LYMPHOCYTIC INFILTRATE (R21) (see microscopic description and comment) 0 1:54 PM SENIOR MEDIA DIRECTOR DERMATOPATHOLOGY LABORATORY at 1354 SENIOR MEDIA DIRECTOR Clinical History A-D: R/O dermatomyositis, photosensitivity dermatitis vs other. 0 1:54 PM [facility] DERMATOPATHOLOGY LABORATORY Gross Description Specimen A: Received is one formalin filled container labeled with the patient's name and designated left upper back. The specimen consists of a punch biopsy measuring [id number], bisected. Jar 0. Specimen B: Received is one formalin filled container labeled with the patient's name and designated left flex FA. The specimen consists of a punch biopsy measuring [id number], bisected. Jar 0. Specimen C: Received is one formalin filled container labeled with the patient's name and designated right chest. The specimen consists of a punch biopsy measuring [id number], bisected. Jar 0. Specimen D: Received is one formalin filled container labeled with the patient's name and designated dorsal left 3rd finger MCP joine. The specimen consists of a punch biopsy measuring [id number]. Jar 0. 0 1:54 PM [facility] DERMATOPATHOLOGY LABORATORY Microscopic Description Specimen A. SKIN, left upper back: There are scattered dyskeratotic keratinocytes and vacuolar alteration along the basal cell layer. There is focal thickening of the basement membrane. In the dermis there is a superficial and mid-dermal perivascular lymphocytic infiltrate without eosinophils. Focal bruce-eccrine inflammation is seen. COMMENT: The histologic features are consistent with a connective tissue disease, and the histologic differential diagnosis includes dermatomyositis and lupus erythematosus. Specimen B. SKIN, left flex FA: There are scattered dyskeratotic keratinocytes and vacuolar alteration along the basal cell layer. The basement membrane is thickened. A mild, perivascular lymphocytic infiltrate is observed in the superficial dermis. Rare eosinophils are seen. COMMENT: The histologic differential diagnosis includes a connective tissue disease and a lichenoid drug reaction based on the presence of rare eosinophils. Specimen C. SKIN, right chest: There are scattered dyskeratotic keratinocytes and vacuolar alteration along the basal cell layer. In the dermis, there is a perivascular, mainly lymphohistiocytic inflammatory infiltrate. COMMENT: The histologic features are consistent with a connective tissue disease, and the histologic differential diagnosis includes dermatomyositis and lupus erythematosus. Specimen D. SKIN, dorsal left 3rd finger MCP joine: Sections show compact hyperkeratosis consistent with acral skin. There are scattered dyskeratotic keratinocytes and vacuolar alteration along the basal cell layer. In the dermis there is a superficial and mid-dermal perivascular lymphocytic infiltrate without eosinophils. COMMENT: The presence of these histologic features in acral skin from over the metacarpal-phalange al joint is favors a diagnosis of dermatomyositis over a connective tissue disorder. Clinicopathologic correlation and correlation with serologies is recommended. 0 1:54 PM SENIOR MEDIA DIRECTOR DERMATOPATHOLOGY LABORATORY Disclaimer An external and internal positive and negative controls are appropriate for the histochemical, immunohistochemical and immunofluorescence stain(s) in this case (if any), except where stated explicitly. The performance characteristics of the stain(s) cited in this report were developed and its performance characteristic determined by the Dermatopathology Laboratory at [facility], directed by Dr. Soren Gonzalez. These tests need not be, and therefore are not, approved by the [place] Food and Drug Administration. The tests are used for clinical purposes. Billing Codes Specimen Charges Stain Charges 00294 14250 98151 62138 1 1 1 1 0 1:54 PM SENIOR MEDIA DIRECTOR DERMATOPATHOLOGY LABORATORY Embedded Images 0 1:54 PM SENIOR MEDIA DIRECTOR DERMATOPATHOLOGY LABORATORY Pathology/Cytology TISSUE SPECIMEN FROM SKIN / Unknown 08/01/2019 08/05/2019 7:17 AM SENIOR MEDIA DIRECTOR Miscellaneous samples (specimen) TISSUE SPECIMEN FROM SKIN / Unknown 08/01/2019 08/05/2019 7:17 AM SENIOR MEDIA DIRECTOR Miscellaneous samples (specimen) TISSUE SPECIMEN FROM SKIN / Unknown 08/01/2019 08/05/2019 7:17 AM SENIOR MEDIA DIRECTOR Miscellaneous samples (specimen) TISSUE SPECIMEN FROM SKIN / Unknown 08/01/2019 08/05/2019 7:17 AM SENIOR MEDIA DIRECTOR Kayode Brizuela MD LAB - PATHOLOGY/CYTOLOGY ORD ERABLES Final Result DERMATOPATHOLOGY LABORATORY [facility] - Department of Dermatology [address] [facility], 5th [place] [address], [facility] [phone] documented in this encounter Visit Diagnoses Not on filedocumented in this encounter Care Teams Precision Crop Manager Relationship Specialty Start Date End Date Sawyer Gardner PA-C [address] [place] [address] PCP - General 09/11/19 06/02/24 Jacques Holguin DO [address] [place] [address] PCP - General Internal Medicine 06/03/24 Kayode Brizuela MD [address] [place] [address] Collaborating Physician Dermatology 09/12/19 documented as of this encounter
--- OUTSIDE RECORDS SUMMARY | 2024-12-19 14:32 | XMS_ITS | Encounter Summary ---
Author Organization [facility] Health Address [address] [facility] [place] [address] Care Team Providers Care [place] And Shave Press Operator Name Role Phone Sawyer Gardner PA-C Primary Care Provide r Kayode Brizuela MD Unavailable [phone] Jacques Holguin DO Primary Care Provider [phone] Reason for Visit * Reason Onset Date Comments MEDICATION REFILL 07/14/2020 Encounter Details Date Type Department Care Team (Late st Contact Info) Description 07/14/2020 Refill [facility] [address] [place] [address], [place] [phone] Floridalma Gonzalez MD [address] [place] [address] 3 [place] [phone] MEDICATION REFILL Social History Tobacco Use Types Packs/Day Years [...] Binge Drinking Not on file 11/15 Comments Unknown Sex and Gender Information Value Date Recorded Sex Assigned at Not on file Legal Sex Female 6:12 AM TUNNEL WORKER Gender Identity Not on file Sexual Orientation Not on file documented as of this encounter Plan of Treatment Upcoming Encounters Date Type Department Care Team (Late st Contact Info) Description 03/03/2025 11:30 AM CDT Office Visit [facility]erm[facility] [address] [place] [phone] Floridalma Gonzalez MD [address] [place] [address] [place] [phone] 06/02/2025 10:00 AM TUNNEL WORKER Office Visit [facility] [address] [place] [phone] Floridalma Gonzalez MD [address] [place] [address] [place] [address] documented as of this encounter Visit Diagnoses Diagnosis Dermatomyositis (HCC) Dermatomyositis documented in this encounter Care Teams [place] And Shave Press Operator Relationship Specialty Start Date End Date Sawyer Gardner PA-C [address] [place] [address] PCP - General 09/11/19 06/02/24 Jacques Holguin DO [address] [place] [address] PCP - General Internal Medicine 06/03/24 Kayode Brizuela MD [address] [place] [address] Collaborating Physician Dermatology 09/12/19 documented as of this encounter
--- OUTSIDE RECORDS SUMMARY | 2024-12-19 14:32 | XMS_ITS | Encounter Summary ---
Author Organization [facility] Health Address [address] [place] [address] Care Team Providers Care Master Ship Name Role Phone Sawyer Gardner PA-C Primary Care Provide r Kayode Brizuela MD Unavailable [phone] Jacques Holguin DO Primary Care Provider [phone] Reason for Visit * Reason Onset Date Comments MEDICATION REFILL 03/03/2021 Encounter Details Date Type Department Care Team (Late st Contact Info) Description 03/03/2021 Refill [facility] [address] [place] [address] Floridalma Gonzalez MD [address] [facility] [address]L [place] [phone] MEDICATION REFILL Social History Tobacco Use Types [...] on file Legal Sex Female 6:12 AM FLAT FOLDING MACHINE OPERATOR Gender Identity Not on file Sexual Orientation Not on file documented as of this encounter Plan of Treatment Upcoming Encounters Date Type Department Care Team (Late st Contact Info) Description 03/03/2025 11:30 AM CDT Office Visit [facility] Derm[facility]ology [address] [place] [phone] Floridalma Gonzalez MD [address] [place] [phone] 06/02/2025 10:00 AM FLAT FOLDING MACHINE OPERATOR Office Visit [facility] Dermatology [address] [place] [address], [place] [address] Floridalma Gonzalez MD [facility] [place] [phone] documented as of this encounter Visit Diagnoses Diagnosis Dermatomyositis (HCC) Dermatomyositis documented in this encounter Care Teams Master Ship Relationship Specialty Start Date End Date Sawyer Gardner PA-C [address] [place], [place] [phone] PCP - General 09/11/19 06/02/24 Jacques Holguin DO [address] [place] [address] PCP - General Internal Medicine 06/03/24 Kayode Brizuela MD [address] [place] [address] Collaborating Physician Dermatology 09/12/19 documented as of this encounter
--- OUTSIDE RECORDS SUMMARY | 2024-12-19 14:32 | XMS_ITS | Encounter Summary ---
Author Organization [facility] Address [address] [facility] [place] [address] Care Team Providers Care Assisted Living Home Director Name Role Phone Kayode Brizuela MD Unavailable [phone] Jacques Holguin DO Primary Care Provider [phone] Reason for Visit * Reason Comments Full Body Skin Examination Dermatomyosit is- Clobetasol 0.05% solution (pt does not have)- Triamcinolone 0.1% cr BID- HC 2.5% cr bid ( does not have)Today: patient states she has been flaring since mid November on both arms, scalp, chest, back, and thighs Encounter Details Date Type Department Care Team (Latest Contact Info) Description 12/18/2024 2:00 PM CDT Office Visit [facility] - Dermatology [address] [place] [address], [facility] [place] [phone] Floridalma Gonzalez MD [address] [place] [address] [place] [address] Dermatomyositis (HCC) (Primary Dx); High risk medication use; Melanocytic nevi of trunk; Solar lentiginosis; Xerosis cutis; Medication monitoring encounter Social History Tobacco Use Types Packs/Day Years [...] on file Legal Sex Female 6:12 AM RESIDENTIAL NURSE Gender Identity Not on file Sexual Orientation Not on file documented as of this encounter Patient Instructions * Patient Instructions* Gilbert Oleary MD - 12/18/2024 2:18 PM CDT Thank you for coming to your appointment today. We will see you back in mar 03 @ 11:30 AM (haja Gonzalez) - We are starting azathioprine 50 mg (one tablet) twice daily. We will consider increasing in 4 weeks depending on how you're doing. - We are starting prednisone 40 mg daily (4 tablets) for one week, then 30 mg daily (3 tablets) forone week, 20 mg (2 tablets) daily for one week, 10 mg daily (1 tablet) for one week, 5 daily (1/2 tablets) for one week, 5 mg (1/2 tablet) every other day for one week. - Get the following labs done every two weeks: CBC (blood count), CMP (metabolic panel) - We are also order the following labs once: CK, aldolase (muscle enzyme markers), and myositis panel (antibody panel). - Schedule follow-up with Rheumatology as soon as possible. - Complete the following cancer screenings as soon as possible: colonoscopy, pap smear, mammogram. Also discuss this plan with your primary care provider as soon as possible. - Avoid the sun as much as possible. Wear sunscreens with any sort of sun exposure. - We are starting clobetasol solution for the scalp. Put this on at night and then wash off in the morning. Use as needed for scalp itching. (Works best when on 6-8 hours) - Can continue triamcinolone as needed for the body. For skin cancer prevention: We recommend DAILY sun protection and MONTHLY self skin exams. Examine your moles for any changes. Alert us of any moles that are asymmetrical, have irregular borders, more than one color in a mole, larger than end of a pencil eraser, or anything that is changing over time (A-B-C-D-Es of Melanoma). See below for sun screen recommendations. SUNSCREENS UVA and UVB PROTECTION Sunlight consists of two types of light that can cause or worsen most skin problems: UVA (ultraviolet A) Brown spots Wrinkles Aging Rosacea Less variation with seasons All year round All day strong No rating system available Passes through glass and clouds UVB (ultraviolet B) Skin cancers Sunburn Tanning Strongest in summer Peak hours 10am to 2pm SPF rates UVB protection Sunscreens that block both UVA and UVB light contain: Zinc Oxide (should contain at least 4% zinc oxide) Titanium Dioxide Parsol or Avobenzone (additives improve stability of Avobenzone) There are other UVA blocking ingredients but they are not as complete as these three. Tips/Suggestions SPF of 30 or higher Zinc Oxide or other UVA block such as Helioplex or Anthelios in product Remember there is no safe UV light???so there is no such thing as a safe suntan. Apply sunscreen daily (even in winter and on cloudy days) and reapply every 2 to 4 hours depending on activity. Approximately one ounce (a shot glass) is necessary to adequately cover the entire body. documented in this encounter Progress Notes * Gilbert Oleary MD - 12/18/2024 2:02 PM CDT Chief Complaint Patient presents with Full Body Skin Examination Dermatomyositis - Clobetasol 0.05% solution (pt does not have) - Triamcinolone 0.1% cr BID - HC 2.5% cr bid ( does not have) Today: patient states she has been flaring since mid November on both arms, scalp, chest, back, and thighs HPI: Rachel Galvan a 64 year old female presents for f/u amyopathic DM. Last office visit (06/03/2024 Floridalma Gonzalez MD): DM well controlled. Concerns: #Dermatomyositis Status: Previously well controlled, now flaring since 11/2024 Symptoms: no myalgias or weakness Current treatments: - Triamcinolone 0.1% cr Other: Age approp cancer screening per PCP - Had mammogram done 2023 - Sees obgyn yearly, had 'partial hysterectomy' a decade ago - Had normal TVUS November 02, 2021 Past treatments: Azathioprine 50 mg BID---->QD---->Held due to doing well MTX 2.5 mg - 25 mg PO QWeekly and Plaquenil 200 mg BID x6 months without improvement - Clobetasol 0.05% solution scalp (not using) - HC 2.5% cr (not using) Outside lab results from Dr. Brizuela: 08/13/19 RF wnl KEILY positive KEILY titer 1:40 KEILY pattern nuclear, speckled Anti cardiolipin Ab IgG wnl Anti cardio antibody IgM wnl Anti cardio antibody IgA wnl Anti Fox Ab wnl Aldolase wnl Donna 1 Ab wnl DNA (ds) Ab wnl SSA-A wnl SS-B wnl [facility] labs and imaging from September 2019 (media tab) PFT at [facility] September 2018 WNL CXR at [facility] September 2018 WNL MRI left shoulder - rotator cuff tear , proximal biceps tendon tear MRI bilateral thighs +enhancement DERMATOPATHOLOGY: [id number] Order: [id number] Collected: 08/01/2019 12:00 AM Status: Final result Visible to patient: No (Not Released) Component Final Diagnosis Specimen A. SKIN, left upper [...] INFILTRATE (R21) (see microscopic description and comment) Clinical History A-D: R/O dermatomyositis, photosensitivity dermatitis vs other. Gross Description Specimen A: Received is one formalin filled container labeled with the patient's name and designated left upper back. The specimen consists of a punch biopsy measuring [id number], bisected. Jar 0. Specimen B: Received is one formalin filled container labeled with the patient's name and designated left flex FA. The specimen consists of a punch biopsy measuring [id number], bisected. Jar 0. Specimen C: Received is one formalin filled container labeled with the patient's name and designated right chest. The specimen consists of a punch biopsy measuring [id number], bisected. Jar 0. Specimen D: Received is one formalin filled container labeled with the patient's name and designated dorsal left 3rd finger MCP joine. The specimen consists of a punch biopsy measuring [id number]. Jar 0. Microscopic Description Specimen A. SKIN, left upper [...] includes a connective tissue disease and a lichenoiddrug reaction based on the presence of rare [...] features in acral skin from over the metacarpal-phalangeal joint is favors a diagnosis of dermatomyositis over a connective tissue disorder. Clinicopathologic correlation and correlation with serologies is recommended. ROS: No other skin complaints Allergies and medications were reviewed and verified. Past medical history, social history and family history were reviewed. PMHx, Surgical Hx, FHx, Social Hx, Meds, Allergies reviewed, with pertinent positives/negatives below: Pertinent PMFSHx: family history of DM in pt's sister PE: No acute distress. Mood clear/affect appropriate. Alert and oriented. Mucous membranes moist, lips free of lesions. Sclera anicteric, conjunctiva clear. Full body skin exam was conducted to include the scalp, face, lips, ears, neck, chest, abdomen, back, buttock, right and left hands and forearms, right and left leg and feet and was normal with the following exceptions: - erythematous patches over the face, extensors forearms, chest, back - violaceous swelling of the upper eyelids - violaceous flat-topped papules of the knuckles bilaterally - dilated capillaries present around the nail folds - multiple 2-6 mm bonilla brown macules and papules and skin colored papules on face, trunk, and extremities - Scattered, well-defined, bonilla to light brown macules on sun exposed skin including face, shoulders, and arms, but none with markedly different appearance from others unless otherwise noted A/P: Rachel was seen today for dermatomyositis. 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 Will consider increasing to 100 mg qAM and 50 mg qHS in the future. - Start prednisone taper 40 mg qd x 7d, 30 mg qd x 7d, 20 mg qd x 7d, 10 mg qd x 7d, 5 mg qd x 7d, 5 mg qod x 7d. - Cbc, cmp q2w - CK, aldolase, myositis panel now - TPMT activity assay normal 02/2020 - Recommended repeating cancer screening as soon as reasonably possible including colonoscopy, pap smear, mammogram. Also recommended discussing flare with PCP. - Restart Clobetasol 0.05% solution scalp bid prn - Continue Triamcinolone 0.1% cr to body bid prn - Continue HC 2.5% cr bid prn to face - Discussed sun protective measures Multiple benign melanocytic nevi - Benign, reassurance - Counseled on importance of daily sun protection (Broad spectrum, SPF >30), monthly self skin exams - ABCDEs of melanoma reviewed (in AVS) - Sun screen hand out provided Lentigines - Reviewed the importance of sun protection (including sunscreen, wearing hats, minimizing sun exposure) - Reviewed ABCDEs for moles - Reviewed importance of SPF 30+ daily Xerosis cutis - Frequent use of emollients - Creams>lotions Coding Rationale New or est? Established Patient Highest problem complexity: 1 or more chronic illnesses with exacerbation, progression, or side effects of treatment Data review: Ordering of test(s): 3 or more unique test(s) ordered Highest level of risk: Moderate Suggested code: 95428 Patient seen and examined with Dr. Gonzalez Return to Clinic Mar 03 2025 w/ Dr. Gonzalez. Gilbert Oleary MD, MPHS Dermatology Research Fellow documented in this encounter Plan of Treatment Upcoming Encounters Date Type Department Care Team (Late st Contact Info) Description 03/03/2025 11:30 AM CDT Office Visit [facility] - Dermatology [address] [place] [address], [place] [phone] Floridalma Gonzalez MD [address] [place] [address] 3 [place] [address] 06/02/2025 10:00 AM RESIDENTIAL NURSE Office Visit [facility] - Dermatology [address] [facility], [place] [phone] Floridalma Gonzalez MD [facility]5 [facility] 3L [place] [address] Scheduled Orders Name Type Priority Associated Diagnoses Orde r Schedule CBC WITH DIFFERENTIAL Lab Routine High risk medication use Ordered: 12/18/2024 COMPREHENSIVE METABOLIC PANEL Lab Routine High risk medication use Ordered: 12/18/2024 MYOSITIS ANTIBODY PANEL COMPREHENSIVE Lab Routine Dermatomyositis ([facility]) Ordered: 12/18/2024 CK BLOOD Lab Routine Dermatomyositis ([facility]) Ordered: 12/18/2024 ALDOLASE Lab Routine Dermatomyositis ([facility]) Ordered: 12/18/2024 MYOSITIS ANTIBODY PANEL COMPREHENSIVE Lab Routine Dermatomyositis ([facility]) Ordered: 12/18/2024 documented as of this encounter Visit Diagnoses Diagnosis Dermatomyositis (HCC)- Primary Dermatomyositis High risk medication use Encounter for long-term (current) use of other medications Melanocytic nevi of trunk Benign neoplasm of skin of trunk, except scrotum Solar lentiginosis Other dyschromia Xerosis cutis Other specified disease of sebaceous glands Medication monitoring encounter Encounter for therapeutic drug monitoring documented in this encounter Care Teams Assisted Living Home Director Relationship Specialty Start Date End Date Jacques Holguin DO [address] [place] [address] PCP - General Internal Medicine 06/03/24 Kayode Brizuela MD [address] [place] [address] Collaborating Physician Dermatology 09/12/19 documented as of this encounter
[2024-12-19 16:37] LABS: Creatine Kinase 143 U/L (30-135)
[2024-12-23 14:13] LABS: Aldolase 4.8 U/L (< OR = 8.1)
[2024-12-24 23:53] LABS: JO-1 AB <11 SI (<11); MI-2 Alpha Ab <11 SI (<11); MI-2 Beta Ab <11 SI (<11); NXP-2 AB 12 SI (<11); TIF1 Gamma Ab 100 SI (<11)
== END 2024-12-19 13:51 | disposition home or self-care (01) ==
LOC: ANHLAB 13:53
PROVIDERS: PCP Internal Medicine; Visit Provider Dermatology
DX: M33.13 Other dermatomyositis without myopathy (principal)
CPT/HCPCS: 36415; 82085; 82550; 84182

== ENCOUNTER 2025-02-01 06:57 | Outpatient (CLI) | payer OTHER, SELFPAY ==
--- OUTSIDE RECORDS SUMMARY | 2025-02-01 07:00 | XMS_ITS | Encounter Summary ---
Author Organization [facility] Health Address [address] [facility] [place] [address] Care Team Providers Care Slider Assembler Name Role Phone Sawyer Gardner PA-C Primary Care Provide r Kayode Brizuela MD Unavailable [phone] Jacques Holguin DO Primary Care Provider [phone] Reason for Visit * Reason Onset Date Comments MEDICATION REFILL 03/03/2021 Encounter Details Date Type Department Care Team (Late st Contact Info) Description 03/03/2021 Refill [facility] [address] [place] [address] Floridalma Gonzalez MD [address] [facility] 3L [place] [phone] MEDICATION REFILL Social History Tobacco Use Types [...] on file Legal Sex Female 6:12 AM FORM GRADER Gender Identity Not on file Sexual Orientation Not on file documented as of this encounter Plan of Treatment Upcoming Encounters Date Type Department Care Team (Late st Contact Info) Description 03/03/2025 11:30 AM CDT Office Visit [facility] - Dermatology [address] [place] [phone] Floridalma Gonzalez MD [address] [place] [address] 06/02/2025 10:00 AM FORM GRADER Office Visit [facility] - Dermatology [address] [place] [address], [place] [address] Floridalma Gonzalez MD [facility] [place] [phone] documented as of this encounter Visit Diagnoses Diagnosis Dermatomyositis (HCC) Dermatomyositis documented in this encounter Care Teams Slider Assembler Relationship Specialty Start Date End Date Sawyer Gardner PA-C [address] [place], [place] [phone] PCP - General 09/11/19 06/02/24 Jacques Holguin DO [address] [place] [address] PCP - General Internal Medicine 06/03/24 Kayode Brizuela MD [address] [place] [address] Collaborating Physician Dermatology 09/12/19 documented as of this encounter
--- OUTSIDE RECORDS SUMMARY | 2025-02-01 07:00 | XMS_ITS | Encounter Summary ---
Author Organization [facility] Health Address [address] [place] [address] Care Team Providers Care Float Tender Name Role Phone Kayode Brizuela MD Unavailable [phone] Jacques Holguin DO Primary Care Provider [phone] Reason for Visit * Reason Onset Date Comments Appointment 11/18/2024 Encounter Details Date Type Department Care Team (Late st Contact Info) Description 11/18/2024 Telephone [facility] - Dermatology [address] [place] [address], [facility] [place] [address] Floridalma Gonzalez MD [facility] [place] [address] Appointment Social History Tobacco Use [...] on file Legal Sex Female 6:12 AM ROUSTABOUT CREW Gender Identity Not on file Sexual Orientation [...] to scheduled sooner visit with provider. CB# [phone] documented in this encounter Plan of Treatment Upcoming Encounters Date Type Department Care Team (Late st Contact Info) Description 03/03/2025 11:30 AM CDT Office Visit [facility] - Dermatology [address] [place] [phone] Floridalma Gonzalez MD [address] [place] [address] [place] [address] 06/02/2025 10:00 AM ROUSTABOUT CREW Office Visit [facility] - Dermatology [address] [place] [phone] Floridalma Gonzalez MD [address] [place] [address] [place] [address] documented as of this encounter Visit Diagnoses Not on filedocumented in this encounter Care Teams Float Tender Relationship Specialty Start Date End Date Jacques Holguin DO [address] [place], [place] [phone] PCP - General Internal Medicine 06/03/24 Kayode Brizuela MD [address] [facility] [place] [address] Collaborating Physician Dermatology 09/12/19 documented as of this encounter
--- OUTSIDE RECORDS SUMMARY | 2025-02-01 07:00 | XMS_ITS | Encounter Summary ---
Author Organization [facility] Health Address [address] [facility] [place] [address] Care Team Providers Care Shank Archer Name Role Phone Sawyer Gardner PA-C Primary Care Provide r Kayode Brizuela MD Unavailable [phone] Jacques Holguin DO Primary Care Provider [phone] Encounter Details Date Type Department Care Team (Late st Contact Info) Description 08/05/2019 Lab Requisition [facility] [address] [place] [phone] Kayode Brizuela MD [address] [place] [address] Social History Tobacco Use Types Packs/Day Years Used Date Smoking Tobacco: Never Assessed Comments Unknown Sex and Gender Information Value Date Recorded Sex Assigned at Not on file Legal Sex Female 6:12 AM EXAMINING CHAIR ASSEMBLER Gender Identity Not on file Sexual Orientation Not on file documented as of this encounter Plan of Treatment Upcoming Encounters Date Type Department Care Team (Late Contact Info) Description 03/03/2025 11:30 AM CDT Office Visit [facility] - Dermatology [address] [place] [phone] Floridalma Gonzalez MD [address] [place] [address] 3 [place] [phone] 06/02/2025 10:00 AM EXAMINING CHAIR ASSEMBLER Office Visit [facility] Dermatology [address] [facility], [place] [phone] Floridalma Gonzalez MD [address] [facility] 3L [place] [address] documented as of this encounter Procedures Procedure Name Priority Date/Time Associated Diagnosis Comments DERMATOPATHOLOGY Routine 08/01/2019 12:0 0 AM EXAMINING CHAIR ASSEMBLER documented in this encounter Results * DERMATOPATHOLOGY (08/01/2019 12:00 AM EXAMINING CHAIR ASSEMBLER) Case Report Dermatopathology Report Case: [id number] Authorizing Provider: Kayode Brizuela MD Collected: 08/01/2019 12:00 AM Ordering Location: [facility] Received: 08/05/2019 07:17 AM Pathologist: Floridalma Gonzalez MD Specimens: A) - Skin, left upper back B) - Skin, left flex FA C) - Skin, right chest D) - Skin, dorsal left 3rd finger MCP joine 0 1:54 PM EXAMINING CHAIR ASSEMBLER DERMATOPATHOLOGY LABORATORY Final Diagnosis Specimen A. SKIN, [...] microscopic description and comment) 0 1:54 PM EXAMINING CHAIR ASSEMBLER DERMATOPATHOLOGY LABORATORY at 1354 EXAMINING CHAIR ASSEMBLER Clinical History A-D: R/O dermatomyositis, photosensitivity dermatitis vs other. 0 1:54 PM [facility] DERMATOPATHOLOGY LABORATORY Gross Description Specimen A: Received is one formalin filled container labeled with the patient's name and designated left upper back. The specimen consists of a punch biopsy measuring [id number], bisected. Jar 0. Specimen B: Received is one formalin filled container labeled with the patient's name and designated left flex FA. The specimen consists of a punch biopsy measuring [id number], bisected. Jar 0. Specimen C: Received is one formalin filled container labeled with the patient's name and designated right chest. The specimen consists of a punch biopsy measuring [id number], bisected. Jar 0. Specimen D: Received is one formalin filled container labeled with the patient's name and designated dorsal left 3rd finger MCP joine. The specimen consists of a punch biopsy measuring [id number]. Jar 0. 0 1:54 PM [facility] DERMATOPATHOLOGY LABORATORY Microscopic Description Specimen A. SKIN, [...] with serologies is recommended. 0 1:54 PM EXAMINING CHAIR ASSEMBLER DERMATOPATHOLOGY LABORATORY Disclaimer An external and internal positive and negative controls are appropriate for the histochemical, immunohistochemical and immunofluorescence stain(s) in this case (if any), except where stated explicitly. The performance characteristics of the stain(s) cited in this report were developed and its performance characteristic determined by the Dermatopathology Laboratory at [facility], directed by Dr. Soren Gonzalez. These tests need not be, and therefore are not, approved by the [place] Food and Drug Administration. The tests are used for clinical purposes. Billing Codes Specimen Charges Stain Charges 36827 [id number] [id number] 1 1 1 1 0 1:54 PM EXAMINING CHAIR ASSEMBLER DERMATOPATHOLOGY LABORATORY Embedded Images 0 1:54 PM EXAMINING CHAIR ASSEMBLER DERMATOPATHOLOGY LABORATORY Pathology/Cytology TISSUE SPECIMEN FROM SKIN / Unknown 08/01/2019 08/05/2019 7:17 AM EXAMINING CHAIR ASSEMBLER Miscellaneous samples (specimen) TISSUE SPECIMEN FROM SKIN / Unknown 08/01/2019 08/05/2019 7:17 AM EXAMINING CHAIR ASSEMBLER Miscellaneous samples (specimen) TISSUE SPECIMEN FROM SKIN / Unknown 08/01/2019 08/05/2019 7:17 AM EXAMINING CHAIR ASSEMBLER Miscellaneous samples (specimen) TISSUE SPECIMEN FROM SKIN / Unknown 08/01/2019 08/05/2019 7:17 AM EXAMINING CHAIR ASSEMBLER Kayode Brizuela MD LAB - PATHOLOGY/CYTOLOGY ORD ERABLES Final Result DERMATOPATHOLOGY LABORATORY [facility] - Department of Dermatology [address] [facility], [address] [place] [address], [facility] [phone] documented in this encounter Visit Diagnoses Not on filedocumented in this encounter Care Teams Shank Archer Relationship Specialty Start Date End Date Sawyer Gardner PA-C [address] [place] [address] PCP - General 09/11/19 06/02/24 Jacques Holguin DO [address] [place] [address] PCP - General Internal Medicine 06/03/24 Kayode Brizuela MD [address] [place] [address] Collaborating Physician Dermatology 09/12/19 documented as of this encounter
--- OUTSIDE RECORDS SUMMARY | 2025-02-01 07:00 | XMS_ITS | Clinical Summary ---
Author Organization [facility] [place] Address [address] [place] [address] Care Team Providers Care Bituminous Distributor Operator Name Role Phone Kayode Brizuela MD Unavailable [phone] Jacques Holguin DO Primary Care Provider [phone] Source Comments [facility],non-owned Affiliates and Associated Physician Practices is amultiple site organization consisting of ambulatory clinics and hospital sitesin [place], [place], [place] and [place]. This disclosure is being madepursuant to the Care Everywhere program and may not contain all information available regarding this patient. Last updated 18.[facility] [place] Allergies No known active allergies Medications * Be aware that medications may not be up to date on this document. Alwaysverify current medications with the patient. metFORMIN (GLUCOPHAGE) 500 MG tablet Take 1 (one) tablet by mouth 2 times daily with morning and evening meal 07/02/20 19 Active aspirin (ASPIRIN) 81 MG tablet Take [...] twice daily. 30 days supply. 30 g 02/24/20 20 Active prednisoLONE acetate (PRED FORTE) 1 % ophthalmic suspension Instill 1 drop into left eye once daily 03/05/20 20 Active acyclovir (ZOVIRAX) 400 MG tablet Take 400 mg by mouth 3 times daily 08/26/19 22 Active ibuprofen (ADVIL) 200 MG capsule ibuprofen 200 mg capsule take 1 capsule by oral route every 6 hours as needed Active Vitamins-Lipotrop ics (SUPER B-50 COMPLEX PLUS PO) Super B-50 Complex Active valACYclovir (Valtrex) 1 GM tablet Take 2 (two) tablets by mouth every 12 hours 10/13/19 23 Active triamcinolone acetonide (Kenalog) 0.1 % creamIndications: Dermatomyositis (HCC) Apply to affected area on body BID PRN. 30 day supply. 80 g 5 07/05/20 24 Active clobetasol (Temovate) 0.05 % solutionIndicatio ns:Dermatomyositi s (HCC) Apply to the scalp nightly. 30 days supply. Put on at night and wash your hair in the morning (on the scalp for 6-8 hours) 50 mL 3 12/19/19 25 Active azaTHIOprine (Imuran) 50 MG tabletIndications :Dermatomyositis (HCC) TAKE 1 TABLET BY MOUTH TWICE DAILY 180 tablet 1 01/15/20 25 Active azaTHIOprine (Imuran) 50 MG tabletIndications :Dermatomyositis (HCC) Take 1 (one) tablet by mouth 2 times daily 60 tablet 12/19/19 25 025 Discontinued predniSONE (Deltasone) 10 MG tabletIndications :Dermatomyositis (HCC) [...] 2 days for 7 days. 75 tablet 12/19/19 25 025 Active Problems Problem Noted Date Diagnosed Date [...] PRN Assessment & Plan (09/16/2020 5:24 PM MEDICAL DIR): Status: better controlled, still active -Increase azathioprine [...] today Assessment & Plan (09/16/2020 4:19 PM MEDICAL DIR): - CBC, CMP Q2w ORDERED; provided paper orders Encounters Date Type Department Care Team Description 01/13/2025 Refill [facility] - Dermatology [address] [place] [phone] Floridalma Gonzalez MD Refill Request 12/18/2024 2:00 PM CDT Office Visit [facility] [address] [place] [phone] Floridalma Gonzalez MD Dermatomyositis (HCC) (Primary Dx); High risk medication use; Melanocytic nevi of trunk; Solar lentiginosis; Xerosis cutis; Medication monitoring encounter 12/18/2024 Travel 11/18/2024 Telephone [facility] - Dermatology [address] [place] [phone] Floridalma Gonzalez MD Appointment from Last 3 [...] on file Legal Sex Female 6:12 AM MEDICAL DIR Gender Identity Not on file Sexual Orientation [...] Description 03/03/2025 11:30 AM CDT Office Visit [facility] Dermatology [address] [place] [phone] Floridalma Gonzalez MD [address] [place] [address] [place] [phone] 06/02/2025 10:00 AM MEDICAL DIR Office Visit [facility] Dermatology [address] [place] [phone] Floridalma Gonzalez MD [address] [place] [address] [place] [phone] Health Maintenance Due Date Last Done Comments [...] 09/14, 09/24/2020, Additional history exists INFLUENZA VACCINE (#1) 2025 , 05/05/2021, 05/06/2020, Additional history exists HEPATITIS B [...] 11/13/2020) STUDY INITIALLY PERFORMED ON [11/13/2020] AT [[place], [place]]. The outside final report was provided at the time of this second opinion. DATE OF CONSULTATION: 01/06/2021 REASON FOR CONSULTATION: Left breast mass COMPARISON: Bilateral digital mammograms dated 11/12/2019 and 10/09/2018-[facility] The findings, conclusions and recommendations within this report do not replace the initial findings, conclusions and recommendations made at the facility where the study was performed based upon the imaging and clinical condition at that time. Comparison with the prior report and clinical history is necessary. The provided images may or may not represent the [place] source data set and thus may contain [...] 11/13/2020) STUDY INITIALLY PERFORMED ON [11/13/2020] AT [[place], [place]]. The outside final report was provided at the time of this secondopinion. DATE OF CONSULTATION: 01/06/2021 REASON FOR CONSULTATION: Left breast mass COMPARISON: Bilateral digital mammograms dated 11/12/2019 and 10/09/2018-[facility] The findings, conclusions and recommendations within this report do not replace the initial findings, conclusions and recommendations made atthe facility where the study was performed based upon the imaging andclinical condition at that time. Comparison with the prior report and clinical history is necessary. The provided images may or may not represent the [place] source data set and thus may contain [...] 2019 examination and as a mass in 202 examination, but is visible in all 3 [...] DANTE MEIER on 01/07/2021 8:24 AM . us Ladi Ralph MD IMAGING Final Resul t from Last 3 Months or Most Recently Relevant to Health Maintenance Insurance CARE Member Subscriber Plan / Payer (Ef fective 2013-Present) Name:Rachel Galvan Relation to Subscriber:Self Name:Rachel Galvan Payer ID:[id number] (NAIC) Type:PPO Address: [place] [phone] Care Teams Bituminous Distributor Operator Relationship Specialty Start Date End Date Jacques Holguin DO [address] [place] [address] PCP - General Internal Medicine 06/03/24 Kayode Brizuela MD [address] [place] [address] Collaborating Physician Dermatology 09/12/19
--- OUTSIDE RECORDS SUMMARY | 2025-02-01 07:00 | XMS_ITS | Encounter Summary ---
Author Organization [facility] Address [address] [place] [address] Care Team Providers Care School Curriculum Developer Name Role Phone Sawyer Gardner PA-C Primary Care Provide r Kayode Brizuela MD Unavailable [phone] Jacques Holguin DO Primary Care Provider [phone] Reason for Visit * Reason Onset Date Comments MEDICATION REFILL 07/14/2020 Encounter Details Date Type Department Care Team (Late st Contact Info) Description 07/14/2020 Refill [facility] [address] [place] [address], [place] [phone] Floridalma Gonzalez MD [address] [place] [address] [address] [place] [phone] MEDICATION REFILL Social History Tobacco Use Types [...] on file Legal Sex Female 6:12 AM LIVING SKILLS ADVISOR Gender Identity Not on file Sexual Orientation Not on file documented as of this encounter Plan of Treatment Upcoming Encounters Date Type Department Care Team (Late st Contact Info) Description 03/03/2025 11:30 AM CDT Office Visit [facility] Derm[facility] [address] [place] [phone] Floridalma Gonzalez MD [address] [place] [address] [place] [phone] 06/02/2025 10:00 AM LIVING SKILLS ADVISOR Office [facility] [address] [place] [phone] Floridalma Gonzalez MD [address] [place] [address] [place] [phone] documented as of this encounter Visit Diagnoses Diagnosis Dermatomyositis (HCC) Dermatomyositis documented in this encounter Care Teams School Curriculum Developer Relationship Specialty Start Date End Date Sawyer Gardner PA-C [address] [place] [address] PCP - General 09/11/19 06/02/24 Jacques Holguin DO [address] [place] [address] PCP - General Internal Medicine 06/03/24 Kayode Brizuela MD [address] [place] [address] Collaborating Physician Dermatology 09/12/19 documented as of this encounter
--- OUTSIDE RECORDS SUMMARY | 2025-02-01 07:00 | XMS_ITS | Data Portability ---
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 Referral None recorde d. Procedures None recorde d. Surgeries None recorde d. Imaging MAMMO, screeni ng, digital , bilater al 2023 024 [facility], [address], [place], [address], 03/19/2024 09:35:57 US, pelvis 2022 023 [email or web address] [place], [address], [address], [place], [address], 01/10/2023 22:05:56 US, transva ginal 2022 023 LINA [place], [address], [address], [place], [address], 07/16/2023 05:01:08 MAMMO, screeni ng, bilater al [address], [address], [address], [place], [address], 08/01/2023 15:15:27 US, pelvis, complet e [address], [address], [place], [address], 10/26/2023 15:57:06 US, pelvis [address], [address], [address], [place], [address], 11/01/2021 19:20:42 US, transva ginal [address], [facility] [address], [place], [address], 11/01/2021 19:20:42 Medication Orders None recorde d. Patient TargetsNo targets recorded. Patient InstructionsNo instructions recorded. Reason for Referral None Reported. Results Created Date Observation Date Name Description Value Unit Range Abnormal Flag Note LastModifiedBy Organization Detail LastModifiedTime 11/02/19 22 11/01/2021 US, pelvi s No observ ation record ed. [email or web address] [place] [address], [place], [address], 11/01/2021 13:17:45 11/02/19 22 11/01/2021 US, trans vagin al No observ ation record ed. [email or web address] [place] [address], [place], [address], 11/01/2021 13:17:56 11/02/19 22 11/01/2021 US, pelvi s No observ ation record ed. LINA [address], [place], [address], 11/15/2021 09:55:55 12/31/19 MAMMO , scree damon, bilat eral No observ ation record ed. [facility] [address], [place], [address], 01/23/2022 19:16:31 01/11/20 23 01/10/2023 US, pelvi s No observ ation record ed. [email or web address] [place] [address], [place], [address], 01/10/2023 10:51:45 01/11/20 23 01/10/2023 US, trans vagin al No observ ation record ed. [facility] [address], [place], [address], 01/24/2023 16:25:32 01/11/20 23 01/10/2023 US, pelvi s No observ ation record ed. LINA [address], [place], [address], 01/24/2023 16:24:11 03/19/20 24 03/19/2024 MAMMO , scree damon, digit al, bilat eral No observ ation record ed. [facility] [address], [place], [address], 03/19/2024 20:58:54 Result Notes None recorded. Problems Name Problem SNOMED Code Status Onset Date Resolution Date Notes Provider Name and Address Organization Details Recorded Time Screenin g for malignan t neoplasm of rectum Completed 201009/04/2021 Screenin g for malignan t neoplasm s of the rectum;R ecorded Elsewher e: No [facility] EHR Radiator Repairer francisco: N Violettati ce ID: 0001 Vicente lable Time: 08:30:00 AM Dana crespo, [facility] 2 12:49:49 Adult health examinat ion Completed 201009/04/2021 Routine Medical Exam;Rec orded Elsewher e: No Locat ion: [facility] S ource: EHR Radiator Repairer francisco: N Violettati ce ID: 0001 Vicente lable Time: 08:30:00 AM Dana crespo, [facility] 2 12:48:57 Speciali zed medical examinat ion Completed 201009/04/2021 Gynecolo gical Examinat ion;Jose rded Elsewher e: No Locat ion: [facility] S ource: EHR Radiator Repairer francisco: N Chris ce ID: 0001 Vicente lable Time: 08:30:00 AM Dana crespo [facility] 2 12:49:56 Screenin g for malignan t neoplasm of cervix Completed 201009/04/2021 Screenin g for malignan t neoplasm s of the cervix;R ecorded Elsewher e: No Locat ion: [facility] S ource: EHR Radiator Repairer francisco: N Violettati ce ID: 0001 Vicente lable Time: 08:30:00 AM Dana crespo, [facility] 2 12:49:47 Microsco pic hematuri a [id number] Completed 201209/04/2021 MICROSCO PIC HEMATURI A;Record ed Elsewher e: No Locat ion: [facility] S ource: EHR Radiator Repairer francisco: N Violettati ce ID: 0001 Vicente lable Time: 08:15:00 AM Dana crespo [facility] 2 12:49:[address] Concept Completed 201409/04/2021 Encntr for urogynaecologist exam (general ) (routine ) w/o abn findings ;Recorde d Elsewher e: No Locat ion: Georgina diamond [facility] S ource: EHR Radiator Repairer francisco: N Practi ce ID: 0001 Vicente lable Time: 02:30:00 PM Dana crespo [facility] [address] 12:49:[address] Concept Completed 201709/04/2021 Encntr for general adult medical exam w/o abnormal findings ;Recorde d Elsewher e: No Locat ion: [place]ina diamond [facility] S ource: EHR Radiator Repairer francisco: N Practi ce ID: 0001 Vicente lable Time: 09:30:00 AM Dana Tejada [facility], [facility] 2 12:49:52 Evaluati on finding Completed 201709/04/2021 Hematuri a, unspecif ied;Jose rded Elsewher e: No Locat ion: Kendrick dara [facility] S ource: EHR Radiator Repairer francisco: N Practi ce ID: 0001 Vicente lable Time: 09:30:00 AM Dana Tejada [facility] 2 12:49:[address] Concept Completed 201709/04/2021 Encounte r for general adult medical exam w abnormal findings ;Practic e ID: 0001 Dana crespo [facility] 2 12:49:44 Evaluati on finding Completed 201709/04/2021 Unsp abnormal cytolog findings in specmn from cervix uteri;Re corded Elsewher e: No [facility]: EHR Radiator Repairer francisco: N Practi ce ID: 0001 Vicente lable Time: 12:45:31 PM Dana crespo [facility] 2 12:49:02 Vaginal vault smear result - finding [id number] Completed 201709/04/2021 Other abnormal cytologi pau findings on specimen s from vagina;R ecorded Elsewher e: No Locat ion: [facility] S ource: EHR Radiator Repairer francisco: N Chris ce ID: 0001 Vicente lable Time: 01:45:00 PM Dana crespo [facility] 2 12:49:58 Low grade squamous intraepi thelial lesion on cervical Papanico laou smear [id number] 105 Completed 201809/04/2021 Low grade intrepit h lesion cyto smr crvx (LGSIL); Recorded Elsewher e: No Locat ion: [facility] S ource: EHR Radiator Repairer francisco: N Chris ce ID: 0001 Vicente lable Time: 08:15:00 AM Dana crespo [facility] 2 12:49:39 Glycosur ia [id number] Completed 201909/04/2021 Glycosur ia;Recor ded Elsewher e: No Locat ion: [facility] S ource: EHR Radiator Repairer francisco: Augustus Perez ce ID: 0001 Vicente lable Time: 08:15:00 AM Dana crespo [facility] 2 12:49:04 Problem Notes None recorded. Procedures Surgical History Date Name Laterality Status Provider Name and Address Organization Details Recorded Time 12/31/19 Date of Last Mammogram completed Judy Matamoros [facility] 01/06/2023 09:33:50 09/29/19 22 Date of Last Pap Smear completed Deanna Henderson [facility] 11/01/2021 12:26:27 04/16/20 19 Xcapsl ctrc rmvl cplx wo ecp completed Dana Tejada [facility] 09/04/2021 12:53:23 09/11/19 18 Colposcopy completed Dana Tejada [facility] 09/03/2021 18:16:46 07/17/19 10 [facility] 09/04/2021 12:53:27 07/17/18 68 open reduction maxillary fracture completed Dana [facility] 09/04/2021 12:54:04 Colposcopy completed [facility] 09/28/2021 13:11:49 Partial Hysterectomy completed [facility] 09/28/2021 13:11:49 Imaging Results None [...] Prescrib ed Elsewher e: Yes Loca tion: [facility] odify By: rahul bills DateTime : 05/24/20 12 08:30:00 AM Not Available Not Available Not Available prednison e 5 mg tablet take 1 tablet by oral route every day 09/24 completed Prescrib ed Elsewher e: Yes Loca tion: [facility] odify By: mona reza DateTime : 09/16/19 08:15:00 AM Not Available Not Available Not Available folic acid 20 mg capsule 09/24 completed Prescrib ed Elsewher e: Yes Loca tion: [facility] odify By: mona reza DateTime : 09/16/19 08:15:00 AM Not Available Not Available Not Available Alexis Low Dose Aspirin 81 mg tablet,de layed release take 1 tablet by oral route every day 09/24 completed Prescrib ed Elsewher e: Yes Loca tion: [place] [place] [facility] odify By: rahul bills DateTime : 05/24/20 08:30:00 AM Not Available Not Available Not Available azathiopr ine 50 mg tablet TAKE 3 TABLETS BY MOUTH DAILY 01/06 completed Not Available Not Available Not Available acyclovir 400 mg tablet TAKE 1 TABLET BY MOUTH THREE TIMES DAILY 02/19 completed Not Available Not Available Not Available Vitamins B Complex capsule 09/15 completed Prescrib ed Elsewher e: Yes Loca tion: [place]ina [place] [facility] odify By: mona reza DateTime : 05/24/20 08:30:00 AM Not Available Not Available Not Available triamcino lone acetonide 0.1 % topical cream APPLY TOPICALL Y TO THE AFFECTED AREA ON BODY TWICE DAILY 09/28 completed Not Available Not Available Not Available FiberCon 625 mg tablet active Prescrib ed Elsewher e: Yes Loca tion: [place] [facility] odify By: elisa Licona ntgi DateTime : 05/15/20 11 03:06:41 PM Not Available Not Available Not Available methotrex ate sodium 2.5 mg tablet take 1 tablet by oral route every week 09/24 completed Prescrib ed Elsewher e: Yes Loca tion: [place] [facility] odify By: mona reza DateTime : 09/16/19 08:15:00 AM Not Available Not Available Not Available Flagyl 500 mg tablet take 1 tablet (500MG) by oral route 2 times every day 05/24 completed Prescrib ed Elsewher e: No Locat ion: [place] [place] [facility] odify By: rahul bills DateTime : 05/30/20 09:55:49 AM Not Available Not Available Not Available tobramyci n 0.3 % eye drops INSTILL 1 DROP IN EACH EYE EVERY 4 HOURS FOR 7 DAYS 01/06 completed Not Available Not Available Not Available hydroxych loroquine 200 mg tablet take 1 tablet by oral route every day 09/24 completed Prescrib ed Elsewher e: No Locat ion: [place] [place] [facility] odify By: mona reza DateTime : 09/16/19 08:15:00 AM Not Available Not Available Not Available Vitamin D2 1,250 mcg (50,000 unit) capsule take 1 capsule (47931JO ITS) by oral route every week 09/15 completed Prescrib ed Elsewher e: Yes Loca tion: [place] [facility] odify By: mona reza DateTime : 05/24/20 12 08:30:00 AM Not Available Not Available Not Available multivita min capsule take 1 capsule by oral route every day 09/15 completed Prescrib ed Elsewher e: Yes [facility] By: moan reza DateTime : 06/05/20 14 03:30:00 PM Not Available Not Available Not Available Stanback Headache Powder 650 mg oral packet 05/24 completed Prescrib ed Elsewher e: Yes [facility] od[facility] By: rahul bills DateTime : [...] Prescrib ed Elsewher e: Yes [facility] By: mona reza DateTime : 05/19/20 11 08:30:00 AM Not Available Not Available Not Available Dexilant 30 mg capsule, delayed release take 1 capsule by oral route every day 09/15 completed Prescrib ed Tammie e: Yes Loca tion: [facility] M odify By: mona reza DateTime : 05/19/20 08:30:00 AM Not Available Not Available Not Available Multi Vitamin active Not Available Not Available Not Available Vitals Date Recorded Body height Body mass index (BMI) Body weight Systolic And Diastolic Provider Name and Address Organization Details Last Updated DateTime 11/02/2021 159.39 cm 33.9 kg/m2 86358.83 g 126/78 mm[Hg] Deanna Henderson [facility] 11/02/2021 09:41:18 Date Recorded Body height Body mass index (BMI) Body weight Systolic And Diastolic Provider Name and Address Organization Details Last Updated DateTime 01/06/2023 159.39 cm 34.1 kg/m2 99876.14 g 125/79 mm[Hg] Judy Matamoros [facility] 01/06/2023 09:32:56 Date Recorded Body height Body mass index (BMI) Body weight Systolic And Diastolic Provider Name and Address Organization Details Last Updated DateTime 02/20/2024 159.39 cm 34.2 kg/m2 10544.02 g 120/79 mm[Hg] Liset Hodges [facility] 02/20/2024 09:37:00 Social History Question Answer Notes LastModified by Organizat ion Details LastModified Time Tobacco Smoking Status Never Smoker Kateryna crespo, [facility] 09/28/2021 13:00:18 Do You Have An Advance Directive? No [email or web address] Information n ot available 09/04/2021 Are You Blind Or Do You Have Difficulty Seeing? No [email or web address] Information n ot available 09/04/2021 What Is Your Level Of Caffeine Consumption? Occasional Information not available 09/23/2020 How Much Tobacco Do You Chew? None [email or web address] Information not available 09/04/2021 In The 14 Days Before Symptom Onset, Have You Had Close Contact With A Laboratory-confirm ed COVID-19 While That Case Was Ill? No Information n ot available 09/04/2021 In The 14 Days Before Symptom Onset, Have You Had Close Contact With A Person Who Is Under Investigation For COVID-19 While That Person Was Ill? No Information not available 09/04/2021 Have You Been To An Area Known To Be High Risk For COVID-19? No [email or web address] Information not available 09/04/2021 Are You Deaf Or Do You Have Serious Difficulty Hearing? No [email or web address] Information not available 09/04/2021 What Type Of Diet Are You Following? REGULAR [email or web address] Information n ot available 09/04/2021 What Is The Highest Grade Or Level Of School You Have Completed Or The Highest Degree You Have Received? [id number] Information not available 09/04/2021 Do You Use Protection During Sex? No [email or web address] Information not available 09/04/2021 Do You Use Your Seat Belt Or Car Seat Routinely? Yes [email or web address] Information not available 09/04/2021 Do You Have Smoke And Carbon Monoxide Detectors In Your Home? Yes [email or web address] Information not available 09/04/2021 How Much Tobacco Do You Smoke? No [email or web address] Information not available 09/04/2021 Do You Use Sunscreen Routinely? Yes [email or web address] Information not available 09/04/2021 Has Tobacco Cessation Counseling Been Provided? No Information not available 09/28/2021 Have You Used IV Drugs? No [email or web address] Information not available 09/04/2021 Do You Have [...] 09/23/2020 Are you able to walk? YESWOREST [email or web address] Information not available 09/04/2021 Are you able to care for yourself? Yes Information n ot available 09/28/2021 What is your occupation? [employer] [email or web address] Information not available 09/04/2021 Do you have difficulty dressing or bathing? No Information not available 09/28/2021 What is your exercise level? Occasional [email or web address] Information not available 09/04/2021 Mental Status Question Answer Note LastModified by Organization D etails LastModified Time Do you feel stressed (tense, restless, nervous, or anxious, or unable to sleep at night)? [id number] [email or web address] Information not available 09/04/2021 Family History Relationship [...] 2021 13:00:17 Mother Disorder of thyroid gland Not available 2021 12:29:40 Brother Diabetes mellitus Not available 2020 11:49:21 Maternal Aunt Diabetes mellitus Not available 2020 11:49:21 Maternal Aunt Carcinoma in situ of breast Not available 2021 13:00:18 Medical History Condition Response Allergies (Food, seasonal, environmental ) N Other N Drug/Latex Allergies/Reactions N Blood Transfusion N Breast Cancer N Dermatologic Disorders Y Lung Disease N Defects or Inherited Disease N Breast Problem N Gestational Diabetes N Hematologic disorders N Anesthesia Complications N History of STI N Deep Vein Thrombosis N Polycystic ovary syndrome N Anxiety Disorder N Autoimmune disease Y Arthritis N Polyps N Infertility N Acid Reflux (GERD) N History of abnormal pap Y Cancer N Varicosities N Stroke N Neurologic/Epilepsy Y Endometriosis N High Cholesterol N Fibromyalgia N Headaches N Kidney Disease N Heart Problems N Thyroid Problems N Kidney or Bladder Problems N GI Problems N Eating Disorder [...] SNOMED-CT Code Diagnosis ICD10 Code Diagnosis Note [id number] Jessica Flores [facility] [address] [address] 09/24/2020 09:16:55 09/24/2020 10:25:57 Gynecologic examination [id number] Z01.419 Take Calcium with Vitamin D 12-1500mg daily. Do monthly self breast exams. It is advised to get annual flu shot in the fall and she could obtain at [facility] or [facility] care clinic. If you haven't received the [...] by PCP Dexa UTD 2020 [place]nl [place] PCP [id number] Jessica Flores [facility] [address] [address] 09/04/2021 12:28:42 09/06/2021 10:29:55 Screening for malignant neoplasm of ovary 383096723 Z12.73 Today we discussed the followin. Adding [...] this patient s visit, including available hand director of retention upon arrive, temperatur e check and being asked a series of screening questions. All staff wore face coverings during this encounter, as well as provided additional cleaning and sanitizing of all surfaces, including countertop s, pens, chairs, door handles, light switches, etc, prior to and following the patient s visit. [id number] Jessica Flores , [facility] [address] [address] 09/28/2021 12:58:02 09/28/2021 14:23:16 Gynecologic examination 81326623 Z01.419 Take Calcium with Vitamin D 12-1500mg daily. Do monthly self breast exams. It is advised to get annual flu shot in the fall and she could obtain at [facility] or [facility] clinic. If you haven't received the Tdap [...] by PCP Dexa UTD 2020 wnl by PCPJennifer genetic screening discussed & accepted. Coming for US for ovarian cancer screening- we previously talked about it. [id number] Cristo Serrano MD [place] [address] [address] 11/01/2021 09:52:17 11/01/2021 12:22:09 Screening for malignant neoplasm of ovary 810996147 Z12.73 [id number] Jessica Flores [facility] [address],[place] [address] 11/02/2021 09:26:32 11/02/2021 09:56:34 Family history of malignant neoplasm of ovary in first degree relative 4475117715 106 Z80.41 TVUS results reviewedCo py given for PCPWNLAll questions answered to patient satisfacti on.Will consider q1-2yrs US screening for ovarian cancer.Thi s is determined on case by case basis which patient understand s.NO concerns at this time. Time spent in visit is a total of 15 mins with at least 50% of visit consisting of counseling and review of plan of care. [id number] Jessica Flores [facility] [address],[place] [address] 01/06/2023 09:19:27 01/06/2023 12:58:36 Gynecologic examination 17137439 Z01.419 Z11.51 Take Calcium with Vitamin D 12-1500mg daily. Do monthly self breast exams. It is advised to get annual flu shot in the fall and [facility]. If you haven't received the Tdap [...] y UTD wnl by PCP Nitin UTD 2019 wnl by PCPComing for US for ovarian cancer screening- we previously talked about it. Screening mammography 24 143342 Z12.31 Screening for malignant neoplasm of ovary 726244590 Z12.73 Today we reviewed previously discussed informatio [...] up ovarian cancer for more informatio n). [id number] Cristo Serrano MD [place] [address] [address] 01/10/2023 09:22:29 01/10/2023 10:34:46 Screening procedure 89339273 Z12.73 [id number] LETTY HALEY MD [place] [address] [address] 02/20/2024 09:14:13 02/20/2024 10:12:04 Screening mammography 43222247 Z12.31 Gynecologi c examination 36957923 Z01.419 Well woman care- Cervical cancer screening: Pap smear not indicated (next 09/2026)- Breast cancer screening: mammogram ordered- HPV immunizati on: does not qualify- STD testing: declined- hereditary cancer screening: does not qualify for testing Dermatomyositis 11610630 8 M33.90 - in remission per patient, following with derm- discussed increased risk of multiple cancers after diagnosis, including ovarian- plan for q2 year pelvic US or sooner if symptoms develop Health Concerns Section Related Observation LastModified by Organization Detai ls LastModified Time None Recorded Concern Status LastModified by Organization Details LastModified Time None Recorded Advance Directives Directive N: Payers Insurance Date Sequence Insurance Name Policy Number Policy Cerda Covered Member ID Cerda Member ID Guarantor Name 02/23/2024 1 [facility] [id number] Rachel Galvan [id number] Rachel Galvan Notes Date Note Type Note Provider Name and Address Organization Details Recorded Time 11/02/2021 text/html Here today for U S f/u. Jessica Flores, CORN[place]- [address], [place], [address], [facility] 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 01/06/2023 12:24:18 02/20/2024 text/html Presents today for her annual well-woman exam. Denies abnormal vaginal discharge. She is sexually active and denies dyspareunia. She has not noticed any changes or masses in her breasts. Hx of dermatomyositis, follows with dermatology. Has increased risk of cancers including ovarian cancer. Completing screening with pelvic US q2 years. LETTY HALEY MD [address], [place], [address], [facility] 02/20/2024 10:06:23 OBGyn Episode Ob Episode Information Episode Created Date Number of Fetuses Patient Bloodtype Patient rh Status Prepregnancy Weight lbs Domestic Partner Domestic Partner Phone Father Name Member Service Representative Status 09/24/19 21 1 CLOSED Fetus Data [...] Domestic Partner Domestic Partner Phone Father Name Member Service Representative Status 09/24/19 21 1 CLOSED Fetus Data [...] Domestic Partner Domestic Partner Phone Father Name Member Service Representative Status 09/24/19 21 1 CLOSED Fetus Data [...]
[2025-02-01 08:32] LABS: Hemoglobin A1C 7.2 % (<5.7)
[2025-02-01 08:39] LABS: Cholesterol 194 mg/dL (0-200); HDL Direct 101 mg/dL; Triglycerides 84 mg/dL (<150)
== END 2025-02-01 06:58 | disposition home or self-care (01) ==
LOC: ANHLAB 06:59
PROVIDERS: PCP Internal Medicine; Visit Provider Internal Medicine
DX: E11.9 Type 2 diabetes mellitus without complications (principal); E78.5 Hyperlipidemia, unspecified
CPT/HCPCS: 36415; 80061; 83036

== ENCOUNTER 2025-03-18 07:53 | Outpatient (RCR) | payer OTHER, SELFPAY ==
[2024-12-19 15:19] LABS: Hematocrit 39.5 % (37.0-47.0); Hemoglobin 13.1 g/dL (12.0-15.0); Immature Granulocyte Percent A 0.2 % (0-0.5); Lymphocytes Absolute Auto 1.43 K/mm3 (0.9-3.2); Mean Corpuscular HGB Conc 33.2 g/dl (32-36); Mean Corpuscular Hemoglobin 31.0 pg (26-34); Mean Corpuscular Volume 93.6 fl (80-100); Nucleated Red Blood Cells Absolute Auto 0.000 K/mm3 (0.0-0.012); Nucleated Red Blood Cells Perc 0.0 % (0.0-0.2); Platelet Count Result 214 k/mm3 (150-375); Red Blood Count 4.22 M/mm3 (4.2-5.4); White Blood Count 5.5 K/mm3 (4.5-10.0)
[2024-12-19 16:37] LABS: Alanine Aminotransferase 23 U/L (6-35); Albumin Level 4.4 g/dL (3.5-5.1); Alkaline Phosphatase 81 U/L (38-126); Anion Gap 8 mmol/L (4-12); Aspartate Amino Transferase 35 U/L (14-36); Bilirubin,Total 0.4 mg/dL (0.2-1.3); Blood Urea Nitrogen 25 mg/dL (7-17); Calcium 9.4 mg/dL (8.4-10.2); Carbon Dioxide 23 mmol/L (22-30); Chloride 105 mmol/L (98-107); Estimated Glomerular Filt Rate > 60; Glucose 115 mg/dL (65-110); Potassium 3.8 mmol/L (3.4-5.0); Sodium 136 mmol/L (137-145); Total Protein 6.9 g/dL (6.3-8.2)
[2025-01-02 15:02] LABS: Hematocrit 39.1 % (37.0-47.0); Hemoglobin 12.7 g/dL (12.0-15.0); Immature Granulocyte Percent A 0.6 % (0-0.5); Lymphocytes Absolute Auto 1.25 K/mm3 (0.9-3.2); Mean Corpuscular HGB Conc 32.5 g/dl (32-36); Mean Corpuscular Hemoglobin 31.1 pg (26-34); Mean Corpuscular Volume 95.8 fl (80-100); Nucleated Red Blood Cells Absolute Auto 0.000 K/mm3 (0.0-0.012); Nucleated Red Blood Cells Perc 0.0 % (0.0-0.2); Platelet Count Result 225 k/mm3 (150-375); Red Blood Count 4.08 M/mm3 (4.2-5.4); White Blood Count 8.9 K/mm3 (4.5-10.0)
[2025-01-02 15:06] LABS: Alanine Aminotransferase 26 U/L (6-35); Albumin Level 4.1 g/dL (3.5-5.1); Alkaline Phosphatase 72 U/L (38-126); Anion Gap 7 mmol/L (4-12); Aspartate Amino Transferase 31 U/L (14-36); Bilirubin,Total 0.4 mg/dL (0.2-1.3); Blood Urea Nitrogen 19 mg/dL (7-17); Calcium 9.2 mg/dL (8.4-10.2); Carbon Dioxide 27 mmol/L (22-30); Chloride 102 mmol/L (98-107); Estimated Glomerular Filt Rate > 60; Glucose 203 mg/dL (65-110); Potassium 4.2 mmol/L (3.4-5.0); Sodium 136 mmol/L (137-145); Total Protein 6.6 g/dL (6.3-8.2)
[2025-01-16 14:26] LABS: Hematocrit 39.2 % (37.0-47.0); Hemoglobin 12.8 g/dL (12.0-15.0); Immature Granulocyte Percent A 0.5 % (0-0.5); Lymphocytes Absolute Auto 1.51 K/mm3 (0.9-3.2); Mean Corpuscular HGB Conc 32.7 g/dl (32-36); Mean Corpuscular Hemoglobin 30.8 pg (26-34); Mean Corpuscular Volume 94.2 fl (80-100); Nucleated Red Blood Cells Absolute Auto 0.000 K/mm3 (0.0-0.012); Nucleated Red Blood Cells Perc 0.0 % (0.0-0.2); Platelet Count Result 230 k/mm3 (150-375); Red Blood Count 4.16 M/mm3 (4.2-5.4); White Blood Count 6.6 K/mm3 (4.5-10.0)
[2025-01-16 14:39] LABS: Alanine Aminotransferase 26 U/L (6-35); Albumin Level 4.4 g/dL (3.5-5.1); Alkaline Phosphatase 77 U/L (38-126); Anion Gap 7 mmol/L (4-12); Aspartate Amino Transferase 32 U/L (14-36); Bilirubin,Total 0.5 mg/dL (0.2-1.3); Blood Urea Nitrogen 13 mg/dL (7-17); Calcium 9.5 mg/dL (8.4-10.2); Carbon Dioxide 24 mmol/L (22-30); Chloride 105 mmol/L (98-107); Estimated Glomerular Filt Rate > 60; Glucose 122 mg/dL (65-110); Potassium 3.9 mmol/L (3.4-5.0); Sodium 136 mmol/L (137-145); Total Protein 7.0 g/dL (6.3-8.2)
[2025-01-30 14:31] LABS: Hematocrit 38.1 % (37.0-47.0); Hemoglobin 12.9 g/dL (12.0-15.0); Immature Granulocyte Percent A 0.4 % (0-0.5); Lymphocytes Absolute Auto 1.03 K/mm3 (0.9-3.2); Mean Corpuscular HGB Conc 33.9 g/dl (32-36); Mean Corpuscular Hemoglobin 31.5 pg (26-34); Mean Corpuscular Volume 93.2 fl (80-100); Nucleated Red Blood Cells Absolute Auto 0.000 K/mm3 (0.0-0.012); Nucleated Red Blood Cells Perc 0.0 % (0.0-0.2); Platelet Count Result 243 k/mm3 (150-375); Red Blood Count 4.09 M/mm3 (4.2-5.4); White Blood Count 4.5 K/mm3 (4.5-10.0)
[2025-01-30 15:58] LABS: Alanine Aminotransferase 21 U/L (6-35); Albumin Level 4.1 g/dL (3.5-5.1); Alkaline Phosphatase 72 U/L (38-126); Anion Gap 9 mmol/L (4-12); Aspartate Amino Transferase 32 U/L (14-36); Bilirubin,Total 0.5 mg/dL (0.2-1.3); Blood Urea Nitrogen 17 mg/dL (7-17); Calcium 9.9 mg/dL (8.4-10.2); Carbon Dioxide 25 mmol/L (22-30); Chloride 103 mmol/L (98-107); Estimated Glomerular Filt Rate > 60; Glucose 133 mg/dL (65-110); Potassium 3.5 mmol/L (3.4-5.0); Sodium 137 mmol/L (137-145); Total Protein 6.8 g/dL (6.3-8.2)
[2025-02-13 09:29] LABS: Hematocrit 38.5 % (37.0-47.0); Hemoglobin 12.9 g/dL (12.0-15.0); Immature Granulocyte Percent A 0.2 % (0-0.5); Lymphocytes Absolute Auto 1.15 K/mm3 (0.9-3.2); Mean Corpuscular HGB Conc 33.5 g/dl (32-36); Mean Corpuscular Hemoglobin 31.3 pg (26-34); Mean Corpuscular Volume 93.4 fl (80-100); Nucleated Red Blood Cells Absolute Auto 0.000 K/mm3 (0.0-0.012); Nucleated Red Blood Cells Perc 0.0 % (0.0-0.2); Platelet Count Result 214 k/mm3 (150-375); Red Blood Count 4.12 M/mm3 (4.2-5.4); White Blood Count 4.8 K/mm3 (4.5-10.0)
[2025-02-13 09:56] LABS: Alanine Aminotransferase 17 U/L (6-35); Albumin Level 4.1 g/dL (3.5-5.1); Alkaline Phosphatase 68 U/L (38-126); Anion Gap 6 mmol/L (4-12); Aspartate Amino Transferase 31 U/L (14-36); Bilirubin,Total 0.3 mg/dL (0.2-1.3); Blood Urea Nitrogen 17 mg/dL (7-17); Calcium 9.4 mg/dL (8.4-10.2); Carbon Dioxide 25 mmol/L (22-30); Chloride 105 mmol/L (98-107); Estimated Glomerular Filt Rate > 60; Glucose 133 mg/dL (65-110); Potassium 4.0 mmol/L (3.4-5.0); Sodium 136 mmol/L (137-145); Total Protein 6.6 g/dL (6.3-8.2)
[2025-02-27 10:07] LABS: Hematocrit 38.7 % (37.0-47.0); Hemoglobin 12.9 g/dL (12.0-15.0); Immature Granulocyte Percent A 0.5 % (0-0.5); Lymphocytes Absolute Auto 1.22 K/mm3 (0.9-3.2); Mean Corpuscular HGB Conc 33.3 g/dl (32-36); Mean Corpuscular Hemoglobin 31.1 pg (26-34); Mean Corpuscular Volume 93.3 fl (80-100); Nucleated Red Blood Cells Absolute Auto 0.000 K/mm3 (0.0-0.012); Nucleated Red Blood Cells Perc 0.0 % (0.0-0.2); Platelet Count Result 198 k/mm3 (150-375); Red Blood Count 4.15 M/mm3 (4.2-5.4); White Blood Count 4.4 K/mm3 (4.5-10.0)
[2025-03-18 09:29] LABS: Hematocrit 41.5 % (37.0-47.0); Hemoglobin 13.5 g/dL (12.0-15.0); Immature Granulocyte Percent A 0.5 % (0-0.5); Lymphocytes Absolute Auto 1.05 K/mm3 (0.9-3.2); Mean Corpuscular HGB Conc 32.5 g/dl (32-36); Mean Corpuscular Hemoglobin 31.1 pg (26-34); Mean Corpuscular Volume 95.6 fl (80-100); Nucleated Red Blood Cells Absolute Auto 0.000 K/mm3 (0.0-0.012); Nucleated Red Blood Cells Perc 0.0 % (0.0-0.2); Platelet Count Result 210 k/mm3 (150-375); Red Blood Count 4.34 M/mm3 (4.2-5.4); White Blood Count 4.0 K/mm3 (4.5-10.0)
[2025-03-18 09:48] LABS: Alanine Aminotransferase 15 U/L (6-35); Albumin Level 4.4 g/dL (3.5-5.1); Alkaline Phosphatase 66 U/L (38-126); Anion Gap 9 mmol/L (4-12); Aspartate Amino Transferase 32 U/L (14-36); Bilirubin,Total 0.3 mg/dL (0.2-1.3); Blood Urea Nitrogen 15 mg/dL (7-17); Calcium 9.1 mg/dL (8.4-10.2); Carbon Dioxide 24 mmol/L (22-30); Chloride 107 mmol/L (98-107); Estimated Glomerular Filt Rate > 60; Glucose 163 mg/dL (65-110); Potassium 4.2 mmol/L (3.4-5.0); Sodium 140 mmol/L (137-145); Total Protein 6.8 g/dL (6.3-8.2)
== END 2025-03-19 23:59 | disposition home or self-care (01) ==
LOC: ANHLAB 07:53
PROVIDERS: PCP Internal Medicine; Visit Provider Dermatology
DX: Z51.81 Encounter for therapeutic drug level monitoring (principal); Z79.899 Other long term (current) drug therapy
CPT/HCPCS: 36415; 80053; 85025

== ENCOUNTER 2025-03-18 07:54 | Outpatient (CLI) | payer OTHER, SELFPAY ==
--- OUTSIDE RECORDS SUMMARY | 2025-03-18 08:01 | XMS_ITS | Clinical Summary ---
Author Organization [facility] Address [address] [facility] [place] [address] Care Team Providers Care Music Educator Name Role Phone Kayode Brizuela MD Unavailable [phone] Jacques Holguin DO Primary Care Provider [phone] Source Comments [facility],non-owned Affiliates and Associated Physician Practices is amultiple site organization consisting of ambulatory clinics and hospital sitesin [place], [place], [place] and [place]. This disclosure is being madepursuant to the Care Everywhere program and may not contain all information available regarding this patient. Last updated 18.[facility] Allergies No known active allergies Medications * [...] 1 capsule by mouth once daily Active prednisoLONE acetate (PRED FORTE) 1 % [...] day supply. 80 g 5 4 Active clobetasol (Temovate) 0.05 % solutionIndicatio ns:Dermatomyositi s (HCC) Apply to the scalp nightly. 30 days supply. Put on at night and wash your hair in the morning (on the scalp for 6-8 hours) 50 mL 3 5 Active azaTHIOprine (Imuran) 50 MG tabletIndications :Dermatomyositis (HCC) Take 2 tablets in the morning and 1 tablet in the evening. 90 tablet 5 5 Active hydroxychloroquin e (Plaquenil) 200 MG tabletIndications :Dermatomyositis (HCC) Take 1 (one) tablet by mouth 2 times daily 60 tablet 5 5 Active hydrocortisone (Hytone) 2.5 % creamIndications: Dermatomyositis (HCC),Rash and other nonspecific skin eruption Apply to rash on face twice daily. 30 days supply. 30 g 5 Active hydrocortisone (HYTONE) 2.5 % creamIndications: Rash and other nonspecific skin eruption Apply to rash on face twice daily. 30 days supply. 30 g 0 025 Discontin ued(Reord er) azaTHIOprine (Imuran) 50 MG tabletIndications :Dermatomyositis (HCC) TAKE 1 TABLET BY MOUTH TWICE DAILY 180 tablet 1 5 025 Discontin ued(Reord er) Active Problems Problem Noted Date Diagnosed Date [...] PRN Assessment & Plan (09/16/2020 5:24 PM VP INFORMATION TECHNOLOGY): Status: better controlled, still active -Increase azathioprine [...] today Assessment & Plan (09/16/2020 4:19 PM VP INFORMATION TECHNOLOGY): - CBC, CMP Q2w ORDERED; provided paper orders Encounters Date Type Department Care Team Description 03/14/2025 Orders Only [facility] [address] [place] [phone] Floridalma Gonzalez MD High risk medication use 03/03/2025 11:30 AM CDT Office Visit [facility] [address] [place] [phone] Floridalma Gonzalez MD Dermatomyositis (HCC) (Primary Dx); High risk medication use; Rash and other nonspecific skin eruption 03/03/2025 Travel 02/08/2025 Refill [facility] [address] [place] [phone] Floridalma Gonzalez MD Refill Request 01/13/2025 Refill [facility] [address] [facility], [place] [address] Floridalma Gonzalez MD Refill Request 12/18/2024 2:00 PM CDT Office Visit [facility] [address] [place] [address] Floridalma Gonzalez MD Dermatomyositis (HCC) (Primary Dx); High risk medication use; Melanocytic nevi of trunk; Solar lentiginosis; Xerosis cutis; Medication monitoring encounter 12/18/2024 Travel from Last 3 Months Immunizations Immunization Administration [...] on file Legal Sex Female 6:12 AM VP INFORMATION TECHNOLOGY Gender Identity Not on file Sexual Orientation [...] Care Team (Late st Contact Info) Description 06/02/2025 10:00 AM VP INFORMATION TECHNOLOGY Office Visit [facility] [address] [place] [address], [place] [address] Floridalma Gonzalez MD [facility] 3L [place] [phone] Health Maintenance Due Date Last Done Comments [...] 2021 MAMMOGRAM 12/31/2022 12/31/2020 DEPRESSION SCREENING 07/17/2024 INFLUENZA VACCINE (#1) 2025 2, 05/05/2021, 05/06/2020, Additional history exists HEPATITIS B [...] Procedure Name Priority Date/Time Associated Diagnosis Comments LAB RESULTS ORDER 02/13/2025 MM OUTSIDE MAMMOGRAM Routine 12/31/2020 11:03 AM CDT Lump or mass in breast from Last 3 Months or Most Recently Relevant to Health Maintenance Results * LAB RESULTS ORDER (02/13/2025) 02/13/2025 Narrative 02/13/2025 Ordered by an unspecified provider. us Scanned Document LAB - THERAPEUTIC DRUG MONITORI NG ORDERABLES Final Result * MM OUTSIDE MAMMO FILM READ (12/31/2020 [...] 11/13/2020) STUDY INITIALLY PERFORMED ON [11/13/2020] AT [[place], [place]]. The outside final report was provided at the time of this second opinion. DATE OF CONSULTATION: 01/06/2021 REASON FOR CONSULTATION: Left breast mass COMPARISON: Bilateral digital mammograms dated 11/12/2019 and 10/09/2018-[facility] The findings, conclusions and recommendations within this report do not replace the initial findings, conclusions and recommendations made at the facility where the study was performed based upon the imaging and clinical condition at that time. Comparison with the prior report and clinical history is necessary. The provided images may or may not represent the [place] source data set and thus may contain [...] 11/13/2020) STUDY INITIALLY PERFORMED ON [11/13/2020] AT [[place], [place]]. The outside final report was provided at the time of this secondopinion. DATE OF CONSULTATION: 01/06/2021 REASON FOR CONSULTATION: Left breast mass COMPARISON: Bilateral digital mammograms dated 11/12/2019 and 10/09/2018-[facility] The findings, conclusions and recommendations within this report do not replace the initial findings, conclusions and recommendations made atthe facility where the study was performed based upon the imaging andclinical condition at that time. Comparison with the prior report and clinical history is necessary. The provided images may or may not represent the [place] source data set and thus may contain [...] Relevant to Health Maintenance Insurance Care Teams Music Educator Relationship Specialty Start Date End Date Jacques Holguin DO [address] [place] [address] PCP - General Internal Medicine 06/03/24 Kayode Brizuela MD [address] [place] [address] Collaborating Physician Dermatology 09/12/19
--- OUTSIDE RECORDS SUMMARY | 2025-03-18 08:01 | XMS_ITS | Encounter Summary ---
Author Organization [facility] Address [address] [facility] [place] [address] Care Team Providers Care Work Manager Name Role Phone Sawyer Gardner PA-C Primary Care Provide r Kayode Brizuela MD Unavailable [phone] Jacques Holguin DO Primary Care Provider [phone] Reason for Visit * Reason Onset Date Comments MEDICATION REFILL 03/03/2021 Encounter Details Date Type Department Care Team (Late st Contact Info) Description 03/03/2021 Refill [facility] [address] [place] [address] Floridalma Gonzalez MD [address] [facility] 3L [place] [phone] MEDICATION REFILL Social History Tobacco Use Types [...] on file Legal Sex Female 6:12 AM CASINO ENFORCEMENT AGENT Gender Identity Not on file Sexual Orientation Not on file documented as of this encounter Plan of Treatment Upcoming Encounters Date Type Department Care Team (Late st Contact Info) Description 06/02/2025 10:00 AM CASINO ENFORCEMENT AGENT Office Visit [facility] [address] [facility], [place] [address] Floridalma Gonzalez MD [facility]5 [facility] 3L [place] [address] documented as of this encounter Visit Diagnoses Diagnosis Dermatomyositis (HCC) Dermatomyositis documented in this encounter Care Teams Work Manager Relationship Specialty Start Date End Date Sawyer Gardner PA-C [address] [place] [address] PCP - General 09/11/19 06/02/24 Jacques Holguin DO [address] [place] [address] PCP - General Internal Medicine 06/03/24 Kayode Brizuela MD [address] [address] Collaborating Physician Dermatology 09/12/19 documented as of this encounter
--- OUTSIDE RECORDS SUMMARY | 2025-03-18 08:01 | XMS_ITS | Encounter Summary ---
Author Organization [facility] Health Address [address] [facility] [place] [address] Care Team Providers Care Assistant Facility Manager Name Role Phone Sawyer Gardner PA-C Primary Care Provide r Kayode Brizuela MD Unavailable [phone] Jacques Holguin DO Primary Care Provider [phone] Encounter Details Date Type Department Care Team (Late st Contact Info) Description 08/05/2019 Lab Requisition [facility] [address] [place] [phone] Kayode Brizuela MD [address] [place] [address] Social History Tobacco Use Types Packs/Day Years Used Date Smoking Tobacco: Never Assessed Comments Unknown Sex and Gender Information Value Date Recorded Sex Assigned at Not on file Legal Sex Female 6:12 AM GIRLS SWIMMING COACH Gender Identity Not on file Sexual Orientation Not on file documented as of this encounter Plan of Treatment Upcoming Encounters Date Type Department Care Team (Late Contact Info) Description 06/02/2025 10:00 AM GIRLS SWIMMING COACH Office Visit [facility] [address] [place] [phone] Floridalma Gonzalez MD [address] [place] [address] 3 [place] [phone] documented as of this encounter Procedures Procedure Name Priority Date/Time Associated Diagnosis Comments DERMATOPATHOLOGY Routine 08/01/2019 12:0 0 AM GIRLS SWIMMING COACH documented in this encounter Results * DERMATOPATHOLOGY (08/01/2019 12:00 AM GIRLS SWIMMING COACH) Case Report Dermatopathology Report Case: [id number] Authorizing Provider: Kayode Brizuela MD Collected: 08/01/2019 12:00 AM Ordering Location: [facility] Received: 08/05/2019 07:17 AM Pathologist: Floridalma Gonzalez MD Specimens: A) - Skin, left upper back B) - Skin, left flex FA C) - Skin, right chest D) - Skin, dorsal left 3rd finger MCP joine 0 1:54 PM GIRLS SWIMMING COACH DERMATOPATHOLOGY LABORATORY Final Diagnosis Specimen A. SKIN, [...] microscopic description and comment) 0 1:54 PM GIRLS SWIMMING COACH DERMATOPATHOLOGY LABORATORY at 1354 GIRLS SWIMMING COACH Clinical History A-D: R/O dermatomyositis, photosensitivity dermatitis vs other. 0 1:54 PM GIRLS SWIMMING COACH DERMATOPATHOLOGY LABORATORY Gross Description Specimen A: Received is one formalin filled container labeled with the patient's name and designated left upper back. The specimen consists of a punch biopsy measuring [id number], bisected. Jar 0. Specimen B: Received is one formalin filled container labeled with the patient's name and designated left flex FA. The specimen consists of a punch biopsy measuring [id number], bisected. Jar 0. Specimen C: Received is one formalin filled container labeled with the patient's name and designated right chest. The specimen consists of a punch biopsy measuring [id number], bisected. Jar 0. Specimen D: Received is one formalin filled container labeled with the patient's name and designated dorsal left 3rd finger MCP joine. The specimen consists of a punch biopsy measuring [id number]. Jar 0. 0 1:54 PM [facility] DERMATOPATHOLOGY LABORATORY Microscopic Description Specimen A. [...] with serologies is recommended. 0 1:54 PM GIRLS SWIMMING COACH DERMATOPATHOLOGY LABORATORY Disclaimer An external and internal positive and negative controls are appropriate for the histochemical, immunohistochemical and immunofluorescence stain(s) in this case (if any), except where stated explicitly. The performance characteristics of the stain(s) cited in this report were developed and its performance characteristic determined by the Dermatopathology Laboratory at [facility], directed by Dr. Soren Gonzalez. These tests need not be, and therefore are not, approved by the [place] Food and Drug Administration. The tests are used for clinical purposes. Billing Codes Specimen Charges Stain Charges 45403 23935 [id number] 31579 1 1 1 1 0 1:54 PM GIRLS SWIMMING COACH DERMATOPATHOLOGY LABORATORY Embedded Images 0 1:54 PM GIRLS SWIMMING COACH DERMATOPATHOLOGY LABORATORY Pathology/Cytology TISSUE SPECIMEN FROM SKIN / Unknown 08/01/2019 08/05/2019 7:17 AM GIRLS SWIMMING COACH Miscellaneous samples (specimen) TISSUE SPECIMEN FROM SKIN / Unknown 08/01/2019 08/05/2019 7:17 AM GIRLS SWIMMING COACH Miscellaneous samples (specimen) TISSUE SPECIMEN FROM SKIN / Unknown 08/01/2019 08/05/2019 7:17 AM GIRLS SWIMMING COACH Miscellaneous samples (specimen) TISSUE SPECIMEN FROM SKIN / Unknown 08/01/2019 08/05/2019 7:17 AM GIRLS SWIMMING COACH Kayode Brizuela MD LAB - PATHOLOGY/CYTOLOGY ORD ERABLES Final Result DERMATOPATHOLOGY LABORATORY [facility] - Department of Dermatology [address] [place] [address], 5th Floor Lab [address] [phone] documented in this encounter Visit Diagnoses Not on filedocumented in this encounter Care Teams Assistant Facility Manager Relationship Specialty Start Date End Date Sawyer Gardner PA-C [address] [place], [place] [phone] PCP - General 09/11/19 06/02/24 Jacques Holguin DO [address] [place] [address] PCP - General Internal Medicine 06/03/24 Kayode Brizuela MD [address] [place] [address] Collaborating Physician Dermatology 09/12/19 documented as of this encounter
--- OUTSIDE RECORDS SUMMARY | 2025-03-18 08:01 | XMS_ITS | Encounter Summary ---
Author Organization [facility] Address [address] [facility] [place] [address] Care Team Providers Care Size Maker Name Role Phone Kayode Brizuela MD Unavailable [phone] Jacques Holguin DO Primary Care Provider [phone] Reason for Visit * Reason Onset Date Comments Appointment 11/18/2024 Encounter Details Date Type Department Care Team (Late st Contact Info) Description 11/18/2024 Telephone [facility] [address] [place] [address], [facility] [place] [address] Floridalma Gonzalez MD [facility] [address] Appointment Social History Tobacco Use [...] on file Legal Sex Female 6:12 AM TWO NEEDLE MACHINE OPERATOR Gender Identity Not on file [...] to scheduled sooner visit with provider. CB# [phone] documented in this encounter Plan of Treatment Upcoming Encounters Date Type Department Care Team (Late st Contact Info) Description 06/02/2025 10:00 AM TWO NEEDLE MACHINE OPERATOR Office Visit [facility] Derm[facility]ology [address] [place] [address], [facility] [place] [address] Floridalma Gonzalez MD [address] [place] [address] 3 [place] [address] documented as of this encounter Visit Diagnoses Not on filedocumented in this encounter Care Teams Size Maker Relationship Specialty Start Date End Date Jacques Holguin DO [address] [place] [address] PCP - General Internal Medicine 06/03/24 Kayode Brizuela MD [address] [place] [address] Collaborating Physician Dermatology 09/12/19 documented as of this encounter
--- OUTSIDE RECORDS SUMMARY | 2025-03-18 08:01 | XMS_ITS | Encounter Summary ---
Author Organization [facility] Address [address] [facility] [place] [address] Care Team Providers Care Corporate Strategist Name Role Phone Kayode Brizuela MD Unavailable [phone] Jacques Holguin DO Primary Care Provider [phone] Encounter Details Date Type Department Care Team (Late st Contact Info) Description 03/14/2025 Orders Only [facility] [address] [place] [address], [facility] [place] [address] Floridalma Gonzalez MD [address] [place] [address] [address] [place] [address] High risk medication use Social History Tobacco Use Types Packs/Day Years [...] on file Legal Sex Female 6:12 AM CREASING MACHINE OPERATOR Gender Identity Not on file Sexual Orientation Not on file documented as of this encounter Plan of Treatment Upcoming Encounters Date Type Department Care Team (Late st Contact Info) Description 06/02/2025 10:00 AM CREASING MACHINE OPERATOR Office Visit [facility] [address] [facility], [place] [address] Floridalma Gonzalez MD [address] [place] [address] 3 [place] [address] documented as of this encounter Visit Diagnoses Diagnosis High risk medication use Encounter for long-term (current) use of other medications documented in this encounter Care Teams Corporate Strategist Relationship Specialty Start Date End Date Jacques Holguin DO [address] [place], [place] [phone] PCP - General Internal Medicine 06/03/24 Kayode Brizuela MD [address] [place] [address] Collaborating Physician Dermatology 09/12/19 documented as of this encounter
--- OUTSIDE RECORDS SUMMARY | 2025-03-18 08:01 | XMS_ITS | Encounter Summary ---
Author Organization [facility] Health Address [address] [facility] [place] [address] Care Team Providers Care Signal Circuit Designer Name Role Phone Sawyer Gardner PA-C Primary Care Provide r Kayode Brizuela MD Unavailable [phone] Jacques Holguin DO Primary Care Provider [phone] Reason for Visit * Reason Onset Date Comments MEDICATION REFILL 07/14/2020 Encounter Details Date Type Department Care Team (Late st Contact Info) Description 07/14/2020 Refill [facility] [address] [place] [address], [place] [phone] Floridalma Gonzalez MD [address] [place] [address] 3 [place] [phone] MEDICATION REFILL Social History Tobacco Use Types [...] on file Legal Sex Female 6:12 AM MARKETING RESEARCH INTERN Gender Identity Not on file Sexual Orientation Not on file documented as of this encounter Plan of Treatment Upcoming Encounters Date Type Department Care Team (Late st Contact Info) Description 06/02/2025 10:00 AM MARKETING RESEARCH INTERN Office Visit [facility] [address] [facility], [place] [address] Floridalma Gonzalez MD [employer] 3L [place] [address] documented as of this encounter Visit Diagnoses Diagnosis Dermatomyositis (HCC) Dermatomyositis documented in this encounter Care Teams Signal Circuit Designer Relationship Specialty Start Date End Date Sawyer Gardner PA-C [address] [facility] [address] [place] [address] PCP - General 09/11/19 06/02/24 Jacques Holguin DO [address] [place] [address] PCP - General Internal Medicine 06/03/24 Kayode Brizuela MD [address] [place] [address] Collaborating Physician Dermatology 09/12/19 documented as of this encounter
[2025-03-18 10:17] LABS: Carcinoembryonic Antigen 0.8 ng/mL (0.0-3.0)
== END 2025-03-18 07:55 | disposition home or self-care (01) ==
LOC: ANHLAB 07:56
PROVIDERS: PCP Internal Medicine; Visit Provider Dermatology
DX: M33.13 Other dermatomyositis without myopathy (principal)
CPT/HCPCS: 36415; 82378

== ENCOUNTER 2025-03-25 08:05 | Outpatient (CLI) | payer OTHER, SELFPAY ==
--- NOTE | ~2025-03-25 | CT_ITS ---
EXAMINATION: CT chest abdomen pelvis w con DATE: 03/25/2025 08:37 INDICATION: Dermatomyositis. TECHNIQUE: Computed tomography (CT) of the chest, abdomen, and pelvis was performed with 100 mL Omnipaque 350 intravenous contrast. Automated exposure control and iterative reconstruction technique were employed. The dose-length product was 684.61 mGy-cm. COMPARISON: None FINDINGS: CHEST CT: There is minimal atelectasis in right lung. No pleural effusion. The heart size is normal. No pericardial effusion. There is a 4 mm nodule in left thyroid lobe, likely not clinically significant. There is moderate thoracic spondylosis. ABDOMEN/PELVIS CT: The liver and spleen are normal. There are gallstones in the gallbladder, which is distended. The pancreas, adrenal glands, and kidneys are normal. There is fat stranding at the root of the small bowel mesentery. There are no dilated loops of bowel. The appendix is normal. There are no pathologically enlarged lymph nodes. There is no free intraperitoneal fluid. There is severe lower lumbar spondylosis. IMPRESSION: 1. Cholelithiasis. Gallbladder distention may be secondary to fasting. 2. Fat stranding at the root of the small bowel mesentery, which may be edema or inflammation/scarring (mesenteric panniculitis). Reviewed, dictated and finalized at location E. IMPRESSION: 1. Cholelithiasis. Gallbladder distention may be secondary to fasting. 2. Fat stranding at the root of the small bowel mesentery, which may be edema o r inflammation/scarring (mesenteric panniculitis).
--- OUTSIDE RECORDS SUMMARY | 2025-03-25 08:33 | XMS_ITS | Clinical Summary ---
Author Organization [facility] Address [address] [facility] [place] [address] Care Team Providers Care Diesel Engine Ii Pipe Fitter Name Role Phone Kayode Brizuela MD Unavailable [phone] Jacques Holguin DO Primary Care Provider [phone] Source Comments [facility],non-owned Affiliates and Associated Physician Practices is amultiple site organization consisting of ambulatory clinics and hospital sitesin [place], [place], [place] and [place]. This disclosure is being madepursuant to the Care Everywhere program and may not contain all information available regarding this patient. Last updated 18.[facility] Allergies No known active allergies Medications * [...] PRN Assessment & Plan (09/16/2020 5:24 PM CHEF DE PARTIE): Status: better controlled, still active -Increase azathioprine [...] today Assessment & Plan (09/16/2020 4:19 PM CHEF DE PARTIE): - CBC, CMP Q2w ORDERED; provided paper orders Encounters Date Type Department Care Team Description 03/14/2025 Orders Only [facility] [address] [place] [phone] Floridalma Gonzalez MD High risk medication use 03/03/2025 11:30 AM CDT Office Visit [facility] [address] [place] [phone] Floridalma Gonzalez MD Dermatomyositis (HCC) (Primary Dx); High risk medication use; Rash and other nonspecific skin eruption 03/03/2025 Travel 02/08/2025 Refill [facility] [address] [place] [address] Floridalma Gonzalez MD Refill Request 01/13/2025 Refill [facility] [address] [facility], [place] [address] Floridalma Gonzalez MD Refill Request from Last 3 Months Immunizations Immunization Administration [...] on file Legal Sex Female 6:12 AM CHEF DE PARTIE Gender Identity Not on file Sexual Orientation [...] st Contact Info) Description 06/02/2025 10:00 AM CHEF DE PARTIE Office Visit [facility] [address] [facility], [place] [phone] Floridalma Gonzalez MD [address] [facility] 3L [place] [address] Health Maintenance Due Date Last [...] 11/13/2020) STUDY INITIALLY PERFORMED ON [11/13/2020] AT [[place], [place]]. The outside final report was provided at the time of this second opinion. DATE OF CONSULTATION: 01/06/2021 REASON FOR CONSULTATION: Left breast mass COMPARISON: Bilateral digital mammograms dated 11/12/2019 and 10/09/2018-[facility] The findings, conclusions and recommendations within this report do not replace the initial findings, conclusions and recommendations made at the facility where the study was performed based upon the imaging and clinical condition at that time. Comparison with the prior report and clinical history is necessary. The provided images may or may not represent the [place] source data set and thus may contain [...] 11/13/2020) STUDY INITIALLY PERFORMED ON [11/13/2020] AT [[place], [place]]. The outside final report was provided at the time of this secondopinion. DATE OF CONSULTATION: 01/06/2021 REASON FOR CONSULTATION: Left breast mass COMPARISON: Bilateral digital mammograms dated 11/12/2019 and 10/09/2018-[facility] The findings, conclusions and recommendations within this report do not replace the initial findings, conclusions and recommendations made atthe facility where the study was performed based upon the imaging andclinical condition at that time. Comparison with the prior report and clinical history is necessary. The provided images may or may not represent the [place] source data set and thus may contain [...] Name:Rachel Galvan Payer ID:[id number] (NAIC) Type:PPO Address: [place] [phone] Care Teams Diesel Engine Ii Pipe Fitter Relationship Specialty Start Date End Date Jacques Holguin DO [address] [place] [address] PCP - General Internal Medicine 06/03/24 Kayode Brizuela MD [address] [place] [address] Collaborating Physician Dermatology 09/12/19
--- OUTSIDE RECORDS SUMMARY | 2025-03-25 08:33 | XMS_ITS | Encounter Summary ---
Author Organization [facility] Health Address [address] [facility] [address] Care Team Providers Care Field Technical Specialist Name Role Phone Kayode Brizuela MD Unavailable [phone] Jacques Holguin DO Primary Care Provider [phone] Reason for Visit * Reason Comments Refill Request Encounter Details Date Type Department Care Team (Late st Contact Info) Description 02/08/2025 Refill [facility] [address] [place] [address], [facility] [place] [address] Floridalma Gonzalez MD [address] [place] [address] 3 [place] [phone] Refill Request Social History Tobacco Use Types Packs/Day Years [...] on file Legal Sex Female 6:12 AM BRAND INSPECTOR Gender Identity Not on file Sexual Orientation Not on file documented as of this encounter Miscellaneous Notes * Telephone Encounter - Patience Johnson - 02/11/2025 2:47 PM CDT LV 12/18/24 [place] 03/03/25 RTC Mar 03 2025 w/ Dr. Gonzalez. Patience Johnson documented in this encounter Plan of Treatment Upcoming Encounters Date Type Department Care Team (Late st Contact Info) Description 06/02/2025 10:00 AM BRAND INSPECTOR Office Visit [facility] [address] [place] [address], [place] [address] Floridalma Gonzalez MD [address] [place] [address] 3 [place] [address] documented as of this encounter Visit Diagnoses Diagnosis Dermatomyositis (HCC) Dermatomyositis documented in this encounter Care Teams Field Technical Specialist Relationship Specialty Start Date End Date Jacques Holguin DO [address] [place] [address] PCP - General Internal Medicine 06/03/24 Kayode Brizuela MD [address] [place] [address] Collaborating Physician Dermatology 09/12/19 documented as of this encounter
--- OUTSIDE RECORDS SUMMARY | 2025-03-25 08:33 | XMS_ITS | Encounter Summary ---
Author Organization [facility] Health Address [address] [facility] [place] [address] Care Team Providers Care Credit Control Manager Name Role Phone Kayode Brizuela MD Unavailable [phone] Jacques Holguin DO Primary Care Provider [phone] Reason for Visit * Reason Onset Date Comments Appointment 11/18/2024 Encounter Details Date Type Department Care Team (Late st Contact Info) Description 11/18/2024 Telephone [facility] [address] [place] [address], [facility] [place] [address] Floridalma Gonzalez MD [facility] [place] [address] Appointment Social History Tobacco Use [...] on file Legal Sex Female 6:12 AM RATE MANAGER Gender Identity Not on file Sexual Orientation [...] to scheduled sooner visit with provider. CB# [phone] documented in this encounter Plan of Treatment Upcoming Encounters Date Type Department Care Team (Late st Contact Info) Description 06/02/2025 10:00 AM RATE MANAGER Office Visit [facility] [address] [place] [address], [facility] [place] [address] Floridalma Gonzalez MD [address] [place] [address] 3 [place] [address] documented as of this encounter Visit Diagnoses Not on filedocumented in this encounter Care Teams Credit Control Manager Relationship Specialty Start Date End Date Jacques Holguin DO [address] [place] [address] PCP - General Internal Medicine 06/03/24 Kayode Brizuela MD [address] [place] [address] Collaborating Physician Dermatology 09/12/19 documented as of this encounter
--- OUTSIDE RECORDS SUMMARY | 2025-03-25 08:33 | XMS_ITS | Encounter Summary ---
Author Organization [facility] Health Address [address] [place] [address] Care Team Providers Care General Office Worker Name Role Phone Sawyer Gardner PA-C Primary Care Provide r Kayode Brizuela MD Unavailable [phone] Jacques Holguin DO Primary Care Provider [phone] Reason for Visit * Reason Onset Date Comments MEDICATION REFILL 07/14/2020 Encounter Details Date Type Department Care Team (Late st Contact Info) Description 07/14/2020 Refill [facility] [address] [place] [address], [place] [address] Floridalma Gonzalez MD [address] [place] [address] 3 [place] [address] MEDICATION REFILL Social History Tobacco Use Types [...] on file Legal Sex Female 6:12 AM REST ROOM MAID Gender Identity Not on file Sexual Orientation Not on file documented as of this encounter Plan of Treatment Upcoming Encounters Date Type Department Care Team (Late st Contact Info) Description 06/02/2025 10:00 AM REST ROOM MAID Office Visit [facility] [address] [facility], [place] [address] Floridalma Gonzalez MD [facility]5 [facility] 3L [place] [address] documented as of this encounter Visit Diagnoses Diagnosis Dermatomyositis (HCC) Dermatomyositis documented in this encounter Care Teams General Office Worker Relationship Specialty Start Date End Date Sawyer Gardner PA-C [address] [facility] [address] [place] [address] PCP - General 09/11/19 06/02/24 Jacques Holguin DO [address] [place] [address] PCP - General Internal Medicine 06/03/24 Kayode Brizuela MD [address] [place] [address] Collaborating Physician Dermatology 09/12/19 documented as of this encounter
--- OUTSIDE RECORDS SUMMARY | 2025-03-25 08:33 | XMS_ITS | Encounter Summary ---
Author Organization [facility] Health Address [address] [facility] [place] [address] Care Team Providers Care Evaluator Transfer Students Name Role Phone Sawyer Gardner PA-C Primary Care Provide r Kayode Brizuela MD Unavailable [phone] Jacques Holguin DO Primary Care Provider [phone] Reason for Visit * Reason Onset Date Comments MEDICATION REFILL 03/03/2021 Encounter Details Date Type Department Care Team (Late st Contact Info) Description 03/03/2021 Refill [facility] [address] [place] [address] Floridalma Gonzalez MD [address] [facility] 3L [place] [address] MEDICATION REFILL Social History Tobacco Use Types [...] on file Legal Sex Female 6:12 AM AUDIO VISUAL SECRETARY Gender Identity Not on file Sexual Orientation Not on file documented as of this encounter Plan of Treatment Upcoming Encounters Date Type Department Care Team (Late st Contact Info) Description 06/02/2025 10:00 AM AUDIO VISUAL SECRETARY Office Visit [facility] [address] [facility], [place] [address] Floridalma Gonzalez MD [facility]5 [facility] 3L [place] [address] documented as of this encounter Visit Diagnoses Diagnosis Dermatomyositis (HCC) Dermatomyositis documented in this encounter Care Teams Evaluator Transfer Students Relationship Specialty Start Date End Date Sawyer Gardner PA-C [address] [place] [address] PCP - General 09/11/19 06/02/24 Jacques Holguin DO [address] [place] [address] PCP - General Internal Medicine 06/03/24 Kayode Brizuela MD [address] [place] [address] Collaborating Physician Dermatology 09/12/19 documented as of this encounter
--- OUTSIDE RECORDS SUMMARY | 2025-03-25 08:33 | XMS_ITS | Encounter Summary ---
Author Organization [facility] Health Address [address] [place] [address] Care Team Providers Care Curtain Feller Blindstitch Name Role Phone Sawyer Gardner PA-C Primary Care Provide r Kayode Brizuela MD Unavailable Jacques Holguin DO Primary Care Provider Encounter Details Date Type Department Care Team (Late st Contact Info) Description 08/05/2019 Lab Requisition [facility] [address] [place] [phone] Kayode Brizuela MD [address] [place] [address] Social History Tobacco Use Types Packs/Day Years Used Date Smoking Tobacco: Never Assessed Comments Unknown Sex and Gender Information Value Date Recorded Sex Assigned at Not on file Legal Sex Female 6:12 AM ABRASIVE GRADER HELPER Gender Identity Not on file Sexual Orientation Not on file documented as of this encounter Plan of Treatment Upcoming Encounters Date Type Department Care Team (Late Contact Info) Description 06/02/2025 10:00 AM ABRASIVE GRADER HELPER Office Visit [facility] [address] [place] [phone] Floridalma Gonzalez MD [address] [place] [address] 3 [place] [address] documented as of this encounter Procedures Procedure Name Priority Date/Time Associated Diagnosis Comments DERMATOPATHOLOGY Routine 08/01/2019 12:0 0 AM ABRASIVE GRADER HELPER documented in this encounter Results * DERMATOPATHOLOGY (08/01/2019 12:00 AM ABRASIVE GRADER HELPER) Case Report Dermatopathology Report Case: [id number] Authorizing Provider: Kayode Brizuela MD Collected: 08/01/2019 12:00 AM Ordering Location: [facility] Received: 08/05/2019 07:17 AM Pathologist: Floridalma Gonzalez MD Specimens: A) - Skin, left upper back B) - Skin, left flex FA C) - Skin, right chest D) - Skin, dorsal left 3rd finger MCP joine 0 1:54 PM ABRASIVE GRADER HELPER DERMATOPATHOLOGY LABORATORY Final Diagnosis Specimen A. SKIN, [...] microscopic description and comment) 0 1:54 PM ABRASIVE GRADER HELPER DERMATOPATHOLOGY LABORATORY at 1354 ABRASIVE GRADER HELPER Clinical History A-D: R/O dermatomyositis, photosensitivity dermatitis vs other. 0 1:54 PM ABRASIVE GRADER HELPER DERMATOPATHOLOGY LABORATORY Gross Description Specimen A: Received is one formalin filled container labeled with the patient's name and designated left upper back. The specimen consists of a punch biopsy measuring [id number], bisected. Jar 0. Specimen B: Received is one formalin filled container labeled with the patient's name and designated left flex FA. The specimen consists of a punch biopsy measuring [id number], bisected. Jar 0. Specimen C: Received is one formalin filled container labeled with the patient's name and designated right chest. The specimen consists of a punch biopsy measuring [id number], bisected. Jar 0. Specimen D: Received is one formalin filled container labeled with the patient's name and designated dorsal left 3rd finger MCP joine. The specimen consists of a punch biopsy measuring [id number]. Jar 0. 0 1:54 PM [facility] DERMATOPATHOLOGY LABORATORY Microscopic Description Specimen A. SKIN, [...] with serologies is recommended. 0 1:54 PM ABRASIVE GRADER HELPER DERMATOPATHOLOGY LABORATORY Disclaimer An external and internal positive and negative controls are appropriate for the histochemical, immunohistochemical and immunofluorescence stain(s) in this case (if any), except where stated explicitly. The performance characteristics of the stain(s) cited in this report were developed and its performance characteristic determined by the Dermatopathology Laboratory at [facility], directed by Dr. Soren Gonzalez. These tests need not be, and therefore are not, approved by the [place] Food and Drug Administration. The tests are used for clinical purposes. Billing Codes Specimen Charges Stain Charges 08977 10618 [id number] 91421 1 1 1 1 0 1:54 PM ABRASIVE GRADER HELPER DERMATOPATHOLOGY LABORATORY Embedded Images 0 1:54 PM ABRASIVE GRADER HELPER DERMATOPATHOLOGY LABORATORY Pathology/Cytology TISSUE SPECIMEN FROM SKIN / Unknown 08/01/2019 08/05/2019 7:17 AM ABRASIVE GRADER HELPER Miscellaneous samples (specimen) TISSUE SPECIMEN FROM SKIN / Unknown 08/01/2019 08/05/2019 7:17 AM ABRASIVE GRADER HELPER Miscellaneous samples (specimen) TISSUE SPECIMEN FROM SKIN / Unknown 08/01/2019 08/05/2019 7:17 AM ABRASIVE GRADER HELPER Miscellaneous samples (specimen) TISSUE SPECIMEN FROM SKIN / Unknown 08/01/2019 08/05/2019 7:17 AM ABRASIVE GRADER HELPER Kayode Brizuela MD LAB - PATHOLOGY/CYTOLOGY ORD ERABLES Final Result DERMATOPATHOLOGY LABORATORY [facility] - Department of Dermatology [address] [place] [address], 5th Floor Lab [address] [phone] documented in this encounter Visit Diagnoses Not on filedocumented in this encounter Care Teams Curtain Feller Blindstitch Relationship Specialty Start Date End Date Sawyer Gardner PA-C [address] [place], [place] [phone] PCP - General 09/11/19 06/02/24 Jacques Holguin DO [address] [place] [address] PCP - General Internal Medicine 06/03/24 Kayode Brizuela MD [address] [place] [address] Collaborating Physician Dermatology 09/12/19 documented as of this encounter
== END 2025-03-25 08:06 | disposition home or self-care (01) ==
PROVIDERS: PCP Internal Medicine
DX: M33.13 Other dermatomyositis without myopathy (principal); K80.20 Calculus of gallbladder without cholecystitis without obstruction
CPT/HCPCS: 71260; 74177; Q9967

== ENCOUNTER 2025-04-01 13:44 | Outpatient (RCR) | payer OTHER, SELFPAY ==
[2025-04-01 14:19] LABS: Hematocrit 37.3 % (37.0-47.0); Hemoglobin 12.4 g/dL (12.0-15.0); Immature Granulocyte Percent A 0.2 % (0-0.5); Lymphocytes Absolute Auto 0.97 K/mm3 (0.9-3.2); Mean Corpuscular HGB Conc 33.2 g/dl (32-36); Mean Corpuscular Hemoglobin 31.6 pg (26-34); Mean Corpuscular Volume 95.2 fl (80-100); Nucleated Red Blood Cells Absolute Auto 0.000 K/mm3 (0.0-0.012); Nucleated Red Blood Cells Perc 0.0 % (0.0-0.2); Platelet Count Result 224 k/mm3 (150-375); Red Blood Count 3.92 M/mm3 (4.2-5.4); White Blood Count 4.6 K/mm3 (4.5-10.0)
[2025-04-01 14:32] LABS: Alanine Aminotransferase 17 U/L (6-35); Albumin Level 4.3 g/dL (3.5-5.1); Alkaline Phosphatase 61 U/L (38-126); Anion Gap 9 mmol/L (4-12); Aspartate Amino Transferase 30 U/L (14-36); Bilirubin,Total 0.5 mg/dL (0.2-1.3); Blood Urea Nitrogen 23 mg/dL (7-17); Calcium 9.3 mg/dL (8.4-10.2); Carbon Dioxide 24 mmol/L (22-30); Chloride 103 mmol/L (98-107); Estimated Glomerular Filt Rate > 60; Glucose 106 mg/dL (65-110); Potassium 3.8 mmol/L (3.4-5.0); Sodium 136 mmol/L (137-145); Total Protein 6.6 g/dL (6.3-8.2)
== END 2025-05-06 13:44 | disposition home or self-care (01) ==
LOC: ANHLAB 13:44
PROVIDERS: PCP Internal Medicine; Visit Provider Dermatology
DX: Z51.81 Encounter for therapeutic drug level monitoring (principal); Z79.899 Other long term (current) drug therapy
CPT/HCPCS: 36415; 80053; 85025

== ENCOUNTER 2025-04-17 11:07 | Outpatient (CLI) | payer OTHER, SELFPAY ==
--- NOTE | ~2025-04-17 | MM_ITS ---
EXAMINATION: MM screening [facility] BI w gina HISTORY: Screening TECHNIQUE: Craniocaudal and mediolateral oblique 3-D tomosynthesis images were obtained and synthetic 2-D images were generated. CAD analysis was submitted and interpreted. COMPARISON: Comparison to multiple prior studies sequentially, with oldest reviewed study dated 10/09/2018. BREAST PARENCHYMAL COMPOSITION: Not dense: There are scattered areas of fibroglandular density. FINDINGS: There is no evidence of suspicious mass, calcification, or architectural distortion to suggest malignancy in either breast. There has been no suspicious interval change. IMPRESSION: 1. No mammographic evidence of malignancy. 2. Recommend routine screening mammography in one year. BI-RADS Category 1: Negative Reviewed, dictated and finalized at location B.
--- OUTSIDE RECORDS SUMMARY | 2025-04-17 11:38 | XMS_ITS | Encounter Summary ---
Author Organization [facility] Health Address [address] [facility] [place] [address] Care Team Providers Care Repeater Operator Name Role Phone Kayode Brizuela MD Unavailable [phone] Jacques Holguin DO Primary Care Provider [phone] Reason for Visit * Reason Onset Date Comments Appointment 11/18/2024 Encounter Details Date Type Department Care Team (Late st Contact Info) Description 11/18/2024 Telephone [facility] [address] [place] [address], [facility] [place] [address] [facility] [place] [address] Appointment Social History Tobacco Use [...] on file Legal Sex Female 6:12 AM EXTRUSION PRESS ADJUSTER Gender Identity Not on file Sexual Orientation [...] to scheduled sooner visit with provider. CB# [phone] documented in this encounter Plan of Treatment Upcoming Encounters Date Type Department Care Team (Late st Contact Info) Description 06/02/2025 10:00 AM EXTRUSION PRESS ADJUSTER Office Visit [facility] - Dermatology [address] [place] [address], [facility] [place] [address] Floridalma Gonzalez MD [address] [place] [address] 3 [place] [address] documented as of this encounter Visit Diagnoses Not on filedocumented in this encounter Care Teams Repeater Operator Relationship Specialty Start Date End Date Jacques Holguin DO [address] [place] [address] PCP - General Internal Medicine 06/03/24 Kayode Brizuela MD [address] [place] [address] Collaborating Physician Dermatology 09/12/19 documented as of this encounter
--- OUTSIDE RECORDS SUMMARY | 2025-04-17 11:38 | XMS_ITS | Encounter Summary ---
Author Organization [facility] Health Address [address] [facility] [place] [address] Care Team Providers Care Emergency Physician Name Role Phone Kayode Brizuela MD Unavailable [phone] Jacques Holguin DO Primary Care Provider [phone] Encounter Details Date Type Department Care Team (Late st Contact Info) Description 04/11/2025 Orders Only [facility] [address] [place] [address], [facility] [place] [address] Floridalma Gonzalez MD [address] [place] [address] [address] [place] [address] High risk medication use Social [...] on file Legal Sex Female 6:12 AM ARTS AND HUMANITIES COUNCIL DIRECTOR Gender Identity Not on file Sexual Orientation Not on file documented as of this encounter Plan of Treatment Upcoming Encounters Date Type Department Care Team (Late st Contact Info) Description 06/02/2025 10:00 AM ARTS AND HUMANITIES COUNCIL DIRECTOR Office Visit [facility] [address] [facility], [place] [address] Floridalma Gonzalez MD [address] [place] [address] 3 [place] [address] documented as of this encounter Visit Diagnoses Diagnosis High risk medication use Encounter for long-term (current) use of other medications documented in this encounter Care Teams Emergency Physician Relationship Specialty Start Date End Date Jacques Holguin DO [address] [place], [place] [phone] PCP - General Internal Medicine 06/03/24 Kayode Brizuela MD [address] [place] [address] Collaborating Physician Dermatology 09/12/19 documented as of this encounter
--- OUTSIDE RECORDS SUMMARY | 2025-04-17 11:38 | XMS_ITS | Clinical Summary ---
Author Organization [facility] Address [address] [place] [address] Care Team Providers Care Corrosion Prevention Metal Sprayer Name Role Phone Kayode Brizuela MD Unavailable [phone] Jacques Holguin DO Primary Care Provider [phone] Source Comments [facility],non-owned Affiliates and Associated Physician Practices is amultiple site organization consisting of ambulatory clinics and hospital sitesin [place], [place], [place] and [place]. This disclosure is being madepursuant to the Care Everywhere program and may not contain all information available regarding this patient. Last updated 18.[facility] Allergies No known active allergies Medications * [...] tablet by mouth once daily Active Calcium Carb-Cholecalcifer ol (CALCIUM 1000 + D PO) Take 1 [...] route every 6 hours as needed Active Vitamins-Lipotropi cs (SUPER B-50 COMPLEX PLUS PO) Super B-50 Complex Active valACYclovir (Valtrex) 1 GM tablet Take 2 (two) tablets by mouth every 12 hours 3 Active triamcinolone acetonide (Kenalog) 0.1 % creamIndications:D ermatomyositis (HCC) Apply to affected area on body BID PRN. 30 day supply. 80 g 5 4 Active clobetasol (Temovate) 0.05 % solutionIndication s:Dermatomyositis (HCC) Apply to the scalp nightly. 30 days supply. Put on at night and wash your hair in the morning (on the scalp for 6-8 hours) 50 mL 3 5 Active azaTHIOprine (Imuran) 50 MG tabletIndications: Dermatomyositis (HCC) Take 2 tablets in the morning and 1 tablet in the evening. 90 tablet 5 5 Active hydroxychloroquine (Plaquenil) 200 MG tabletIndications: Dermatomyositis (HCC) Take 1 (one) tablet by mouth 2 times daily 60 tablet 5 5 Active hydrocortisone (Hytone) 2.5 % creamIndications:D ermatomyositis (HCC),Rash and other nonspecific skin eruption Apply to rash on face twice daily. 30 days supply. 30 g 5 Active Active Problems Problem Noted Date Diagnosed Date [...] PRN Assessment & Plan (09/16/2020 5:24 PM BRAKE LINING CURER): Status: better controlled, still active -Increase azathioprine [...] today Assessment & Plan (09/16/2020 4:19 PM BRAKE LINING CURER): - CBC, CMP Q2w ORDERED; provided paper orders Encounters Date Type Department Care Team Description 04/11/2025 Orders Only [facility] [address] [place] [phone] Floridalma Gonzalez MD High risk medication use 03/28/2025 Orders Only [facility] [address] [place] [phone] Floridalma Gonzalez MD High risk medication use 03/14/2025 Orders Only [facility] [address] [place] [phone] Floridalma Gonzalez MD High risk medication use 03/03/2025 11:30 AM CDT Office Visit [facility] [address] [place] [phone] Floridalma Gonzalez MD Dermatomyositis (HCC) (Primary Dx); High risk medication use; Rash and other nonspecific skin eruption 03/03/2025 Travel 02/08/2025 Refill [facility] [address] [place] [phone] Floridalma Gonzalez MD Refill Request from Last [...] on file Legal Sex Female 6:12 AM BRAKE LINING CURER Gender Identity Not on file Sexual Orientation [...] st Contact Info) Description 06/02/2025 10:00 AM BRAKE LINING CURER Office Visit [facility] [address] [facility], [place] [address] Floridalma Gonzalez MD [facility]5 [facility] 3 [place] [phone] Health Maintenance Due Date Last Done Comments [...] 11/13/2020) STUDY INITIALLY PERFORMED ON [11/13/2020] AT [[facility], [place], [place]]. The outside final report was provided at the time of this second opinion. DATE OF CONSULTATION: 01/06/2021 REASON FOR CONSULTATION: Left breast mass COMPARISON: Bilateral digital mammograms dated 11/12/2019 and 10/09/2018-[facility] The findings, conclusions and recommendations within this report do not replace the initial findings, conclusions and recommendations made at the facility where the study was performed based upon the imaging and clinical condition at that time. Comparison with the prior report and clinical history is necessary. The provided images may or may not represent the [place] source data set and thus may contain [...] 11/13/2020) STUDY INITIALLY PERFORMED ON [11/13/2020] AT [[place], [place]]. The outside final report was provided at the time of this secondopinion. DATE OF CONSULTATION: 01/06/2021 REASON FOR CONSULTATION: Left breast mass COMPARISON: Bilateral digital mammograms dated 11/12/2019 and 10/09/2018-[facility] The findings, conclusions and recommendations within this report do not replace the initial findings, conclusions and recommendations made atthe facility where the study was performed based upon the imaging andclinical condition at that time. Comparison with the prior report and clinical history is necessary. The provided images may or may not represent the [place] source data set and thus may contain [...] Most Recently Relevant to Health Maintenance Insurance [id number] Care Teams Corrosion Prevention Metal Sprayer Relationship Specialty Start Date End Date Jacques Holguin DO [address] [place] [address] PCP - General Internal Medicine 06/03/24 Kayode Brizuela MD [address] [place] [address] Collaborating Physician Dermatology 09/12/19
--- OUTSIDE RECORDS SUMMARY | 2025-04-17 11:38 | XMS_ITS | Encounter Summary ---
Author Organization [facility] Health Address [address] [place] [address] Care Team Providers Care River Pilot Name Role Phone Sawyer Gardner PA-C Primary Care Provide r Kayode Brizuela MD Unavailable [phone] Jacques Holguin DO Primary Care Provider [phone] Reason for Visit * Reason Onset Date Comments MEDICATION REFILL 03/03/2021 Encounter Details Date Type Department Care Team (Late st Contact Info) Description 03/03/2021 Refill [facility] [address] [place] [address] Floridalma Gonzalez MD [address] [facility] [address]L [place] [phone] MEDICATION REFILL Social History Tobacco Use Types [...] file Legal Sex Female 6:12 AM TUNNEL DRIER OPERATOR Gender Identity Not on file Sexual Orientation Not on file documented as of this encounter Plan of Treatment Upcoming Encounters Date Type Department Care Team (Late st Contact Info) Description 06/02/2025 10:00 AM TUNNEL DRIER OPERATOR Office Visit [facility] [address] [facility], [place] [address] Floridalma Gonzalez MD [facility] [facility] [address]L [place] [address] documented as of this encounter Visit Diagnoses Diagnosis Dermatomyositis (HCC) Dermatomyositis documented in this encounter Care Teams River Pilot Relationship Specialty Start Date End Date Sawyer Gardner PA-C [address] [place] [address] PCP - General 09/11/19 06/02/24 Jacques Holguin DO [address] [place] [address] PCP - General Internal Medicine 06/03/24 Kayode Brizuela MD [address] [place] [address] Collaborating Physician Dermatology 09/12/19 documented as of this encounter
--- OUTSIDE RECORDS SUMMARY | 2025-04-17 11:38 | XMS_ITS | Encounter Summary ---
Author Organization [facility] Health Address [address] [place] [address] Care Team Providers Care Mold Stamper Name Role Phone Sawyer Gardner PA-C Primary Care Provide r Kayode Brizuela MD Unavailable [phone] Jacques Holguin DO Primary Care Provider [phone] Reason for Visit * Reason Onset Date Comments MEDICATION REFILL 07/14/2020 Encounter Details Date Type Department Care Team (Late st Contact Info) Description 07/14/2020 Refill [facility] [address] [place] [address], [place] [phone] Floridalma Gonzalez MD [address] [place] [place] [address] 3 [place] [phone] MEDICATION REFILL Social History Tobacco Use Types [...] on file Legal Sex Female 6:12 AM COMPUTER AIDED DESIGN OPERATOR Gender Identity Not on file Sexual Orientation Not on file documented as of this encounter Plan of Treatment Upcoming Encounters Date Type Department Care Team (Late st Contact Info) Description 06/02/2025 10:00 AM COMPUTER AIDED DESIGN OPERATOR Office Visit [facility] [address] [facility], [place] [address] Floridalma Gonzalez MD [facility] [facility] 3L [place] [address] documented as of this encounter Visit Diagnoses Diagnosis Dermatomyositis (HCC) Dermatomyositis documented in this encounter Care Teams Mold Stamper Relationship Specialty Start Date End Date Sawyer Gardner PA-C [address] [facility] [address] [place] [address] PCP - General 09/11/19 06/02/24 Jacques Holguin DO [address] [place] [address] PCP - General Internal Medicine 06/03/24 Kayode Brizuela MD [address] [place] [address] Collaborating Physician Dermatology 09/12/19 documented as of this encounter
--- OUTSIDE RECORDS SUMMARY | 2025-04-17 11:38 | XMS_ITS | Encounter Summary ---
Author Organization [facility] Health Address [address] [place] [address] Care Team Providers Care Payroll Associate Name Role Phone Sawyer Gardner PA-C Primary Care Provide r Kayode Brizuela MD Unavailable [phone] Jacques Holguin DO Primary Care Provider [phone] Encounter Details Date Type Department Care Team (Late st Contact Info) Description 08/05/2019 Lab Requisition [facility] [address] [place] [phone] Kayode Brizuela MD [address] [place] [address] Social History Tobacco Use Types Packs/Day Years Used Date Smoking Tobacco: Never Assessed Comments Unknown Sex and Gender Information Value Date Recorded Sex Assigned at Not on file Legal Sex Female 6:12 AM COUNTERINTELLIGENCE ANALYST Gender Identity Not on file Sexual Orientation Not on file documented as of this encounter Plan of Treatment Upcoming Encounters Date Type Department Care Team (Late Contact Info) Description 06/02/2025 10:00 AM COUNTERINTELLIGENCE ANALYST Office Visit [facility] [address] [place] [phone] Floridalma Gonzalez MD [address] [place] [address] 3 [place] [phone] documented as of this encounter Procedures Procedure Name Priority Date/Time Associated Diagnosis Comments DERMATOPATHOLOGY Routine 08/01/2019 12:0 0 AM COUNTERINTELLIGENCE ANALYST documented in this encounter Results * DERMATOPATHOLOGY (08/01/2019 12:00 AM COUNTERINTELLIGENCE ANALYST) Case Report Dermatopathology Report Case: [id number] Authorizing Provider: Kayode Brizuela MD Collected: 08/01/2019 12:00 AM Ordering Location: [facility] Lab Received: 08/05/2019 07:17 AM Pathologist: Floridalma Gonzalez MD Specimens: A) - Skin, left upper back B) - Skin, left flex FA C) - Skin, right chest D) - Skin, dorsal left 3rd finger MCP joine 0 1:54 PM COUNTERINTELLIGENCE ANALYST DERMATOPATHOLOGY LABORATORY Final Diagnosis Specimen A. SKIN, [...] microscopic description and comment) 0 1:54 PM COUNTERINTELLIGENCE ANALYST DERMATOPATHOLOGY LABORATORY at 1354 COUNTERINTELLIGENCE ANALYST Clinical History A-D: R/O dermatomyositis, photosensitivity dermatitis vs other. 0 1:54 PM COUNTERINTELLIGENCE ANALYST DERMATOPATHOLOGY LABORATORY Gross Description Specimen A: Received is one formalin filled container labeled with the patient's name and designated left upper back. The specimen consists of a punch biopsy measuring [id number], bisected. Jar 0. Specimen B: Received is one formalin filled container labeled with the patient's name and designated left flex FA. The specimen consists of a punch biopsy measuring [id number], bisected. Jar 0. Specimen C: Received is one formalin filled container labeled with the patient's name and designated right chest. The specimen consists of a punch biopsy measuring [id number], bisected. Jar 0. Specimen D: Received is one formalin filled container labeled with the patient's name and designated dorsal left 3rd finger MCP joine. The specimen consists of a punch biopsy measuring [id number]. Jar 0. 0 1:54 PM [facility] DERMATOPATHOLOGY LABORATORY Microscopic Description Specimen A. SKIN, [...] with serologies is recommended. 0 1:54 PM COUNTERINTELLIGENCE ANALYST DERMATOPATHOLOGY LABORATORY Disclaimer An external and internal positive and negative controls are appropriate for the histochemical, immunohistochemical and immunofluorescence stain(s) in this case (if any), except where stated explicitly. The performance characteristics of the stain(s) cited in this report were developed and its performance characteristic determined by the Dermatopathology Laboratory at [facility], directed by Dr. Soren Gonzalez. These tests need not be, and therefore are not, approved by the [place] Food and Drug Administration. The tests are used for clinical purposes. Billing Codes Specimen Charges Stain Charges 65012 [id number] [id number] 1 1 1 1 0 1:54 PM COUNTERINTELLIGENCE ANALYST DERMATOPATHOLOGY LABORATORY Embedded Images 0 1:54 PM COUNTERINTELLIGENCE ANALYST DERMATOPATHOLOGY LABORATORY Pathology/Cytology TISSUE SPECIMEN FROM SKIN / Unknown 08/01/2019 08/05/2019 7:17 AM COUNTERINTELLIGENCE ANALYST Miscellaneous samples (specimen) TISSUE SPECIMEN FROM SKIN / Unknown 08/01/2019 08/05/2019 7:17 AM COUNTERINTELLIGENCE ANALYST Miscellaneous samples (specimen) TISSUE SPECIMEN FROM SKIN / Unknown 08/01/2019 08/05/2019 7:17 AM COUNTERINTELLIGENCE ANALYST Miscellaneous samples (specimen) TISSUE SPECIMEN FROM SKIN / Unknown 08/01/2019 08/05/2019 7:17 AM COUNTERINTELLIGENCE ANALYST Kayode Brizuela MD LAB - PATHOLOGY/CYTOLOGY ORD ERABLES Final Result DERMATOPATHOLOGY LABORATORY [facility] - Department of Dermatology [address] [place] [address], [address] Floor Lab [address] [phone] documented in this encounter Visit Diagnoses Not on filedocumented in this encounter Care Teams Payroll Associate Relationship Specialty Start Date End Date Sawyer Gardner PA-C [address] [place], [place] [phone] PCP - General 09/11/19 06/02/24 Jacques Holguin DO [address] [place] [address] PCP - General Internal Medicine 06/03/24 Kayode Brizuela MD [address] [place] [address] Collaborating Physician Dermatology 09/12/19 documented as of this encounter
== END 2025-04-17 11:08 | disposition home or self-care (01) ==
LOC: ANHFOHIMG 11:10
PROVIDERS: PCP Internal Medicine; Visit Provider Obstetrics & Gynecology
DX: Z12.31 Encounter for screening mammogram for malignant neoplasm of breast (principal)
CPT/HCPCS: 77063; 77067